=== PATIENT | male | born 1955 | race Caucasian/White ===

== ENCOUNTER 2016-05-30 14:17 | Inpatient (IN) | payer OTHER ==
[~2016-05-30] VITALS: Ht 172.7 cm; Wt 98.8 kg
[2016-05-30] MEDS ORDERED: AMIO200T2 PO (15:19)
[2016-05-30] MEDS ORDERED: ATOR20TA38 PO (15:20)
[2016-05-30] MEDS ORDERED: ALBUTEROL 0.5% (NEB) 2.5 MG/0.5 ML AMP INH STA ×2 (15:20→19:29)
[2016-05-30] MEDS ORDERED: FURO40TA4 PO (15:20)
[2016-05-30] MEDS ORDERED: CLOP75TA27 PO (15:20)
[2016-05-30] MEDS ORDERED: IPRATROPIUM (NEB) 0.5 MG/2.5 ML AMP INH STA ×2 (15:20→19:29)
[2016-05-30] MEDS ORDERED: CARV12.579 PO (15:22)
[2016-05-30] MEDS ORDERED: LOSA25TA5 PO (15:22)
[2016-05-30] MEDS ORDERED: POTA10TA15 PO (15:25)
[2016-05-30] MEDS ORDERED: NIT4 SL (15:26)
[2016-05-30] MEDS ORDERED: LORA-441 PO (15:26)
[2016-05-30 15:38] LABS: AADO2 Arterial 64.2 mmHg (7.0-24.0); Allen Test ACCEPTAB; Arterial COHb 2.6 % (0.0-3.0); Arterial Fraction of Oxyhgb 90.6 % (93.0-99.0); Arterial HCO3 25.7 mmol/L (22.0-26.0); Arterial MetHb 0.3 % (0.0-1.5); Arterial Total Hemglobin 15.7 g/dl (12.0-18.0); MODE NASAL CANNULA
--- NOTE | 2016-05-30 15:53 | ERA ---
ER Documentation Chief Complaint Date/Time DATE: 05/30/16 TIME: 15:48 Chief Complaint SOB SINCE LAST NIGHT, 88% RA, HAD 1 STENT PLACED LAST WEEK HPI This is a 61-year-old male presents to the emergency department complaining of a sudden onset of shortness of breath that began roughly 24 hours prior to arrival. The patient indicates 7 days prior to arrival he had a cardiac stent placed at [facility] with 90% occlusion however the patient is unaware of which artery the stent was placed. He indicates that his shortness of breath is exacerbated with movement. He also indicates that just prior to arrival he felt as though an elephant was sitting on his chest. He is unable to quantify the chest pain as he states it is not necessarily a pain but rather severe discomfort with chest pressure. The patient states that the chest pressure does not radiate to the neck arm back or jaw . He is on Plavix and indicates he was placed on another medication but cannot remember the name but was unable to have this filled. He has had no fevers no shaking or chills. He denies any swelling of his lower extremities. He did not take any analgesic medication prior to arrival and he is taking aspirin on a daily basis. The patient indicates he quit tobacco several months ago but does state that over the past few days he has smoked a few cigarettes. ROS All systems reviewed and are negative except as per history of present illness. Medications Home Meds Reported Medications Nitroglycerin* (Nitrostat*) 0.4 Mg Tab.subl, 0.4 MG SL Q5MIN Y for CHEST PAIN, BOTTLE 05/30/16 Lorazepam* (Ativan*) 0.5 Mg Tablet, 0.5 MG PO HS, #30 TAB 05/30/16 Potassium Chloride (Klor-Con M10) 10 Meq Tab.prt.sr, 10 MEQ PO 05/30/16 Carvedilol* (Carvedilol*) 12.5 Mg Tablet, 12.5 MG PO BID, #60 TAB 05/30/16 Losartan Potassium* (Losartan Potassium*) 25 Mg Tablet, 25 MG PO DAILY, TAB HOLD IF BPS<105 05/30/16 Furosemide* (Furosemide*) 40 Mg Tablet, 40 MG PO DAILY, TAB 05/30/16 Atorvastatin Calcium* (Atorvastatin Calcium*) 20 Mg Tablet, 20 MG PO QHS, #30 TAB 05/30/16 Clopidogrel Bisulfate (Clopidogrel) 75 Mg Tablet, 75 MG PO DAILY, #30 TAB 05/30/16 Amiodarone Hcl* (Amiodarone Hcl*) 200 Mg Tablet, 200 MG PO BID, #60 TAB 05/30/16 Allergies Allergies: Coded Allergies: No Known Allergy (Unverified , 05/30/16) PMhx/Soc History of Surgery: Yes (stent) Anesthesia Reaction: No Hx Neurological Disorder: No Hx Respiratory Disorders: No Hx Cardiac Disorders: Yes Hx Psychiatric Problems: No Hx Miscellaneous Medical Probl: Yes (hernia) Hx Alcohol Use: Yes Hx Substance Use: No Hx Tobacco Use: Yes Smoking Status: Current some day smoker Physical Exam Vitals Vital Signs Date Time Temp Pulse Resp B/P Pulse Ox O2 Delivery O2 Flow Rate FiO2 05/30/16 17:49 Non Rebreather 7 05/30/16 17:47 98.3 102 20 132/79 98 Room Air 2.0 05/30/16 15:42 110 22 96 Nasal Cannula 2.0 05/30/16 15:42 2.0 05/30/16 15:35 Nasal Cannula 2.0 05/30/16 14:23 97.7 98 20 156/87 95 Physical Exam Constitutional:Well-developed. Well-nourished. Patient in severe respiratory distress HEENT:Normocephalic. Atraumatic.Pupils were equal round reactive to light. Moist mucous membranes.No tonsillar exudates. Neck: No nuchal rigidity. No lymphadenopathy. No posterior cervical spine tenderness or step-offs. Respiratory: Patient using accessory muscles of respiration. Rhonchi heard bilaterally. No wheezing on end auscultation. Patient unable to speak more than 2 words at a time before becoming short of breath Cardiovascular: Tachycardic with irregular regular rhythm.No murmurs. No rubs were appreciated.S1, S2 normal. Distal pulses are palpable 2+ bilaterally. GI: Abdomen was soft. Nontender. Non Distended. No pulsatile abdominal masses or bruits. No rebound. No guarding. Bowel sounds were present and normal. Muscle skeletal: Full range of motion of both the upper and lower extremities bilaterally.Normal muscle tone.No assymetrical calf tenderness or swelling. Homans sign negative bilaterally Skin: No petechia, no purpura. No lesions on the palms or the soles of the feet. No maculopapular rash. NEURO: Patient was alert, awake, orientated x3.No facial droop. Gait observed and normal with no ataxia.Speech had regular rate and rhythm. No focal neurological deficits. Result Diagram: 05/30/16 1617 05/30/16 1617 Results 24 hrs Laboratory Tests Test 05/30/16 15:20 05/30/16 16:17 Blood Gas Specimen Source Blood arterial Arterial Blood Date Drawn 05/30/2016 3:30:34 PM Arterial Blood pH (Temp corrected) 7.328 Arterial Blood pCO2 (Temp correct) 50.0mmhg Arterial Blood pO2 (Temp corrected) 69.2mmHG Arterial Blood HCO3 25.7mmol/L Arterial Blood Base Excess -1.0mmol/L Arterial Blood Oxygen Saturation 93.3mmHG Jayro Test ACCEPTAB Arterial Blood Gas Puncture Site Right Radial Arterial Blood Carboxyhemoglobin 2.6% Arterial Blood Methemoglobin 0.3% Blood Gas A-a O2 Differential 64.2mmHg Oxyhemoglobin Percent 90.6% Total Hemoglobin 15.7g/dl Blood Gas Temperature 37.0C Blood Gas Modality NASAL CANNULA FiO2 27.0% Blood Gas Notified Whom JLD Blood Gas Notified Time 05/30/2016 3:38:09 PM White Blood Count 8.110^3/ul Red Blood Count 4.6110^6/ul Hemoglobin 14.8g/dl Hematocrit 45.8% Mean Corpuscular Volume 99.3fl Mean Corpuscular Hemoglobin 32.1pg Mean Corpuscular Hemoglobin Concent 32.3g/dl Red Cell Distribution Width 15.7% Platelet Count 22704^3/UL Mean Platelet Volume 11.6fl Neutrophils % 73.8% Lymphocytes % 13.6% Monocytes % 9.9% Eosinophils % 1.7% Basophils % 0.5% Nucleated Red Blood Cells % 0.0/100WBC Neutrophils # 6.010^3/ul Lymphocytes # 1.110^3/ul Monocytes # 0.810^3/ul Eosinophils # 0.110^3/ul Basophils # 0.010^3/ul Nucleated Red Blood Cells # 0.010^3/ul Prothrombin Time 13.7Sec Prothrombin Time Ratio 1.1 INR International Normalized Ratio 1.05 Activated Partial Thromboplast Time 57.5Sec Sodium Level 138mmol/L Potassium Level 4.5mmol/L Chloride Level 95mmol/L Carbon Dioxide Level 32mmol/L Anion Gap 16 Blood Urea Nitrogen 14mg/dl Creatinine 0.77mg/dl Glucose Level 98mg/dl Calcium Level 8.9mg/dl Total Bilirubin 0.5mg/dl Direct Bilirubin 0.00mg/dl Indirect Bilirubin 0.5mg/dl Aspartate Amino Transf (AST/SGOT) 28IU/L Alanine Aminotransferase (ALT/SGPT) 31IU/L Alkaline Phosphatase 154IU/L Creatine Kinase 40IU/L Creatine Kinase Index 4.7 Creatinine Kinase MB (Mass) 1.87ng/ml Troponin I < 0.012ng/ml B-Type Natriuretic Peptide 879PG/ML Total Protein 7.9g/dl Albumin 4.2g/dl Globulin 3.70g/dl Albumin/Globulin Ratio 1.13 Current Medications Medications (Trade) Dose Ordered Sig/Silvia Route PRN Reason Start Time Stop Time Status Last Admin Dose Admin Albuterol (Proventil 0.5% (Neb)) 10 mg ONCE STAT INH 05/30/16 15:20 05/30/16 15:22 DC 05/30/16 15:41 Ipratropium [place] (Atrovent 0.02% (Neb)) 1 mg ONCE STAT INH 05/30/16 15:20 05/30/16 15:22 DC 05/30/16 15:41 Aspirin (Aspirin) 325 mg ONCE STAT PO 05/30/16 15:59 05/30/16 16:01 DC 05/30/16 16:24 Morphine Sulfate (morphine) 4 mg ONCE STAT IV 05/30/16 15:59 05/30/16 16:01 DC 05/30/16 16:24 Ondansetron HCl 4 mg 4 mg ONCE STAT IV 05/30/16 15:59 05/30/16 16:01 DC 05/30/16 16:24 Vancomycin HCl 250 ml @ 125 mls/hr ONCE STAT IVPB 05/30/16 17:36 05/30/16 19:35 DC 05/30/16 19:28 Piperacillin Sod/ Tazobactam Sod (Zosyn 3.375gm/ 100 ml (Pmx)) 100 ml @ 200 mls/hr ONCE STAT IVPB 05/30/16 17:36 05/30/16 18:05 DC 05/30/16 18:54 IV Flush 10 ml 10 ml STK-MED ONCE .ROUTE 05/30/16 17:39 05/30/16 17:40 DC 05/30/16 18:22 Sodium Chloride (NS) 100 ml @ ud STK-MED ONCE .ROUTE 05/30/16 17:39 05/30/16 17:40 DC 05/30/16 18:23 Iohexol 150 ml 150 ml STK-MED ONCE .ROUTE 05/30/16 17:39 05/30/16 17:40 DC Iohexol (Omnipaque) 100 ml @ ud STK-MED ONCE .ROUTE 05/30/16 18:08 05/30/16 18:09 DC 05/30/16 18:23 Iohexol (Omnipaque 350mg/ ml) 50 ml STK-MED ONCE .ROUTE 05/30/16 18:08 05/30/16 18:09 DC 05/30/16 18:24 Albuterol (Proventil 0.5% (Neb)) 5 mg ONCE STAT INH 05/30/16 19:29 05/30/16 19:44 DC Ipratropium [place] (Atrovent 0.02% (Neb)) 1 mg ONCE STAT INH 05/30/16 19:29 05/30/16 19:44 DC Methylprednisolone Sodium Succinate (Solu-Medrol) 125 mg ONCE STAT IV 05/30/16 19:29 05/30/16 19:44 DC Procedures/MDM The patient presented to the emergency department with shortness of breath. My differential diagnosis included but was not limited to upper airway obstruction , CHF, pulmonary embolism, cardiac ischemia, pneumonia, pneumothorax, anemia, drug overdose, pulmonary edema, COPD or asthma. The patient was immediately placed in a environmental monitoring technician continuous pulse oximetry and IV access was established by nursing staff. The patient was given 325 mg of aspirin p.o. To treat the patient's severe respiratory distress he was placed on continuous nebulizer treatment of albuterol Atrovent. 12 Lead EKG tracing ordered and reviewed by myself showed: Tachycardic with irregular regular rhythm of 106 bpm and no arrhythmia. SC interval not present as P waves were not appreciated due to the atrial fibrillation QRS duration normal. No ST segment elevation No ST segment depression. No changes consistent with acute ischemia. I obtained a chest radiograph reviewed by myself the radiologist which appeared to be a right lower lobe pneumonia that could be contributing to the patient's shortness of breath and difficulty breathing. 1. No pulmonary embolism. 2. Mild to moderate bronchial wall thickening may be sequela of bronchitis, asthma, or other nonspecific airway inflammation. Right middle lobe centrilobular micronodules as well as peribronchiolar ground-glass seen in the right lower lobe is suggestive of bronchiolitis/bronchopneumonia, either from aspiration or atypical infections such as mycobacterium avium intracellulare ( STEFANO). 3. Cardiomegaly with enlargement of the pulmonary artery suggestive of pulmonary arterial hypertension. 4. Evidence of prior granulomatous disease. 5. Nonspecific bilateral adrenal gland thickening could represent adrenal hyperplasia. The patient initially was tachycardic in atrial fibrillation with RVR. However this had resolved after the patient was given supplemental oxygen therefore did not require an IV Cardizem drip The patient was given nebulizer treatments of albuterol Atrovent was also given 125 mg of Solu-Medrol as I could not rule out bronchiolitis after reviewing the CT scan. He had significant improvement of his symptoms. His cardiac troponin was negative. However given that the patient had a recent cardiac stent he will undergo serial 12-lead EKG tracings and cardiac set of enzymes and will be admitted in serious condition with an anticipated stay of greater than 2 minutes to the hospitalist Dr. Ervin. Critical Care: Time: 50 minutes Treatments/Evaluations: Close monitoring and treatment of unstable vital signs, cardiorespiratory, and neurologic status, while maintaining tight balance of fluid, respiratory, and cardiac interventions. Time does not include performing any of the above billable procedures. Departure Diagnosis: Primary Impression: Shortness of breath Additional Impressions: Chest pain Qualified Code: R07.9 - Chest pain, unspecified type Pneumonia Qualified Code: J18.1 - Pneumonia of right lower lobe due to infectious organism Atrial fibrillation with RVR Condition: Serious SEVEN DOBBS May 30, 2016 15:53
[2016-05-30] MEDS ORDERED: ASPIRIN 325 MG TAB PO STA (15:59)
[2016-05-30] MEDS ORDERED: ONDANSETRON 4 MG INJ IV STA (15:59)
[2016-05-30] MEDS ORDERED: morphine 4 MG/ML VIAL IV STA (15:59)
[2016-05-30 16:26] LABS: ADD SCAN DIFF NO
[2016-05-30 16:28] LABS: BASOPHILS % 0.5 % (0.0-2.0); EOSINOPHILS # 0.1 10^3/ul (0.0-0.5); EOSINOPHILS % 1.7 % (0.0-7.0); HEMATOCRIT 45.8 % (42.0-52.0); HEMOGLOBIN 14.8 g/dl (14.0-18.0); LYMPHOCYTES # 1.1 10^3/ul (0.8-2.9); LYMPHOCYTES % 13.6 % (15.0-51.0); MEAN CORPUSCULAR HEMOGLOBIN 32.1 pg (29.0-33.0); MEAN CORPUSCULAR HGB CONC 32.3 g/dl (32.0-37.0); MEAN CORPUSCULAR VOLUME 99.3 fl (82.0-101.0); MEAN PLATELET VOLUME 11.6 fl (7.4-10.4); MONOCYTE # 0.8 10^3/ul (0.3-0.9); MONOCYTES % 9.9 % (0.0-11.0); NEUTROPHILS % 73.8 % (39.0-77.0); PLATELET COUNT 160 10^3/UL (140-415); RED BLOOD COUNT 4.61 10^6/ul (4.70-6.10); RED CELL DISTRIBUTION WIDTH 15.7 % (11.5-14.5); WHITE BLOOD COUNT 8.1 10^3/ul (4.8-10.8)
[2016-05-30 16:40] LABS: INR 1.05; PROTIME 13.7 Sec (12.2-14.2); PT RATIO 1.1
[2016-05-30 16:41] LABS: PARTIAL THROMBOPLASTIN TIME 57.5 Sec (25.0-35.0)
[2016-05-30 16:43] LABS: ALBUMIN 4.2 g/dl (3.3-4.9); CHLORIDE 95 mmol/L (97-110)
[2016-05-30 16:44] LABS: POTASSIUM 4.5 mmol/L (3.5-5.1); SODIUM 138 mmol/L (135-144)
[2016-05-30 16:46] LABS: ALANINE AMINOTRANSFERASE 31 IU/L (13-69); ALBUMIN/GLOBULIN RATIO 1.13; ALKALINE PHOSPHATASE 154 IU/L (42-121); ANION GAP 16 (8-16); ASPARTATE AMINO TRANSFERASE 28 IU/L (15-46); BILIRUBIN,INDIRECT 0.5 mg/dl (0-1.1); BILIRUBIN,TOTAL 0.5 mg/dl (0.2-1.3); BLOOD UREA NITROGEN 14 mg/dl (7-20); CARBON DIOXIDE 32 mmol/L (21-31); CREATININE 0.77 mg/dl (0.61-1.24); GLUCOSE 98 mg/dl (70-220); TOTAL PROTEIN 7.9 g/dl (6.1-8.1)
[2016-05-30 16:47] LABS: CALCIUM 8.9 mg/dl (8.4-10.2); CREATINE KINASE 40 IU/L (23-200)
[2016-05-30 16:55] LABS: B-TYPE NATRIURETIC PEPTIDE 879 PG/ML (0-125)
--- NOTE | 2016-05-30 17:02 | RADRPT ---
PROCEDURE: XR Chest. CLINICAL INDICATION: Chest pain TECHNIQUE: Single portable view of the chest was obtained COMPARISON: None FINDINGS: The heart is enlarged. There is a right lower lobe infiltrate. There is no pleural effusion or pneumothorax. RPTAT: AA IMPRESSION: Mild Cardiomegaly. Right lower lobe infiltrate. .Coleman Siddiqi MD, MD Date Time Electronically viewed and signed by .Coleman Siddiqi MD, on 05/30/2016 17:02 .S/
[2016-05-30 17:10] LABS: CK-MB 1.87 ng/ml (0.0-2.4); TROPONIN-I < 0.012 ng/ml (0.00-0.12)
[2016-05-30] MEDS ORDERED: VANCOMYCIN 1 GM (PMX) 250 ML IVPB STA (17:36)
[2016-05-30] MEDS ORDERED: PIPER-TAZO 3.375 GM IV (PMX) 100 ML IVPB STA (17:36)
[2016-05-30] MEDS ORDERED: SOD CHLORIDE 0.9% 100 ML ONE (17:39)
[2016-05-30] MEDS ORDERED: IOHEXOL 300MG/ML 150 ML BTL ONE (17:39)
[2016-05-30 17:47] VITALS: TEMP 98.3
[2016-05-30] MEDS ORDERED: IOHEXOL 100 ML ONE (18:08)
[2016-05-30] MEDS ORDERED: IOHEXOL 350MG/ML 50 ML BTL ONE (18:08)
--- NOTE | 2016-05-30 18:37 | RADRPT ---
PROCEDURE: CT ANGIOGRAPHY CHEST CLINICAL INDICATION: Shortness of breath TECHNIQUE: Volumetrically acquired images of the thorax obtained with intravenous contrast were re formatted in the axial, coronal, and sagittal planes. CTDI = 19.3 mGy; DLP = 770 mGy-cm. 125 cc of Omnipaque 350 was administered. 3D MIP multiplanar reconstructions were performed and evaluated on the workstation. One or more of the following dose reduction technique were used: Automatic exposure control, adjustment of the mA and/or kV according to patient size, and use of iterative reconstruct ion technique. COMPARISON: 05/30/2016. FINDINGS: LOWER NECK AND CHEST WALL: Normal. AIRWAYS: The trachea and large airways are normal. Mild to moderate bronchial wall thickening i s seen. LUNGS: There is peribronchiolar ground-glass seen in the right lower lobe and micronodules seen in t he right middle lobe. PLEURA: Unremarkable. No pleural thickening or effusions. LYMPH NODES: No significant axillary, hilar, or mediastinal lymphadenopathy by CT size criteria. Sc attered calcified mediastinal lymph nodes are seen suggestive of prior granulomatous disease. CARDIAC: Mild cardiomegaly. No pericardial effusion. VASCULAR: Technically adequate opacification of the pulmonary arteries; no fill defects are seen. T he main pulmonary measures up to 39 mm. Aortic and coronary atherosclerotic calcifications are pres ent. OSSEOUS: No suspicious osseous lesions. Scattered degenerative changes of the thoracic spine is vis ualized. Limited evaluation of the upper abdomen demonstrates bilateral nodular adrenal gland thickening. Sp lenic granulomas are seen. IMPRESSION: 1. No pulmonary embolism. 2. Mild to moderate bronchial wall thickening may be sequela of bronchitis, asthma, or other nonspe cific airway inflammation. Right middle lobe centrilobular micronodules as well as peribronchiolar ground-glass seen in the right lower lobe is suggestive of bronchiolitis/bronchopneumonia, either fr om aspiration or atypical infections such as mycobacterium avium intracellulare (STEFANO). 3. Cardiomegaly with enlargement of the pulmonary artery suggestive of pulmonary arterial hypertens ion. 4. Evidence of prior granulomatous disease. 5. Nonspecific bilateral adrenal gland thickening could represent adrenal hyperplasia. RPTAT:PP .Keanu Silverman MD, MD Date Time Electronically viewed and signed by .Keanu Silverman MD, MD on 05/30/2016 18:36 .V/
[2016-05-30] MEDS ORDERED: METHYLPREDNISOLONE 125 MG INJ IV STA (19:29)
[2016-05-30] MEDS ORDERED: DILTIAZEM 25 MG INJ IV ONE (20:30)
[2016-05-30] MEDS ORDERED: ACETAMINOPHEN 325 MG TAB PO PRN (20:30)
[2016-05-30] MEDS ORDERED: ONDANSETRON 4 MG INJ IV PRN ×2 (20:30→22:30)
[2016-05-30 20:36] LABS: ADD UMIC NO; URINE BILIRUBIN (Dip) NEGATIVE (NEGATIVE); URINE BLOOD (Dip) NEGATIVE (NEGATIVE); URINE COLOR LT. YELLOW (YELLOW); URINE GLUCOSE (Dip) NEGATIVE (NEGATIVE); URINE KETONES (Dip) NEGATIVE (NEGATIVE); URINE LEUKOCYTE ESTERASE (Dip) NEGATIVE (NEGATIVE); URINE NITRITE (Dip) NEGATIVE (NEGATIVE); URINE TOTAL PROTEIN (Dip) NEGATIVE (NEGATIVE); URINE UROBILINOGEN (Dip) 0.2 E.U./dL (0.1-1.0)
[2016-05-30 21:10] VITALS: PULSE 117
[2016-05-30 21:30] VITALS: BP 165/66; RESP 21
[2016-05-30 21:46] VITALS: Ht 172.7 cm; Wt 98.8 kg
[2016-05-30] MEDS ORDERED: NITROGLYCERIN (SL) 0.4 MG TAB SL PRN (22:30)
[2016-05-30] MEDS: HEPARIN 5,000 UNIT/0.5 ML VIAL SC SCH (22:38)
[2016-05-30] MEDS: AMIODARONE 200 MG TAB PO SCH (22:44)
[2016-05-30 23:00] VITALS: BP 148/68; PULSE 96
[2016-05-30] MEDS ORDERED: LORAZEPAM 0.5 MG TAB PO SCH (23:00)
[2016-05-30 23:07] LABS: CREATINE KINASE 32 IU/L (23-200)
[2016-05-30 23:40] LABS: CK-MB 1.27 ng/ml (0.0-2.4); TROPONIN-I < 0.012 ng/ml (0.00-0.12)
[2016-05-31] VITALS (38 sets, daily range): BP systolic 67–125; BP diastolic 52–80; PULSE 84–125; RESP 19–36
[2016-05-31] MEDS: FUROSEMIDE 40 MG TAB PO SCH (05:39)
[2016-05-31] MEDS: LEVOFLOXACIN 500MG/D5W (PMX) 100 ML IVPB SCH (06:42)
[2016-05-31] MEDS ORDERED: MAGNESIUM HYDROXIDE 30ML CUP PO ONE (06:47)
[2016-05-31] MEDS ORDERED: MAGNESIUM HYDROXIDE 30ML CUP PO PRN (07:00)
[2016-05-31 07:47] LABS: ADD SCAN DIFF NO
[2016-05-31 07:54] LABS: BASOPHILS % 0.1 % (0.0-2.0); HEMATOCRIT 45.9 % (42.0-52.0); HEMOGLOBIN 14.1 g/dl (14.0-18.0); LYMPHOCYTES # 0.6 10^3/ul (0.8-2.9); LYMPHOCYTES % 8.5 % (15.0-51.0); MEAN CORPUSCULAR HGB CONC 30.7 g/dl (32.0-37.0); MEAN CORPUSCULAR VOLUME 100.9 fl (82.0-101.0); MEAN PLATELET VOLUME 12.1 fl (7.4-10.4); MONOCYTE # 0.1 10^3/ul (0.3-0.9); MONOCYTES % 1.4 % (0.0-11.0); NEUTROPHIL # 6.6 10^3/ul (1.6-7.5); NEUTROPHILS % 89.6 % (39.0-77.0); PLATELET COUNT 128 10^3/UL (140-415); RED BLOOD COUNT 4.55 10^6/ul (4.70-6.10); RED CELL DISTRIBUTION WIDTH 15.6 % (11.5-14.5); WHITE BLOOD COUNT 7.4 10^3/ul (4.8-10.8)
[2016-05-31] MEDS ORDERED: METHYLPREDNISOLONE 125 MG INJ IV ONE (08:00)
--- NOTE | 2016-05-31 08:06 | HP ---
DATE OF ADMISSION: 05/30/2016 TIME SEEN: 2330 CHIEF COMPLAINT: Chest pain and shortness of breath. HISTORY OF PRESENT ILLNESS: The patient is a 61-year-old male with a history of hypertension and co ronary artery disease status post stent a week ago at [facility] who presented to the em ergency department with chest pain and shortness of breath. He stated his chest pain is pressure-li ke, located in the mid chest and it is nonradiating. His symptoms have been going on for 1 to 2 day s. He stated he has become short of breath with minimal exertion. He stated he initially went to [facility] for hernia repair. He said while he was to be operated on, "my heart started beating irregularly." The workup after that revealed a blocked artery and he had placement of 1 hilaria nt. He stated he has been compliant with his medication including his Plavix; however, he stated he that has not been able to get his nitroglycerin refilled. He denied any fever, chills, nausea, vom iting, diaphoresis. He does, however, complain of constipation. REVIEW OF SYSTEMS: When he presented to the ER, his blood pressure was 156/87, heart rate 98, respi ratory rate 20, temperature 97.7, oxygen saturation 95% on room air. He was in atrial fibrillation with RVR with a heart rate as high as 117 and as low as in the 50s. CBC and CMP are for the most pa rt within acceptable range except a bicarbonate of 32, chloride 95, and an alkaline phosphatase 154. First 2 troponins are negative and BNP is 879. A chest x-ray shows a right lower lung infiltrate. CT pulmonary angiogram was negative for PE, but did show right lobe centrilobular micronodule and some mild ground glass abnormality, likely bronchiolitis/bronchopneumonia. REVIEW OF SYSTEMS: A 12-point review was performed, and is negative except as mentioned in HPI. PAST MEDICAL HISTORY: As per HPI. PAST SURGICAL HISTORY: Cardiac stent placement a week ago. SOCIAL HISTORY: He is an ex-smoker. He used to drink alcohol frequently, but he quit a while ago. He also used to smoke marijuana and used cocaine, but he said he stopped a long time ago. ALLERGIES: NO KNOWN DRUG ALLERGIES. HOME MEDICATIONS: 1. Plavix. 2. Amiodarone. 3. Lipitor. 4. Coreg. 5. Losartan. 6. Nitroglycerin. 7. Ativan. 8. Lasix. 9. Potassium. PHYSICAL EXAMINATION: VITAL SIGNS: Blood pressure 148/68, heart rate 96, respiratory rate 19, temperature 98.2, oxygen sa turation 96% on 6 L. GENERAL: The patient was in very deep sleep, but was arousable and was answering questions appropri ately, even though in between he was going back to sleep. No acute distress. HEENT: No obvious head deformity. Pupils are reactive to light. CARDIOVASCULAR: Irregularly irregular. LUNGS: He has decreased breath sounds at the bases anteriorly. ABDOMEN: Obese. There is a small umbilical hernia which is easily reducible and is nontender. The re are positive bowel sounds. No rigidity, no rebound tenderness EXTREMITIES: No edema. LABORATORY: Pertinent results as mentioned in the HPI. IMAGING: Chest x-ray and CT pulmonary angiogram with results as mentioned in the HPI. IMPRESSION: 1. Chest pain, need to rule out acute coronary syndrome. 2. History of coronary artery disease status post stent placement a week ago. 3. Shortness of breath, likely secondary to congestive heart failure exacerbation. 4. Atrial fibrillation 5. Hypertension. 6. Obesity with a BMI of 33. 7. Bronchopneumonia. PLAN: Continue telemetry monitoring. Will trend his troponin. Obtain a 2-D echo and cardiology co nsult. He will be continued with his home medications which include beta ayesha, Plavix, statin. Will check A1c, fasting lipid, and TSH. We will monitor his rate closely and adjust medication for better rate control. He will receive breathing treatments as needed. He will also be placed on ant ibiotics for pneumonia and will not attempt to send a respiratory culture. Further workup and management per clinical course. Dictated By: JEMIMA BAILEY/BELL Conf#: [id number] DID#: [id number]
[2016-05-31 08:14] LABS: CREATINE KINASE 31 IU/L (23-200)
[2016-05-31 08:26] LABS: CK-MB 1.36 ng/ml (0.0-2.4); TROPONIN-I < 0.012 ng/ml (0.00-0.12)
[2016-05-31 08:31] LABS: ALBUMIN 4.1 g/dl (3.3-4.9); ALBUMIN/GLOBULIN RATIO 1.32; BILIRUBIN,INDIRECT 0.2 mg/dl (0-1.1); BILIRUBIN,TOTAL 0.2 mg/dl (0.2-1.3); CALCIUM 8.8 mg/dl (8.4-10.2); CHOL/HDL RATIO 3.2 RATIO; CREATININE 0.62 mg/dl (0.61-1.24); PHOSPHORUS 5.6 mg/dl (2.5-4.9); POTASSIUM 5.1 mmol/L (3.5-5.1); TOTAL PROTEIN 7.2 g/dl (6.1-8.1)
[2016-05-31] MEDS: ASPIRIN (EC) 81 MG TAB PO SCH (08:48)
[2016-05-31] MEDS: AMIODARONE 200 MG TAB PO SCH ×2 (08:48→20:40)
[2016-05-31] MEDS: CLOPIDOGREL 75 MG TAB PO SCH (08:48)
[2016-05-31] MEDS: POTASSIUM CHLORIDE (SR) 10 MEQ TAB PO SCH (08:49)
[2016-05-31] MEDS: ALBUTEROL/IPRATROPIUM (NEB) 3 ML AMP HHN SCH ×3 (09:00→14:00)
[2016-05-31] MEDS ORDERED: LOSARTAN 25 MG TAB PO SCH (09:00)
[2016-05-31] MEDS: HEPARIN 5,000 UNIT/0.5 ML VIAL SC SCH ×2 (09:05→20:41)
[2016-05-31] MEDS ORDERED: FUROSEMIDE 40 MG INJ ONE (12:13)
[2016-05-31] MEDS ORDERED: FUROSEMIDE 40 MG INJ IV ONE (12:30)
[2016-05-31 13:05] LABS: AADO2 Arterial 317.8 mmHg (7.0-24.0); Allen Test ACCEPTAB; Arterial Fraction of Oxyhgb 98.2 % (93.0-99.0); Arterial HCO3 36.3 mmol/L (22.0-26.0); Arterial MetHb 0.4 % (0.0-1.5); Arterial Total Hemglobin 15.5 g/dl (12.0-18.0); MODE MASK - NRB
--- NOTE | 2016-05-31 13:37 | CONS ---
Date/Time of Note Date/Time of Note DATE: 05/31/16 TIME: 13:33 Assessment/Plan Assessment/Plan Additional Assessment/Plan Stat chest x-ray was reviewed from urgent a few minutes ago which is essentially clear. ABG also was reviewed which is showing hypercapnic respiratory failure. Assessment recommendations; 1. Patient admitted with severe COPD exacerbation with acute bronchitis. 2. Underlying coronary artery disease. 3. History of hypertension, cardiac arrhythmia and hyperlipidemia. Start the patient on BiPAP stat counseling to ICU. Patient also received Solu- Medrol 125 mg 1 now I would recommend starting him on 80 mg every 6 hours. Continue DuoNeb every 4 hours. Obtain a follow-up ABG in 2 hours after BiPAP initiation. My feeling is that patient likely would not require intubation. Consultation Date/Type/Reason Admit Date/Time May 30, 2016 at 20:05 Date of Consultation: May 31, 2016 Type of Consultation: Pulmonary/critical care Reason for Consultation Pulmonary consultation requested for evaluation of COPD exacerbation. Next History presenting any; patient is a 61-year-old male who came into the emergency room yesterday with a few days history of increasing shortness of breath, chest congestion coughing and wheezing. Upon evaluation here an ABG was done which showed mild hypercapnic respiratory failure however over the last couple of hours the patient condition has worsened and a stat ABG was done which is showing severe respiratory acidosis. Patient however still completely awake alert able to talk complains of shortness of breath as well as chest discomfort. Denies any high fever chills according to him he was doing fine until a few days ago the symptoms started. Denies any history of respiratory failure before. Past medical history; 1. History of COPD. 2. History of coronary artery disease, status post recent PTCA. 3. Hypertension. 4. Cardiac arrhythmia. 5. Hyperlipidemia. Medications; were reviewed. Allergies; none. Social history; patient has recently quit smoking. Has a history of heavy smoking. Family history; noncontributory. Occupational he; patient works in sales. Review systems; denies any headache, visual changes. Any high fever or chills. Any body aches or myalgias. Denies any angina. Complains of cough with sputum production. Denies any hemoptysis. Denies angina. Denies abdominal pain, nausea vomiting. Denies any edema. Complains of orthopnea. Denies any urinary symptoms. Denies any melena hematochezia. General exam; middle-aged male, awake and alert. Appearing anxious. Social History Smoking Status: Current every day smoker Exam/Review of Systems Vital Signs Vitals Vital Signs Date Time Temp Pulse Resp B/P Pulse Ox O2 Delivery O2 Flow Rate FiO2 05/31/16 12:26 109 05/31/16 11:56 98.2 19 107/72 95 05/31/16 11:30 Nasal Cannula 5.0 40 Exam HEENT exam; supple neck, no JVD. No lymphadenopathy. Midline trachea. No thyromegaly. No neck bruits. Patient is edentulous and wears dentures. Pupils are midsize reactive to light bilaterally. Chest exam; diminished breath sounds throughout. No added sounds. S1-S2 audible, no murmurs. Regular rhythm. Abdomen exam is; soft, protuberant. No organomegaly. Bowel started. Extremity exam; no peripheral edema. Pulses 1+ bilaterally. INVENTORY ACCOUNTANT exam; cranial nerves are grossly intact there is no motor deficit. Results Result Diagram: 05/31/16 0643 05/31/16 0643 Results 24 hrs Laboratory Tests Test 05/30/16 15:20 05/30/16 16:17 05/30/16 20:12 05/30/16 22:10 Blood Gas Specimen Source Blood arterial Arterial Blood Date Drawn 05/30/2016 3:30:34 PM Arterial Blood pH (Temp corrected) 7.328 L Arterial Blood pCO2 (Temp correct) 50.0 H Arterial Blood pO2 (Temp corrected) 69.2 L Arterial Blood HCO3 25.7 Arterial Blood Base Excess -1.0 Arterial Blood Oxygen Saturation 93.3 L Jayro Test ACCEPTAB Arterial Blood Gas Puncture Site Right Radial Arterial Blood Carboxyhemoglobin 2.6 Arterial Blood Methemoglobin 0.3 Blood Gas A-a O2 Differential 64.2 H Oxyhemoglobin Percent 90.6 L Total Hemoglobin 15.7 Blood Gas Temperature 37.0 Blood Gas Modality NASAL CANNULA FiO2 27.0 Blood Gas Notified Whom JLD Blood Gas Notified Time 05/30/2016 3:38:09 PM White Blood Count 8.1 Red Blood Count 4.61 L Hemoglobin 14.8 Hematocrit 45.8 Mean Corpuscular Volume 99.3 Mean Corpuscular Hemoglobin 32.1 Mean Corpuscular Hemoglobin Concent 32.3 Red Cell Distribution Width 15.7 H Platelet Count 160 Mean Platelet Volume 11.6 H Neutrophils % 73.8 Lymphocytes % 13.6 L Monocytes % 9.9 Eosinophils % 1.7 Basophils % 0.5 Nucleated Red Blood Cells % 0.0 Neutrophils # 6.0 Lymphocytes # 1.1 Monocytes # 0.8 Eosinophils # 0.1 Basophils # 0.0 Nucleated Red Blood Cells # 0.0 Prothrombin Time 13.7 Prothrombin Time Ratio 1.1 INR International Normalized Ratio 1.05 Activated Partial Thromboplast Time 57.5 H Sodium Level 138 Potassium Level 4.5 Chloride Level 95 L Carbon Dioxide Level 32 H Anion Gap 16 Blood Urea Nitrogen 14 Creatinine 0.77 Glucose Level 98 Calcium Level 8.9 Total Bilirubin 0.5 Direct Bilirubin 0.00 Indirect Bilirubin 0.5 Aspartate Amino Transf (AST/SGOT) 28 Alanine Aminotransferase (ALT/SGPT) 31 Alkaline Phosphatase 154 H Creatine Kinase 40 32 Creatine Kinase Index 4.7 4.0 Creatinine Kinase MB (Mass) 1.87 1.27 Troponin I < 0.012 < 0.012 B-Type Natriuretic Peptide 879 H Total Protein 7.9 Albumin 4.2 Globulin 3.70 H Albumin/Globulin Ratio 1.13 Urine Color LT. YELLOW Urine Clarity CLEAR Urine pH 5.0 Urine Specific [place] 1.015 Urine Ketones NEGATIVE Urine Nitrite NEGATIVE Urine Bilirubin NEGATIVE Urine Urobilinogen 0.2 E.U./dL Urine Leukocyte Esterase NEGATIVE Urine Hemoglobin NEGATIVE Urine Glucose NEGATIVE Urine Total Protein NEGATIVE Test 05/31/16 06:43 05/31/16 12:30 White Blood Count 7.4 Red Blood Count 4.55 L Hemoglobin 14.1 Hematocrit 45.9 Mean Corpuscular Volume 100.9 Mean Corpuscular Hemoglobin 31.0 Mean Corpuscular Hemoglobin Concent 30.7 L Red Cell Distribution Width 15.6 H Platelet Count 128 L Mean Platelet Volume 12.1 H Neutrophils % 89.6 H Lymphocytes % 8.5 L Monocytes % 1.4 Eosinophils % 0.0 Basophils % 0.1 Nucleated Red Blood Cells % 0.0 Neutrophils # 6.6 Lymphocytes # 0.6 L Monocytes # 0.1 L Eosinophils # 0.0 Basophils # 0.0 Nucleated Red Blood Cells # 0.0 Sodium Level 133 L Potassium Level 5.1 Chloride Level 97 Carbon Dioxide Level 30 Anion Gap 11 Blood Urea Nitrogen 11 Creatinine 0.62 Glucose Level 149 # Hemoglobin A1c 6.0 H Calcium Level 8.8 Phosphorus Level 5.6 H Magnesium Level 2.0 Total Bilirubin 0.2 Direct Bilirubin 0.00 Indirect Bilirubin 0.2 Aspartate Amino Transf (AST/SGOT) 29 Alanine Aminotransferase (ALT/SGPT) 42 Alkaline Phosphatase 149 H Creatine Kinase 31 Creatine Kinase Index 4.4 Creatinine Kinase MB (Mass) 1.36 Troponin I < 0.012 Total Protein 7.2 Albumin 4.1 Globulin 3.10 Albumin/Globulin Ratio 1.32 Triglycerides Level 93 Cholesterol Level 146 LDL Cholesterol, Calculated 82 HDL Cholesterol 45 Cholesterol/HDL Ratio 3.2 Blood Gas Specimen Source Blood arterial Arterial Blood Date Drawn 05/31/2016 12:40:12 PM Arterial Blood pH (Temp corrected) 7.184 *L Arterial Blood pCO2 (Temp correct) 98.6 *H Arterial Blood pO2 (Temp corrected) 296.6 H Arterial Blood HCO3 36.3 H Arterial Blood Base Excess 4.0 H Arterial Blood Oxygen Saturation 99.6 H Jayro Test ACCEPTAB Arterial Blood Gas Puncture Site Right Radial Arterial Blood Carboxyhemoglobin 1.0 Arterial Blood Methemoglobin 0.4 Blood Gas A-a O2 Differential 317.8 H Oxyhemoglobin Percent 98.2 Total Hemoglobin 15.5 Blood Gas Temperature 37.0 Blood Gas Modality MASK - NRB FiO2 100.0 Blood Gas Critical Value Read Back Dashawn SOMMERS RN Blood Gas Notified Whom ELISSA Blood Gas Notified Time 05/31/2016 1:05:04 PM Medications Medications Current Medications Morphine Sulfate (morphine) 2 mg Q4H PRN IV PAIN LEVEL 7-10; Start 05/30/16 at 22:30 Ondansetron HCl (Zofran Inj) 4 mg Q6H PRN IV NAUSEA AND/OR VOMITING; Start at 22:30 Heparin Sodium (Porcine) (Heparin (5000 Units/0.5 ml)) 5,000 unit BID SC Last administered on 05/31/16 09:05; Admin Dose 5,000 UNIT; Start 05/30/16 at 22:30 Amiodarone HCl (Cordarone) 200 mg BID PO Last administered on 05/31/16 08:48; Admin Dose 200 MG; Start 05/30/16 at 22:30 Atorvastatin Calcium (Lipitor) 20 mg QHS PO ; Start 05/31/16 at 21:00 Carvedilol (Coreg) 12.5 mg BID PO Last administered on 05/31/16 08:50; Admin Dose 12.5 MG; Start 05/30/16 at 22:30 Clopidogrel Bisulfate (plaVIX) 75 mg DAILY PO Last administered on 05/31/16 08 :48; Admin Dose 75 MG; Start 05/31/16 at 09:00 Furosemide (Lasix) 40 mg DAILY@06 PO Last administered on 05/31/16 05:39; Admin Dose 40 MG; Start 05/31/16 at 06:00 Lorazepam (Ativan) 0.5 mg HS PO ; Start 05/31/16 at 21:00 Losartan Potassium (Cozaar) 25 mg DAILY PO Last administered on 05/31/16 08:51 ; Admin Dose 25 MG; Start 05/31/16 at 09:00 Nitroglycerin (Nitroglycerin (Sl Tab) 0.4 Mg) 1 tab PRN PRN SL CHEST PAIN; Start 05/30/16 at 22:30 Potassium Chloride (Klor-Con 10) 10 meq AM PO Last administered on 05/31/16 08 :49; Admin Dose 10 MEQ; Start 05/31/16 at 09:00 Lorazepam 0.5 mg 0.5 mg HS PO Last administered on 05/30/16 23:06; Admin Dose 0.5 MG; Start 05/30/16 at 23:00; Stop 05/31/16 at 20:59 Levofloxacin/ Dextrose (Levaquin 500mg/ D5W 100 ml (Pmx)) 100 ml @ 100 mls/hr Q24H IVPB Last administered on 05/31/16 06:42; Admin Dose 100 MLS/HR; Start at 06:00 Magnesium Hydroxide (Milk Of Mag) 30 ml DAILY PRN PO CONSTIPATION; Start at 07:00 Aspirin (Halfprin) 81 mg DAILY PO Last administered on 05/31/16 08:48; Admin Dose 81 MG; Start 05/31/16 at 09:00 JOSE GILLIS May 31, 2016 13:37
--- NOTE | 2016-05-31 13:59 | RADRPT ---
PROCEDURE: XR Chest 1 view. CLINICAL INDICATION: Shortness of breath TECHNIQUE: AP views of the chest was obtained. COMPARISON: May 30, [address] May 30, 2016 FINDINGS: The heart is large. Calcified atherosclerosis is noted in the aorta. The lungs are hypoinflated. P atchy right lower lobe infiltrates are stable. Atelectasis is noted at the left lung base. The oss eous structures are unchanged. IMPRESSION: Cardiomegaly with calcified atherosclerosis in the aorta. Stable patchy right lower lobe infiltrates. Atelectasis at the left lung base. Hypoinflated lungs. RPTAT: AA .Matteo Alexander MD, MD Date Time Electronically viewed and signed by .Matteo Alexander MD, MD on 05/31/2016 13:58 .P/
[2016-05-31 15:04] LABS: Allen Test ACCEPTAB; Arterial Base Excess 5.5 mmol/L (-3.0-3); Arterial COHb 0.9 % (0.0-3.0); Arterial HCO3 39.2 mmol/L (22.0-26.0); Arterial MetHb 0.3 % (0.0-1.5); Arterial Total Hemglobin 15.2 g/dl (12.0-18.0); Blood Gas IEPAP 15/5; MODE MASK - BIPAP
[2016-05-31] MEDS: MIDAZOLAM (DRIP) 50 mg/50 mL 50 ML IV SCH ×2 (15:57→20:55)
--- NOTE | 2016-05-31 16:27 | PN ---
Date/Time of Note Date/Time of Note DATE: 05/31/16 TIME: 16:12 Assessment/Plan VTE Prophylaxis VTE Prophylaxis Intervention: heparin Lines/Catheters IV [facility]from [facility] Saline Lock Urinary Cath still in place: Yes Reason Cath still needed: other (indicate) (monitor I&O) Assessment/Plan Chief Complaint/Hosp Course Assessment and plan 1. Acute respiratory failure. Multifactorial: CHF/COPD exacerbation/possible pneumonia. Linen Room Worker and roll edge machine operator following. No intubated and going to ICU. Continue diuretic therapy. On bronchodilators. Recent chest x-ray did show stable patchy right lower lobe infiltrates. Continue pulmonary hygiene. Continue with roll edge machine operator recommendations. 2. History of CAD status post stent placement a week ago. Linen Room Worker following. Monitor troponin. Continue statin and aspirin 3. Reported arrhythmia with atrial fibrillation. Resume amiodarone. Monitor on telemetry 4. History of CHF. Continue diuretic therapy. Continue on ARB and beta ayesha. We'll hold should patient become hypotensive 5. Suspect pneumonia. On Levaquin for now. Follow up on lactic acid Disposition and plan: RT was done at 1517. Patient was already on BiPAP shortness of breath and although he did have stable vital signs it was reported that he did start to have decrease in LOC. Patient presented with hypercarbia per ABG 2 on 05/31/2016. Patient was thereafter intubated per roll edge machine operator. Patient was transferred to ICU. We'll continue ICU monitoring. Discussed plan of care with Dr. Reyes Problems: Subjective 24 Hr Interval Summary Free Text/Dictation Patient was seen with respiratory distress. Being intubated per roll edge machine operator Exam/Review of Systems Vital Signs Vitals Vital Signs Date Time Temp Pulse Resp B/P Pulse Ox O2 Delivery O2 Flow Rate FiO2 05/31/16 16:00 100 05/31/16 15:52 98.2 113 20 79/54 99 Mechanical Ventilator 05/31/16 11:30 5.0 Exam Constitutional: distress Respiratory: crackles/rales, diminished breath sounds Cardiovascular: other (tachycardic) Gastrointestinal: non-tender, soft Extremities: edema (bilateral lower extremities) Neurological: other (distress. To be intubated) Skin: nl turgor Results Result Diagram: 05/31/16 0643 05/31/16 0643 Results 24 hrs Laboratory Tests Test 05/30/16 16:17 4/25/17 20:12 05/30/16 22:10 05/31/16 06:43 White Blood Count 8.1 7.4 Red Blood Count 4.61 L 4.55 L Hemoglobin 14.8 14.1 Hematocrit 45.8 45.9 Mean Corpuscular Volume 99.3 100.9 Mean Corpuscular Hemoglobin 32.1 31.0 Mean Corpuscular Hemoglobin Concent 32.3 30.7 L Red Cell Distribution Width 15.7 H 15.6 H Platelet Count 160 128 L Mean Platelet Volume 11.6 H 12.1 H Neutrophils % 73.8 89.6 H Lymphocytes % 13.6 L 8.5 L Monocytes % 9.9 1.4 Eosinophils % 1.7 0.0 Basophils % 0.5 0.1 Nucleated Red Blood Cells % 0.0 0.0 Neutrophils # 6.0 6.6 Lymphocytes # 1.1 0.6 L Monocytes # 0.8 0.1 L Eosinophils # 0.1 0.0 Basophils # 0.0 0.0 Nucleated Red Blood Cells # 0.0 0.0 Prothrombin Time 13.7 Prothrombin Time Ratio 1.1 INR International Normalized Ratio 1.05 Activated Partial Thromboplast Time 57.5 H Sodium Level 138 133 L Potassium Level 4.5 5.1 Chloride Level 95 L 97 Carbon Dioxide Level 32 H 30 Anion Gap 16 11 Blood Urea Nitrogen 14 11 Creatinine 0.77 0.62 Glucose Level 98 149 # Calcium Level 8.9 8.8 Total Bilirubin 0.5 0.2 Direct Bilirubin 0.00 0.00 Indirect Bilirubin 0.5 0.2 Aspartate Amino Transf (AST/SGOT) 28 29 Alanine Aminotransferase (ALT/SGPT) 31 42 Alkaline Phosphatase 154 H 149 H Creatine Kinase 40 32 31 Creatine Kinase Index 4.7 4.0 4.4 Creatinine Kinase MB (Mass) 1.87 1.27 1.36 Troponin I < 0.012 < 0.012 < 0.012 B-Type Natriuretic Peptide 879 H Total Protein 7.9 7.2 Albumin 4.2 4.1 Globulin 3.70 H 3.10 Albumin/Globulin Ratio 1.13 1.32 Urine Color LT. YELLOW Urine Clarity CLEAR Urine pH 5.0 Urine Specific [place] 1.015 Urine Ketones NEGATIVE Urine Nitrite NEGATIVE Urine Bilirubin NEGATIVE Urine Urobilinogen 0.2 E.U./dL Urine Leukocyte Esterase NEGATIVE Urine Hemoglobin NEGATIVE Urine Glucose NEGATIVE Urine Total Protein NEGATIVE Hemoglobin A1c 6.0 H Phosphorus Level 5.6 H Magnesium Level 2.0 Triglycerides Level 93 Cholesterol Level 146 LDL Cholesterol, Calculated 82 HDL Cholesterol 45 Cholesterol/HDL Ratio 3.2 Test 05/31/16 12:30 05/31/16 14:44 Blood Gas Specimen Source Blood arterial Blood arterial Arterial Blood Date Drawn 05/31/2016 12:40:12 PM 05/31/2016 2:50:04 PM Arterial Blood pH (Temp corrected) 7.184 *L 7.149 *L Arterial Blood pCO2 (Temp correct) 98.6 *H 115.4 *H Arterial Blood pO2 (Temp corrected) 296.6 H 82.7 Arterial Blood HCO3 36.3 H 39.2 H Arterial Blood Base Excess 4.0 H 5.5 H Arterial Blood Oxygen Saturation 99.6 H 94.1 L Jayro Test ACCEPTAB ACCEPTAB Arterial Blood Gas Puncture Site Right Radial Right Radial Arterial Blood Carboxyhemoglobin 1.0 0.9 Arterial Blood Methemoglobin 0.4 0.3 Blood Gas A-a O2 Differential 317.8 H 144.0 H Oxyhemoglobin Percent 98.2 93.0 Total Hemoglobin 15.5 15.2 Blood Gas Temperature 37.0 37.0 Blood Gas Modality MASK - NRB MASK - BIPAP FiO2 100.0 50.0 Blood Gas Critical Value Read Back Dashawn SOMMERS RN Blood Gas Notified Whom ELISSA BOWERS Blood Gas Notified Time 05/31/2016 1:05:04 PM 05/31/2016 3:04:44 PM Blood Gas Respiration Rate 20.0 Blood Gas Actual Respiration Rate 22 Blood Gas IPAP/EPAP Ratio 15/5 Medications Medications Current Medications Morphine Sulfate (morphine) 2 mg Q4H PRN IV PAIN LEVEL 7-10; Start 05/30/16 at 22:30 Ondansetron HCl (Zofran Inj) 4 mg Q6H PRN IV NAUSEA AND/OR VOMITING; Start at 22:30 Heparin Sodium (Porcine) (Heparin (5000 Units/0.5 ml)) 5,000 unit BID SC Last administered on 05/31/16 09:05; Admin Dose 5,000 UNIT; Start 05/30/16 at 22:30 Amiodarone HCl (Cordarone) 200 mg BID PO Last administered on 05/31/16 08:48; Admin Dose 200 MG; Start 05/30/16 at 22:30 Atorvastatin Calcium (Lipitor) 20 mg QHS PO ; Start 05/31/16 at 21:00 Carvedilol (Coreg) 12.5 mg BID PO Last administered on 05/31/16 08:50; Admin Dose 12.5 MG; Start 05/30/16 at 22:30 Clopidogrel Bisulfate (plaVIX) 75 mg DAILY PO Last administered on 05/31/16 08 :48; Admin Dose 75 MG; Start 05/31/16 at 09:00 Furosemide (Lasix) 40 mg DAILY@06 PO Last administered on 05/31/16 05:39; Admin Dose 40 MG; Start 05/31/16 at 06:00 Lorazepam (Ativan) 0.5 mg HS PO ; Start 05/31/16 at 21:00 Losartan Potassium (Cozaar) 25 mg DAILY PO Last administered on 05/31/16 08:51 ; Admin Dose 25 MG; Start 05/31/16 at 09:00 Nitroglycerin (Nitroglycerin (Sl Tab) 0.4 Mg) 1 tab PRN PRN SL CHEST PAIN; Start 05/30/16 at 22:30 Potassium Chloride (Klor-Con 10) 10 meq AM PO Last administered on 05/31/16 08 :49; Admin Dose 10 MEQ; Start 05/31/16 at 09:00 Lorazepam 0.5 mg 0.5 mg HS PO Last administered on 05/30/16 23:06; Admin Dose 0.5 MG; Start 05/30/16 at 23:00; Stop 05/31/16 at 20:59 Levofloxacin/ Dextrose (Levaquin 500mg/ D5W 100 ml (Pmx)) 100 ml @ 100 mls/hr Q24H IVPB Last administered on 05/31/16 06:42; Admin Dose 100 MLS/HR; Start at 06:00 Magnesium Hydroxide (Milk Of Mag) 30 ml DAILY PRN PO CONSTIPATION; Start at 07:00 Aspirin (Halfprin) 81 mg DAILY PO Last administered on 05/31/16 08:48; Admin Dose 81 MG; Start 05/31/16 at 09:00 Methylprednisolone Sodium Succinate 80 mg 80 mg Q6 IV ; Start 05/31/16 at 18:00 Midazolam HCl (Versed) 50 ml @ 1 mls/hr TITRATE IV Last administered on t 15:57; Admin Dose 10 MLS/HR; Start 05/31/16 at 16:00 MICHAEL BURCIAGA May 31, 2016 16:27
[2016-05-31] MEDS ORDERED: ALBUTEROL/IPRATROPIUM (NEB) 3 ML AMP HHN SCH (17:00)
[2016-05-31] MEDS ORDERED: ALBUMIN HUMAN 5% 250 ML IV ONE (17:00)
[2016-05-31] MEDS: METHYLPREDNISOLONE 125 MG INJ IV SCH ×2 (17:07→23:13)
[2016-05-31] MEDS: IPRATROPIUM (HFA) 12.9 GM INHALER INH SCH ×2 (17:10→20:06)
[2016-05-31] MEDS: ALBUTEROL 18 GM INHALER INH SCH ×2 (17:10→20:06)
[2016-05-31 18:19] LABS: Allen Test ACCEPTAB; Arterial Base Excess 5.2 mmol/L (-3.0-3); Arterial COHb 0.4 % (0.0-3.0); Arterial Fraction of Oxyhgb 98.9 % (93.0-99.0); Arterial HCO3 34.3 mmol/L (22.0-26.0); Arterial MetHb 0.4 % (0.0-1.5); Arterial Total Hemglobin 14.1 g/dl (12.0-18.0); MODE VENT - AC
[2016-05-31] MEDS ORDERED: SOD CHLORIDE 0.9% 500 ML IV ONE (19:00)
--- NOTE | 2016-05-31 19:00 | RADRPT ---
PROCEDURE: XR Chest. CLINICAL INDICATION: The ET tube placement. TECHNIQUE: PA and Lateral views of the chest were obtained. COMPARISON: Chest x-ray 05/31/2016. FINDINGS: The soft tissues are normal. An endotracheal tube is well-positioned at T3. An NG tube is noted di stal to the GE junction. The bony elements are normal. The heart is enlarged. The cardiomediastin al silhouette and hilar structures are normal. The pulmonary vasculature is normal. There is a left- sided aorta.>. There is a resolving right lower lobe infiltrate and a suboptimal inspiration. The costophrenic angles are normal. IMPRESSION: 1. Satisfactory position of the NG tube distal to the GE junction. 2. The indicative is well positioned near T3. 3. Cardiomegaly. 4. Resolving right lower lobe infiltrate. RPTAT:AAJJ Physician Pastora Date Time Electronically viewed and signed by Ty Jernigan Physician on 05/31/2016 18:59 JEFFERY/
--- NOTE | 2016-05-31 19:15 | CONS ---
DATE OF ADMISSION: 05/30/2016 DATE OF CONSULTATION: 05/31/2016 REASON FOR CONSULTATION: Atrial fibrillation as well as hypotension. REQUESTING PHYSICIAN: Dr. Sanders from the hospitalist service. HISTORY OF PRESENT ILLNESS: Mr. Ole Dia is a 61-year-old male with history of hypertension , coronary artery disease, status post prior stent 1 week prior at [facility] who initiall y presented with complaints of chest pain and shortness of breath. Upon arrival, temperature 98, bl ood pressure 156/87, pulse 98, respiratory rate 20, saturating 95% on room air. The patient's labs were notable for a sodium 138, potassium 4.5, creatinine 0.7, BUN 14, AST 28, ALT 31. Troponin nega tive. BNP of 879. INR of 1.0. ABG revealing a pH of 7.328, a PaO2 of 92, pCO2 of 50. After that, the patient did become respiratory acidosis with a pCO2 increased 98.6 and the pH decreased to 7.18 4. UA negative. White blood cell count 8.1, hemoglobin 14.8, platelet count of 160. The patient u nderwent a CT/CTA revealing no pulmonary embolus, mild to moderate bronchial wall thickening, maybe sequelae of bronchitis, cardiomegaly with enlargement of the pulmonary arteries suggestive of pulmon elsa arterial hypertension, evidence of prior granulomatous disease, nonspecific bilateral adrenal gl and thickening could represent adrenal hyperplasia. He had a chest x-ray showing mild cardiomegaly and right lower lobe infiltrate. The patient's electrocardiogram revealed atrial fibrillation with rapid ventricular response, rate of 106, left axis deviation, anteroseptal Qs, nonspecific ST and T- wave abnormalities. The patient was subsequently admitted to the ICU after requiring emergent intub ation. The patient was initially admitted to the floor and placed on steroids, bronchodilators, Las ix diuresis. The patient had an [employer] today with worsening respiratory distress requiring intubation and transfer to the ICU where he remains at this time. Additionally, the patient since admission gomez s had labile blood pressures as low as 79. PAST MEDICAL HISTORY: As above in HPI. MEDICATIONS CURRENTLY IN HOSPITAL: 1. Lipitor 20 mg at bedtime. 2. Solu-Medrol 80 mg IV q.6h. 3. Albuterol. 4. Atrovent. 5. Versed IV. 6. Plavix 75 mg daily. 7. Cozaar 20 mg daily. 8. Potassium chloride 10 mEq daily. 9. Aspirin 81 mg daily. 10. Lasix 40 mg daily. 11. Levofloxacin. 12. Ativan. 13. Morphine. 14. Heparin 5000 subq b.i.d. 15. Amiodarone 200 mg b.i.d. 16. Coreg 12.5 mg p.o. b.i.d. SOCIAL HISTORY: Prior tobacco, prior ETOH intake, prior marijuana and cocaine. Stopped all now. ALLERGIES: NO KNOWN DRUG ALLERGIES. FAMILY HISTORY: No history of sudden cardiac or early CAD. REVIEW OF SYSTEMS: As above in HPI. CONSTITUTIONAL: No fevers, chills. PULMONARY: Respiratory failure, status post intubation. GASTROINTESTINAL: No vomiting. GENITOURINARY: No hematuria. MUSCULOSKELETAL: Degenerative joint disease. PSYCHIATRIC: No documented psych history. NEUROLOGIC: No documented history of CVA. ENDOCRINE: No documented history of thyroid disease, diabetes mellitus. PHYSICAL EXAMINATION: VITAL SIGNS: Temperature 98.2, blood pressure most recently 79/65, pulse 93, respiratory rate 20, s aturating 98%. GENERAL: The patient is intubated and sedated. NECK: JVP approximately 8 to 9 cm water. CHEST: Upper airway transmitted rhonchorous sounds. HEART: Regular rate and rhythm. Normal S1, S2. I/ systolic murmur, nondisplaced PMI. ABDOMEN: Positive bowel sounds, soft. EXTREMITIES: No pitting edema, 1+ pulses bilaterally, posterior tibial. LABORATORIES: As above in HPI with most recently from today, white count of 7.4, hemoglobin 14.1, p latelet count 128. IMAGING STUDIES: As above in HPI with chest x-ray from today revealing cardiomegaly, calcified athe rosclerosis in the aorta, stable patchy right lower lobe infiltrate, atelectasis left lung base, hyp oinflated lungs. ELECTROCARDIOGRAM: As above in HPI. No further electrocardiograms for my review at this time. IMPRESSION: 1. Atrial fibrillation with some mild rapid ventricular response. 2. Abnormal electrocardiogram, assess for acute coronary syndrome. 3. Respiratory failure, assess for congestive heart failure. 4. History of percutaneous transluminal coronary angioplasty and stent placement 1 week prior at [facility] on aspirin and Plavix. 5. Hypotension. 6. Probable chronic obstructive pulmonary disease by history and chest x-ray findings. 7. Hyponatremia. 8. Respiratory acidosis. RECOMMENDATIONS: 1. At this time, would maintain the patient on telemetry monitoring, follow rhythm and rate closely . 2. Would give patient IV fluid bolus and, if patient pressure continues to remain low, will initiat e patient on pressor support with Levophed. 3. Would continue the patient's dual antiplatelet therapy with aspirin and Plavix and will continue the patient's low dose subcutaneous heparin for prevention of thromboembolic events in the setting of atrial fibrillation. Given the patient's low platelet count, will not initiate on systemic antic oagulation at this time. 4. Would likely hold the patient's Lasix at this time and follow blood pressure closely. 5. We will hold the patient's Losartan at this time and decrease dose of carvedilol. 6. Will likely also discontinue the patient's amiodarone at this time, as the patient is not on sys temic anticoagulation, but we will continue the patient's dual antiplatelet therapy as above. 7. Check a fasting lipid panel for general risk stratification and adjust lipid lowering medication as necessary. 8. Additionally, continue the patient's steroids, bronchodilators, and antibiotics. Thank you for allowing me to take part in the care of this patient. I will continue to follow along very closely with you with further recommendations to be made as the patient progresses through his inpatient hospital clinical course. Dictated By: MIGUEL ANGEL GONSALEZ/BELL Conf#: [id number] DID#: [id number] CC: JEMIMA SANDERS MD;*End*
[2016-05-31] MEDS: DIGOXIN 500 MCG INJ IV SCH (20:02)
[2016-05-31] MEDS: ATORVASTATIN 20 MG TAB PO SCH (20:41)
[2016-05-31] MEDS ORDERED: LORAZEPAM 0.5 MG TAB PO SCH (21:00)
[2016-05-31 21:03] LABS: AADO2 Arterial 221.4 mmHg (7.0-24.0); Allen Test ACCEPTAB; Arterial COHb 0.9 % (0.0-3.0); Arterial Fraction of Oxyhgb 89.5 % (93.0-99.0); Arterial HCO3 33.3 mmol/L (22.0-26.0); Arterial MetHb 0.3 % (0.0-1.5); MODE VENT - AC
[2016-05-31] MEDS: LORAZEPAM 2 MG INJ IV PRN (23:35)
[2016-06-01] VITALS (69 sets, daily range): BP systolic 87–126; BP diastolic 56–88; PULSE 77–118; RESP 20–23
[2016-06-01] MEDS: IPRATROPIUM (HFA) 12.9 GM INHALER INH SCH ×6 (01:00→20:20)
[2016-06-01] MEDS: ALBUTEROL 18 GM INHALER INH SCH ×6 (01:00→20:20)
[2016-06-01] MEDS: MIDAZOLAM (DRIP) 50 mg/50 mL 50 ML IV SCH ×4 (01:42→19:02)
--- NOTE | 2016-06-01 03:06 | RADRPT ---
PROCEDURE: XR Chest. CLINICAL INDICATION: Endotracheal tube reevaluation TECHNIQUE: Portable single view of the chest COMPARISON: 05/31 FINDINGS: Endotracheal tube remains in good position. Nasogastric tube courses towards the stomach and off th e radiographic field. Minimal residual right base opacity. Cardiomegaly. IMPRESSION: No significant interval change. Endotracheal tube remains in good position. RPTAT: HLBE Jaclyn Snowden Physician Date Time Electronically viewed and signed by Jaclyn Snowden, Physician on 06/01/2016 03:06 LE/
[2016-06-01] MEDS: DIGOXIN 500 MCG INJ IV SCH (03:08)
[2016-06-01] MEDS: FUROSEMIDE 40 MG TAB PO SCH (05:24)
[2016-06-01] MEDS: LEVOFLOXACIN 500MG/D5W (PMX) 100 ML IVPB SCH (05:24)
[2016-06-01] MEDS: METHYLPREDNISOLONE 125 MG INJ IV SCH ×4 (05:25→23:51)
[2016-06-01 06:06] LABS: ADD SCAN DIFF NO
[2016-06-01 06:18] LABS: ABNORMAL IP MESSAGE 1; BASOPHILS % 0.1 % (0.0-2.0); HEMATOCRIT 43.7 % (42.0-52.0); HEMOGLOBIN 13.4 g/dl (14.0-18.0); LYMPHOCYTES # 0.5 10^3/ul (0.8-2.9); LYMPHOCYTES % 3.9 % (15.0-51.0); MEAN CORPUSCULAR HEMOGLOBIN 30.7 pg (29.0-33.0); MEAN CORPUSCULAR HGB CONC 30.7 g/dl (32.0-37.0); MEAN PLATELET VOLUME 11.9 fl (7.4-10.4); MONOCYTE # 0.5 10^3/ul (0.3-0.9); MONOCYTES % 4.2 % (0.0-11.0); NEUTROPHIL # 11.2 10^3/ul (1.6-7.5); NEUTROPHILS % 91.1 % (39.0-77.0); PLATELET COUNT 136 10^3/UL (140-415); RED BLOOD COUNT 4.37 10^6/ul (4.70-6.10); RED CELL DISTRIBUTION WIDTH 15.3 % (11.5-14.5); WHITE BLOOD COUNT 12.3 10^3/ul (4.8-10.8)
[2016-06-01 06:19] LABS: AADO2 Arterial 275.1 mmHg (7.0-24.0); Allen Test ACCEPTAB; Arterial Base Excess 6.8 mmol/L (-3.0-3); Arterial COHb 0.7 % (0.0-3.0); Arterial HCO3 35.5 mmol/L (22.0-26.0); Arterial MetHb 0.3 % (0.0-1.5); MODE VENT - AC
[2016-06-01 06:42] LABS: POTASSIUM 4.6 mmol/L (3.5-5.1)
[2016-06-01 06:44] LABS: CREATININE 0.59 mg/dl (0.61-1.24)
[2016-06-01 06:45] LABS: CALCIUM 8.5 mg/dl (8.4-10.2)
[2016-06-01] MEDS: LORAZEPAM 2 MG INJ IV PRN (07:55)
--- NOTE | 2016-06-01 08:58 | RADRPT ---
PROCEDURE: XR Chest. CLINICAL INDICATION: Pneumonia TECHNIQUE: An AP view of the chest was obtained. COMPARISON: Chest x-ray dated 05/31/2016 FINDINGS: The endotracheal tube tip is approximately 6.4 cm above the lacey. The tip of the enteric tube ex tends below the left diaphragm. There is prominence of the interstitial markings. No pleural effusion or pneumothorax is seen. Th e cardiomediastinal silhouette is mildly enlarged . Calcifications are seen within the aortic arch. The osseous structures demonstrate senescent changes. IMPRESSION: 1. Mild prominence of the interstitial markings, may reflect mild underlying interstitial edema or chronic lung changes. No significant interval change. 2. Mild cardiomegaly and aortic atherosclerosis. 3. Tubes and lines, as described above. RPTAT: HH .Kasey Euceda MD, Date Time Electronically viewed and signed by .Kasey Euceda MD, on 06/01/2016 08:58 .G/
[2016-06-01] MEDS ORDERED: LIDOCAINE 1% (MPF) 5 ML VIAL SC ONE (09:30)
[2016-06-01] MEDS: POTASSIUM CHLORIDE (SR) 10 MEQ TAB PO SCH (09:31)
[2016-06-01] MEDS: ASPIRIN (EC) 81 MG TAB PO SCH (09:31)
[2016-06-01] MEDS: CLOPIDOGREL 75 MG TAB PO SCH (09:31)
[2016-06-01] MEDS: AMIODARONE 200 MG TAB PO SCH ×2 (09:32→20:46)
[2016-06-01] MEDS: HEPARIN 5,000 UNIT/0.5 ML VIAL SC SCH ×2 (09:33→20:52)
[2016-06-01] MEDS: PROPOFOL 100 ML IV SCH ×2 (10:16→22:34)
--- NOTE | 2016-06-01 10:56 | PN ---
DATE: 05/31/2016 SUBJECTIVE: Patient Chimera is intubated on mechanical ventilation, appears relatively comfortable at rest, no acute distress, currently afebrile. PHYSICAL EXAMINATION: VITAL SIGNS: Temperature 98, pulse is 110, blood pressure 107/60, O2 saturation 95% on 60% FIO2, or ally intubated. NECK: Supple, no JVD or lymphadenopathy. CARDIAC: S1, S2, no added sounds or murmurs. CHEST: Diminished air entry bilaterally. ABDOMEN: Soft, nontender. No guarding or rebound. EXTREMITIES: No cyanosis, clubbing, edema. NEUROLOGIC: Generalized weakness. LABORATORY DATA: White count 12.3, hemoglobin 13.4, platelets of 136. BUN 19, creatinine 0.59. IN R 1.05. IMAGING: Chest x-ray was reviewed, shows mild interstitial edema. CT angiogram was negative for pu lmonary embolus. IMPRESSION AND PLAN: 1. Pulmonary edema. 2. History of polysubstance abuse. 3. History of coronary artery disease. 4. Hypoxemic respiratory failure. The patient will require 1. Continued antibiotics. 2. Continue bronchodilators. 3. Continue supplemental O2. 4. Continue steroids. 5. DVT and GI prophylaxis. Dictated By: LAST MOORE/BELL Conf#: [id number] DID#: [id number]
--- NOTE | 2016-06-01 11:59 | EN ---
Date/Time of Note Date/Time of Note DATE: 06/01/16 TIME: 11:56 Event Note Medicine Medicine Event Note This is an oral intubation note. Date of procedure is 05/31/2016, time is 4:20 PM. Patient admitted for COPD exacerbation. Developed respiratory failure with severe hypercapnia. Will start on BiPAP and repeat ABG showed worsening hypercapnia. Patient was given etomidate 20 mg IV push that by itself resulted in significant muscle relaxation to the point where the patient was not agitated anymore and oral intubation was readily achieved by 7.5 endotracheal tube, vocal cords were directly visualized. Placement was confirmed by end-tidal CO2 indicator. Patient did not require administration of a paralytic agent. JOSE GILLIS Jun 01, 2016 11:58
--- NOTE | 2016-06-01 13:12 | CONS ---
Date/Time of Note Date/Time of Note DATE: 06/01/16 TIME: 13:05 Assessment/Plan Assessment/Plan Chief Complaint/Hosp Course IMPRESSION: 1. Atrial fibrillation-rate controlled 2. Abnormal electrocardiogram, assess for acute coronary syndrome.-negative troponin x 3 3. Respiratory failure, assess for congestive heart failure. 4. History of percutaneous transluminal coronary angioplasty and stent placement 1 week prior at [facility] on aspirin and Plavix. 5. Hypotension. 6. Probable chronic obstructive pulmonary disease by history and chest x-ray findings. 7. Hyponatremia-improved 8. Respiratory acidosis. Recc: -Tele -serial ecg -Continue coreg as tolerated now that off levo -Contineu amio -Continue asa/plavix -Contineu abx's -F/U cx data Problems: Consultation Date/Type/Reason Admit Date/Time May 30, 2016 at 20:05 Initial Consult Date 05/31/16 Type of Consultation: Cardiology Reason for Consultation AF Referring Provider: BERNARDO PULIDO MD Exam/Review of Systems Vital Signs Vitals Vital Signs Date Time Temp Pulse Resp B/P Pulse Ox O2 Delivery O2 Flow Rate FiO2 06/01/16 12:00 85 06/01/16 11:10 20 97 60 06/01/16 11:00 116/76 Mechanical Ventilator 06/01/16 07:30 97.7 05/31/16 11:30 5.0 Intake and Output 05/31/16 05/31/16 06/01/16 15:00 23:00 07:00 Intake Total 500 ml 1106 ml 263 ml Output Total 1200 ml 750 ml 425 ml Balance -700 ml 356 ml -162 ml Exam Review of Systems: CONSTITUTIONAL: No fevers, chills. PULMONARY: intubated CARDIOVASCULAR: No obviosu chest pain/palpitations GASTROINTESTINAL: No nausea/vomiting. GENITOURINARY: No hematuria/dysuria. MUSCULOSKELETAL: No obvious myagias/arthalgias. PSYCHIATRIC: The patient denies depression. NEUROLOGIC: No weakness Constitutional: alert Psych: no complaints ENMT: mucosa pink and moist Neck: jvd (9 cm water), supple Respiratory: diminished breath sounds (at bases/B) Cardiovascular: regular rate and rhythm Gastrointestinal: non-tender, soft Musculoskeletal: muscle tone (normal) Extremities: edema (none) Neurological: other (No focal deficits) Results Result Diagram: 06/01/16 0889 06/01/16 0530 Results 24 hrs Laboratory Tests Test 05/31/16 14:44 05/31/16 16:45 05/31/16 17:40 05/31/16 20:46 Blood Gas Specimen Source Blood arterial Blood arterial Blood arterial Arterial Blood Date Drawn 05/31/2016 2:50:04 PM 05/31/2016 6:10:50 PM 05/31/2016 8:50:12 PM Arterial Blood pH (Temp corrected) 7.149 *L 7.291 *L 7.317 L Arterial Blood pCO2 (Temp correct) 115.4 *H 72.9 H 66.5 H Arterial Blood pO2 (Temp corrected) 82.7 522.1 H 60.3 L Arterial Blood HCO3 39.2 H 34.3 H 33.3 H Arterial Blood Base Excess 5.5 H 5.2 H 5.0 H Arterial Blood Oxygen Saturation 94.1 L 99.7 H 90.6 L Jayro Test ACCEPTAB ACCEPTAB ACCEPTAB Arterial Blood Gas Puncture Site Right Radial Right Radial Right Radial Arterial Blood Carboxyhemoglobin 0.9 0.4 0.9 Arterial Blood Methemoglobin 0.3 0.4 0.3 Blood Gas A-a O2 Differential 144.0 H 118.0 H 221.4 H Oxyhemoglobin Percent 93.0 98.9 89.5 L Total Hemoglobin 15.2 14.1 14.0 Blood Gas Temperature 37.0 37.0 37.0 Blood Gas Respiration Rate 20.0 20.0 20.0 Blood Gas Actual Respiration Rate 22 20 20 Blood Gas Modality MASK - BIPAP VENT - AC VENT - AC FiO2 50.0 100.0 50.0 Blood Gas IPAP/EPAP Ratio 15/5 Blood Gas Critical Value Read Back O MATTHIEU Diallo,[place] Blood Gas Notified Whom ELISSA VERGARA RCP MA Blood Gas Notified Time 05/31/2016 3:04:44 PM 05/31/2016 6:19:29 PM 05/31/2016 9:03:04 PM Lactic Acid Level 1.5 Blood Gas Tidal Volume 550.0 550.0 Blood Gas Low PEEP Setting 5.0 5.0 Test 06/01/16 05:30 06/01/16 06:00 White Blood Count 12.3 #H Red Blood Count 4.37 L Hemoglobin 13.4 L Hematocrit 43.7 Mean Corpuscular Volume 100.0 Mean Corpuscular Hemoglobin 30.7 Mean Corpuscular Hemoglobin Concent 30.7 L Red Cell Distribution Width 15.3 H Platelet Count 136 L Mean Platelet Volume 11.9 H Neutrophils % 91.1 H Lymphocytes % 3.9 L Monocytes % 4.2 Eosinophils % 0.0 Basophils % 0.1 Nucleated Red Blood Cells % 0.0 Neutrophils # 11.2 H Lymphocytes # 0.5 L Monocytes # 0.5 Eosinophils # 0.0 Basophils # 0.0 Nucleated Red Blood Cells # 0.0 Sodium Level 138 Potassium Level 4.6 Chloride Level 95 L Carbon Dioxide Level 33 H Anion Gap 15 Blood Urea Nitrogen 19 Creatinine 0.59 L Glucose Level 161 Calcium Level 8.5 Blood Gas Specimen Source Blood arterial Arterial Blood Date Drawn 06/01/2016 5:55:32 AM Arterial Blood pH (Temp corrected) 7.327 L Arterial Blood pCO2 (Temp correct) 69.4 H Arterial Blood pO2 (Temp corrected) 76.4 L Arterial Blood HCO3 35.5 H Arterial Blood Base Excess 6.8 H Arterial Blood Oxygen Saturation 94.9 L Jayro Test ACCEPTAB Arterial Blood Gas Puncture Site Right Radial Arterial Blood Carboxyhemoglobin 0.7 Arterial Blood Methemoglobin 0.3 Blood Gas A-a O2 Differential 275.1 H Oxyhemoglobin Percent 94.0 Total Hemoglobin 15.0 Blood Gas Temperature 37.0 Blood Gas Respiration Rate 20.0 Blood Gas Actual Respiration Rate 20 Blood Gas Modality VENT - AC FiO2 60.0 Blood Gas Tidal Volume 550.0 Blood Gas Low PEEP Setting 5.0 Blood Gas Inspiratory Pressure 38.0 Blood Gas Notified Whom MG Blood Gas Notified Time 06/01/2016 6:19:14 AM Medications Medications Current Medications Morphine Sulfate (morphine) 2 mg Q4H PRN IV PAIN LEVEL 7-10; Start 05/30/16 at 22:30 Ondansetron HCl (Zofran Inj) 4 mg Q6H PRN IV NAUSEA AND/OR VOMITING; Start at 22:30 Heparin Sodium (Porcine) (Heparin (5000 Units/0.5 ml)) 5,000 unit BID SC Last administered on 06/01/16 09:33; Admin Dose 5,000 UNIT; Start 05/30/16 at 22:30 Amiodarone HCl (Cordarone) 200 mg BID PO Last administered on 06/01/16 09:32; Admin Dose 200 MG; Start 05/30/16 at 22:30 Atorvastatin Calcium (Lipitor) 20 mg QHS PO Last administered on 05/31/16 20: 41; Admin Dose 20 MG; Start 05/31/16 at 21:00 Clopidogrel Bisulfate (plaVIX) 75 mg DAILY PO Last administered on 06/01/16 09 :31; Admin Dose 75 MG; Start 05/31/16 at 09:00 Furosemide (Lasix) 40 mg DAILY@06 PO Last administered on 06/01/16 05:24; Admin Dose 40 MG; Start 05/31/16 at 06:00 Losartan Potassium (Cozaar) 25 mg DAILY PO Last administered on 05/31/16 08:51 ; Admin Dose 25 MG; Start 05/31/16 at 09:00; Status Future Hold Nitroglycerin (Nitroglycerin (Sl Tab) 0.4 Mg) 1 tab PRN PRN SL CHEST PAIN; Start 05/30/16 at 22:30 Potassium Chloride 10 meq 10 meq AM PO Last administered on 06/01/16 09:31; Admin Dose 10 MEQ; Start 05/31/16 at 09:00 Levofloxacin/ Dextrose (Levaquin 500mg/ D5W 100 ml (Pmx)) 100 ml @ 100 mls/hr Q24H IVPB Last administered on 06/01/16 05:24; Admin Dose 100 MLS/HR; Start at 06:00 Magnesium Hydroxide (Milk Of Mag) 30 ml DAILY PRN PO CONSTIPATION; Start at 07:00 Aspirin (Halfprin) 81 mg DAILY PO Last administered on 06/01/16 09:31; Admin Dose 81 MG; Start 05/31/16 at 09:00 Methylprednisolone Sodium Succinate 80 mg 80 mg Q6 IV Last administered on 06/01 05:25; Admin Dose 80 MG; Start 05/31/16 at 18:00 Midazolam HCl (Versed) 50 ml @ 1 mls/hr TITRATE IV Last administered on 06:47; Admin Dose 10 MLS/HR; Start 05/31/16 at 16:00 Carvedilol 6.25 mg 6.25 mg BID PO ; Start 05/31/16 at 21:00 Norepinephrine/ Dextrose (Levophed/D5W) 500 ml @ 1.87 mls/hr TITRATE IV Last administered on 05/31/16 19:57; Admin Dose 5.62 MLS/HR; Start 05/31/16 at 19:00 Lorazepam 2 mg 2 mg Q6H PRN IV ANXIETY Last administered on 06/01/16 07:55; Admin Dose 2 MG; Start 05/31/16 at 23:30 Propofol (Diprivan) 100 ml @ 2.964 mls/ hr Q12H IV Last administered on 10:16; Admin Dose 2.964 MLS/HR; Start 06/01/16 at 09:30 MIGUEL ANGEL GAONA Jun 01, 2016 13:12
--- NOTE | 2016-06-01 13:59 | RADRPT ---
PROCEDURE: Chest x-ray CLINICAL INDICATION: Check Line Placement TECHNIQUE: Single frontal view COMPARISON: 06/01/2016 FINDINGS: The cardiomediastinal silhouette is mildly enlarged. There is an endotracheal tube by 0.8 cm from t he lacey. There is a left PICC line extending to the superior vena cava. Pulmonary vasculature is mildly prominent. There is left base atelectasis. There is no evidence of pleural effusion. There is no pneumothorax. Osseous structures appear unremarkable. IMPRESSION: 1. Left PICC line in place. Endotracheal tube in place. 2. Mild cardiomegaly and pulmonary vascular congestion. 3. Left base atelectasis.. RPTAT: DD .Charli Flores MD, MD Date Time Electronically viewed and signed by .Charli Flores MD, on 06/01/2016 13:58 .T/
[2016-06-01] MEDS ORDERED: SOD CHLORIDE 0.9% 100 ML ONE (14:00)
--- NOTE | 2016-06-01 14:49 | RADRPT ---
PROCEDURE: Ultrasound guidance for placement of needle in left upper extremity vein. CLINICAL INDICATION: Venous access. TECHNIQUE: Limited sonography of the left upper extremity was performed. Ultrasound images were recorded and s tored in the patient's medical record. COMPARISON: None. FINDINGS: The ultrasound images demonstrate a patent left upper extremity vein. The PICC line was inserted by the PICC line nurse. IMPRESSION: 1. Ultrasound guidance for a needle placement in a left upper extremity vein. 2. The left upper extremity vein is patent. RPTAT: QQ .Phani De La Fuente MD, MD Date Time Electronically viewed and signed by .Phani De La Fuente MD, MD on 06/01/2016 14:49 .R/
--- NOTE | 2016-06-01 15:20 | PN ---
Date/Time of Note Date/Time of Note DATE: 06/01/16 TIME: 15:15 Assessment/Plan VTE Prophylaxis VTE Prophylaxis Intervention: heparin Lines/Catheters IV Catheter Type (from [facility]): PICC Line Central line still needed: Yes Urinary Cath still in place: Yes Reason Cath still needed: other (indicate) (monitor I&O) Assessment/Plan Chief Complaint/Hosp Course Assessment and plan 1. Acute respiratory failure. Multifactorial: CHF/COPD exacerbation/possible pneumonia. Deputy Bailiff and production operations manager following. Continue diuretic therapy. On bronchodilators. Recent chest x-ray did show stable patchy right lower lobe infiltrates. Continue pulmonary hygiene. Continue with production operations manager recommendations. vent liberation as tolerated 2. History of CAD status post stent placement a week ago. Deputy Bailiff following. Monitor troponin. Continue statin and aspirin. Follow up with pot annealer recs 3. Reported arrhythmia with atrial fibrillation. continue amiodarone and telemetry monitoring 4. History of CHF. Continue diuretic therapy. . Continue on ARB and beta ayesha. We'll hold should patient become hypotensive 5. Suspect pneumonia. cont on abx Disposition and plan: on mechanical ventilation now. off of vasopressor. vent liberation per pulm. cont icu monitoring Discussed plan of care with Dr. Reyes Critical Care time: 30 minutes Problems: Subjective 24 Hr Interval Summary Free Text/Dictation Intubated and sedated at this time. Off vasopressor. RN at bedside Exam/Review of Systems Vital Signs Vitals Vital Signs Date Time Temp Pulse Resp B/P Pulse Ox O2 Delivery O2 Flow Rate FiO2 06/01/16 14:00 83 20 122/77 Mechanical Ventilator 06/01/16 13:30 98 06/01/16 12:00 97.9 06/01/16 11:10 60 05/31/16 11:30 5.0 Intake and Output 05/31/16 05/31/16 06/01/16 15:00 23:00 07:00 Intake Total 500 ml 1106 ml 273 ml Output Total 1200 ml 750 ml 425 ml Balance -700 ml 356 ml -152 ml Exam Constitutional: other (intubated and sedated ) Head: normocephalic Respiratory: crackles/rales, diminished breath sounds Cardiovascular: other (regular rate ) Gastrointestinal: other (soft, minimally protuberant) Extremities: edema (BLE , BUE ) Neurological: other (intubated and sedated ) Results Result Diagram: 06/01/16 0530 06/01/16 0530 Results 24 hrs Laboratory Tests Test 05/31/16 16:45 05/31/16 17:40 05/31/16 20:46 06/01/16 05:30 Lactic Acid Level 1.5 Blood Gas Specimen Source Blood arterial Blood arterial Arterial Blood Date Drawn 05/31/2016 6:10:50 PM 05/31/2016 8:50:12 PM Arterial Blood pH (Temp corrected) 7.291 *L 7.317 L Arterial Blood pCO2 (Temp correct) 72.9 H 66.5 H Arterial Blood pO2 (Temp corrected) 522.1 H 60.3 L Arterial Blood HCO3 34.3 H 33.3 H Arterial Blood Base Excess 5.2 H 5.0 H Arterial Blood Oxygen Saturation 99.7 H 90.6 L Jayro Test ACCEPTAB ACCEPTAB Arterial Blood Gas Puncture Site Right Radial Right Radial Arterial Blood Carboxyhemoglobin 0.4 0.9 Arterial Blood Methemoglobin 0.4 0.3 Blood Gas A-a O2 Differential 118.0 H 221.4 H Oxyhemoglobin Percent 98.9 89.5 L Total Hemoglobin 14.1 14.0 Blood Gas Temperature 37.0 37.0 Blood Gas Respiration Rate 20.0 20.0 Blood Gas Actual Respiration Rate 20 20 Blood Gas Modality VENT - AC VENT - AC FiO2 100.0 50.0 Blood Gas Tidal Volume 550.0 550.0 Blood Gas Low PEEP Setting 5.0 5.0 Blood Gas Critical Value Read Back SHANIQUE Diallo RN Blood Gas Notified Whom LADONNA VERGARA MA Blood Gas Notified Time 05/31/2016 6:19:29 PM 05/31/2016 9:03:04 PM White Blood Count 12.3 #H Red Blood Count 4.37 L Hemoglobin 13.4 L Hematocrit 43.7 Mean Corpuscular Volume 100.0 Mean Corpuscular Hemoglobin 30.7 Mean Corpuscular Hemoglobin Concent 30.7 L Red Cell Distribution Width 15.3 H Platelet Count 136 L Mean Platelet Volume 11.9 H Neutrophils % 91.1 H Lymphocytes % 3.9 L Monocytes % 4.2 Eosinophils % 0.0 Basophils % 0.1 Nucleated Red Blood Cells % 0.0 Neutrophils # 11.2 H Lymphocytes # 0.5 L Monocytes # 0.5 Eosinophils # 0.0 Basophils # 0.0 Nucleated Red Blood Cells # 0.0 Sodium Level 138 Potassium Level 4.6 Chloride Level 95 L Carbon Dioxide Level 33 H Anion Gap 15 Blood Urea Nitrogen 19 Creatinine 0.59 L Glucose Level 161 Calcium Level 8.5 Test 06/01/16 06:00 Blood Gas Specimen Source Blood arterial Arterial Blood Date Drawn 06/01/2016 5:55:32 AM Arterial Blood pH (Temp corrected) 7.327 L Arterial Blood pCO2 (Temp correct) 69.4 H Arterial Blood pO2 (Temp corrected) 76.4 L Arterial Blood HCO3 35.5 H Arterial Blood Base Excess 6.8 H Arterial Blood Oxygen Saturation 94.9 L Jayro Test ACCEPTAB Arterial Blood Gas Puncture Site Right Radial Arterial Blood Carboxyhemoglobin 0.7 Arterial Blood Methemoglobin 0.3 Blood Gas A-a O2 Differential 275.1 H Oxyhemoglobin Percent 94.0 Total Hemoglobin 15.0 Blood Gas Temperature 37.0 Blood Gas Respiration Rate 20.0 Blood Gas Actual Respiration Rate 20 Blood Gas Modality VENT - AC FiO2 60.0 Blood Gas Tidal Volume 550.0 Blood Gas Low PEEP Setting 5.0 Blood Gas Inspiratory Pressure 38.0 Blood Gas Notified Whom MG Blood Gas Notified Time 06/01/2016 6:19:14 AM Medications Medications Current Medications Morphine Sulfate (morphine) 2 mg Q4H PRN IV PAIN LEVEL 7-10; Start 05/30/16 at 22:30 Ondansetron HCl (Zofran Inj) 4 mg Q6H PRN IV NAUSEA AND/OR VOMITING; Start at 22:30 Heparin Sodium (Porcine) (Heparin (5000 Units/0.5 ml)) 5,000 unit BID SC Last administered on 06/01/16 09:33; Admin Dose 5,000 UNIT; Start 05/30/16 at 22:30 Amiodarone HCl (Cordarone) 200 mg BID PO Last administered on 06/01/16 09:32; Admin Dose 200 MG; Start 05/30/16 at 22:30 Atorvastatin Calcium (Lipitor) 20 mg QHS PO Last administered on 05/31/16 20: 41; Admin Dose 20 MG; Start 05/31/16 at 21:00 Clopidogrel Bisulfate (plaVIX) 75 mg DAILY PO Last administered on 06/01/16 09 :31; Admin Dose 75 MG; Start 05/31/16 at 09:00 Furosemide (Lasix) 40 mg DAILY@06 PO Last administered on 06/01/16 05:24; Admin Dose 40 MG; Start 05/31/16 at 06:00 Losartan Potassium (Cozaar) 25 mg DAILY PO Last administered on 05/31/16 08:51 ; Admin Dose 25 MG; Start 05/31/16 at 09:00; Status Future Hold Nitroglycerin (Nitroglycerin (Sl Tab) 0.4 Mg) 1 tab PRN PRN SL CHEST PAIN; Start 05/30/16 at 22:30 Potassium Chloride 10 meq 10 meq AM PO Last administered on 06/01/16 09:31; Admin Dose 10 MEQ; Start 05/31/16 at 09:00 Levofloxacin/ Dextrose (Levaquin 500mg/ D5W 100 ml (Pmx)) 100 ml @ 100 mls/hr Q24H IVPB Last administered on 06/01/16 05:24; Admin Dose 100 MLS/HR; Start at 06:00 Magnesium Hydroxide (Milk Of Mag) 30 ml DAILY PRN PO CONSTIPATION; Start at 07:00 Aspirin (Halfprin) 81 mg DAILY PO Last administered on 06/01/16 09:31; Admin Dose 81 MG; Start 05/31/16 at 09:00 Methylprednisolone Sodium Succinate 80 mg 80 mg Q6 IV Last administered on 06/01 13:06; Admin Dose 80 MG; Start 05/31/16 at 18:00 Midazolam HCl (Versed) 50 ml @ 1 mls/hr TITRATE IV Last administered on 13:15; Admin Dose 10 MLS/HR; Start 05/31/16 at 16:00 Carvedilol 6.25 mg 6.25 mg BID PO ; Start 05/31/16 at 21:00 Norepinephrine/ Dextrose (Levophed/D5W) 500 ml @ 1.87 mls/hr TITRATE IV Last administered on 05/31/16 19:57; Admin Dose 5.62 MLS/HR; Start 05/31/16 at 19:00 Lorazepam 2 mg 2 mg Q6H PRN IV ANXIETY Last administered on 06/01/16 07:55; Admin Dose 2 MG; Start 05/31/16 at 23:30 Propofol (Diprivan) 100 ml @ 2.964 mls/ hr Q12H IV Last administered on t 10:16; Admin Dose 2.964 MLS/HR; Start 06/01/16 at 09:30 IV Flush (NS 10 ml) 10 ml PRN PRN IV IV PROTOCOL; Start 06/01/16 at 13:30 MICHAEL BURCIAGA Jun 01, 2016 15:20
[2016-06-01] MEDS: ATORVASTATIN 20 MG TAB PO SCH (20:45)
[2016-06-02] VITALS (58 sets, daily range): BP systolic 85–148; BP diastolic 51–92; PULSE 74–134; RESP 14–49
[2016-06-02] MEDS: IPRATROPIUM (HFA) 12.9 GM INHALER INH SCH ×6 (00:31→21:07)
[2016-06-02] MEDS: ALBUTEROL 18 GM INHALER INH SCH ×6 (00:31→21:08)
[2016-06-02] MEDS: MIDAZOLAM (DRIP) 50 mg/50 mL 50 ML IV SCH ×4 (00:53→18:23)
[2016-06-02 04:57] LABS: ADD SCAN DIFF NO
[2016-06-02 05:04] LABS: BASOPHILS % 0.1 % (0.0-2.0); HEMATOCRIT 41.8 % (42.0-52.0); HEMOGLOBIN 13.2 g/dl (14.0-18.0); LYMPHOCYTES # 0.7 10^3/ul (0.8-2.9); LYMPHOCYTES % 8.3 % (15.0-51.0); MEAN CORPUSCULAR HEMOGLOBIN 31.9 pg (29.0-33.0); MEAN CORPUSCULAR HGB CONC 31.6 g/dl (32.0-37.0); MONOCYTE # 0.4 10^3/ul (0.3-0.9); MONOCYTES % 4.4 % (0.0-11.0); NEUTROPHIL # 7.5 10^3/ul (1.6-7.5); NEUTROPHILS % 86.6 % (39.0-77.0); PLATELET COUNT 118 10^3/UL (140-415); RED BLOOD COUNT 4.14 10^6/ul (4.70-6.10); RED CELL DISTRIBUTION WIDTH 15.3 % (11.5-14.5); WHITE BLOOD COUNT 8.6 10^3/ul (4.8-10.8)
[2016-06-02 05:30] LABS: CALCIUM 8.7 mg/dl (8.4-10.2); CREATININE 0.59 mg/dl (0.61-1.24); MAGNESIUM 2.6 mg/dl (1.7-2.5); PHOSPHORUS 3.4 mg/dl (2.5-4.9); POTASSIUM 4.9 mmol/L (3.5-5.1)
[2016-06-02] MEDS: METHYLPREDNISOLONE 125 MG INJ IV SCH ×3 (05:51→17:59)
[2016-06-02] MEDS: LEVOFLOXACIN 500MG/D5W (PMX) 100 ML IVPB SCH (05:51)
[2016-06-02] MEDS: FUROSEMIDE 40 MG TAB PO SCH (05:52)
--- NOTE | 2016-06-02 08:21 | RADRPT ---
PROCEDURE: XR Chest. CLINICAL INDICATION: CHF TECHNIQUE: An AP view of the chest was obtained. COMPARISON: Chest x-ray dated 06/01/2016 FINDINGS: The endotracheal tube tip is approximately 5.4 cm above the lacey. The tip of the enteric tube ex tends below the left diaphragm. There is a left upper extremity PICC line with tip near the cavoatri al junction. There is prominence of the interstitial and central pulmonary vascular markings. No pleural effusi on or pneumothorax is seen. The cardiomediastinal silhouette is mildly enlarged . Calcifications a re seen within the aortic arch. The osseous structures demonstrate senescent changes. IMPRESSION: 1. Findings suggestive of pulmonary vascular congestion/interstitial edema. No significant interva l change. 2. Mild cardiomegaly and aortic atherosclerosis. 3. Tubes and lines, as described above. RPTAT: HH .Kasey Euceda MD, MD Date Time Electronically viewed and signed by .Kasey Euceda MD, on 06/02/2016 08:20 .G/
[2016-06-02 08:40] LABS: AADO2 Arterial 252.3 mmHg (7.0-24.0); Allen Test ACCEPTAB; Arterial Base Excess 4.2 mmol/L (-3.0-3); Arterial COHb 0.3 % (0.0-3.0); Arterial Fraction of Oxyhgb 96.9 % (93.0-99.0); Arterial HCO3 32.6 mmol/L (22.0-26.0); Arterial MetHb 0.4 % (0.0-1.5); Arterial Total Hemglobin 14.9 g/dl (12.0-18.0); MODE VENT - AC
[2016-06-02] MEDS: AMIODARONE 200 MG TAB PO SCH ×2 (09:00→20:45)
[2016-06-02] MEDS: ASPIRIN (EC) 81 MG TAB PO SCH (09:02)
[2016-06-02] MEDS: CLOPIDOGREL 75 MG TAB PO SCH (09:03)
[2016-06-02] MEDS: POTASSIUM CHLORIDE (SR) 10 MEQ TAB PO SCH (09:06)
[2016-06-02] MEDS: HEPARIN 5,000 UNIT/0.5 ML VIAL SC SCH (09:09)
--- NOTE | 2016-06-02 10:42 | CONS ---
Date/Time of Note Date/Time of Note DATE: 06/02/16 TIME: 10:41 Consult Date/Type/Reason Admit Date/Time May 30, 2016 at 20:05 Initial Consult Date 05/31/16 Type of Consultation: pulmonary ICU Ordering Provider: BERNARDO PULIDO MD Subjective Patient remains intubated sedated on mechanical ventilation comfortable with no events overnight. Objective Vital Signs Date Time Temp Pulse Resp B/P Pulse Ox O2 Delivery O2 Flow Rate FiO2 06/02/16 10:00 111 49 144/83 94 Mechanical Ventilator 06/02/16 07:30 98.0 06/02/16 04:59 60 05/31/16 11:30 5.0 Intake and Output 06/01/16 06/01/16 06/02/16 15:00 23:00 07:00 Intake Total 229.608 ml 467.400 ml 577.424 ml Output Total 310 ml 460 ml 770 ml Balance -80.392 ml 7.400 ml -192.576 ml Exam PHYSICAL EXAMINATION: Well-nourished well-developed gentleman intubated on mechanical ventilation VITAL SIGNS: As above NECK: Supple, no JVD or lymphadenopathy. CARDIAC: S1, S2, no added sounds or murmurs. CHEST: Diminished air entry bilaterally. ABDOMEN: Soft, nontender. No guarding or rebound. EXTREMITIES: No cyanosis, clubbing, edema. NEUROLOGIC: Generalized weakness. Results/Medications Result Diagram: 06/02/16 0453 06/02/16 0453 Results 24 hrs Laboratory Tests Test 06/02/16 04:53 06/02/16 07:00 White Blood Count 8.6 # Red Blood Count 4.14 L Hemoglobin 13.2 L Hematocrit 41.8 L Mean Corpuscular Volume 101.0 Mean Corpuscular Hemoglobin 31.9 Mean Corpuscular Hemoglobin Concent 31.6 L Red Cell Distribution Width 15.3 H Platelet Count 118 L Mean Platelet Volume 12.0 H Neutrophils % 86.6 H Lymphocytes % 8.3 L Monocytes % 4.4 Eosinophils % 0.0 Basophils % 0.1 Nucleated Red Blood Cells % 0.0 Neutrophils # 7.5 Lymphocytes # 0.7 L Monocytes # 0.4 Eosinophils # 0.0 Basophils # 0.0 Nucleated Red Blood Cells # 0.0 Sodium Level 136 Potassium Level 4.9 Chloride Level 98 Carbon Dioxide Level 35 H Anion Gap 8 Blood Urea Nitrogen 23 H Creatinine 0.59 L Glucose Level 141 Calcium Level 8.7 Phosphorus Level 3.4 # Magnesium Level 2.6 H Blood Gas Specimen Source Blood arterial Arterial Blood Date Drawn 06/02/2016 7:20:06 AM Arterial Blood pH (Temp corrected) 7.316 L Arterial Blood pCO2 (Temp correct) 65.3 H Arterial Blood pO2 (Temp corrected) 103.7 H Arterial Blood HCO3 32.6 H Arterial Blood Base Excess 4.2 H Arterial Blood Oxygen Saturation 97.6 Jayro Test ACCEPTAB Arterial Blood Gas Puncture Site Left Radial Arterial Blood Carboxyhemoglobin 0.3 Arterial Blood Methemoglobin 0.4 Blood Gas A-a O2 Differential 252.3 H Oxyhemoglobin Percent 96.9 Total Hemoglobin 14.9 Blood Gas Temperature 37.0 Blood Gas Respiration Rate 20.0 Blood Gas Actual Respiration Rate 21 Blood Gas Modality VENT - AC FiO2 60.0 Blood Gas Tidal Volume 550.0 Blood Gas Low PEEP Setting 5.0 Blood Gas Notified Whom K B Blood Gas Notified Time 06/02/2016 8:01:52 AM Medications Current Medications Morphine Sulfate (morphine) 2 mg Q4H PRN IV PAIN LEVEL 7-10; Start 05/30/16 at 22:30 Ondansetron HCl (Zofran Inj) 4 mg Q6H PRN IV NAUSEA AND/OR VOMITING; Start at 22:30 Heparin Sodium (Porcine) (Heparin (5000 Units/0.5 ml)) 5,000 unit BID SC Last administered on 06/02/16 09:09; Admin Dose 5,000 UNIT; Start 05/30/16 at 22:30 Amiodarone HCl (Cordarone) 200 mg BID PO Last administered on 06/01/16 20:46; Admin Dose 200 MG; Start 05/30/16 at 22:30 Atorvastatin Calcium (Lipitor) 20 mg QHS PO Last administered on 06/01/16 20: 45; Admin Dose 20 MG; Start 05/31/16 at 21:00 Clopidogrel Bisulfate (plaVIX) 75 mg DAILY PO Last administered on 06/02/16 09 :03; Admin Dose 75 MG; Start 05/31/16 at 09:00 Furosemide (Lasix) 40 mg DAILY@06 PO Last administered on 06/02/16 05:52; Admin Dose 40 MG; Start 05/31/16 at 06:00 Losartan Potassium (Cozaar) 25 mg DAILY PO Last administered on 05/31/16 08:51 ; Admin Dose 25 MG; Start 05/31/16 at 09:00; Status Future Hold Nitroglycerin (Nitroglycerin (Sl Tab) 0.4 Mg) 1 tab PRN PRN SL CHEST PAIN; Start 05/30/16 at 22:30 Potassium Chloride 10 meq 10 meq AM PO Last administered on 06/02/16 09:06; Admin Dose 10 MEQ; Start 05/31/16 at 09:00 Levofloxacin/ Dextrose (Levaquin 500mg/ D5W 100 ml (Pmx)) 100 ml @ 100 mls/hr Q24H IVPB Last administered on 06/02/16 05:51; Admin Dose 100 MLS/HR; Start at 06:00 Magnesium Hydroxide (Milk Of Mag) 30 ml DAILY PRN PO CONSTIPATION; Start at 07:00 Aspirin (Halfprin) 81 mg DAILY PO Last administered on 06/02/16 09:02; Admin Dose 81 MG; Start 05/31/16 at 09:00 Methylprednisolone Sodium Succinate 80 mg 80 mg Q6 IV Last administered on 06/02 05:51; Admin Dose 80 MG; Start 05/31/16 at 18:00 Midazolam HCl (Versed) 50 ml @ 1 mls/hr TITRATE IV Last administered on 07:06; Admin Dose 10 MLS/HR; Start 05/31/16 at 16:00 Carvedilol 6.25 mg 6.25 mg BID PO Last administered on 06/01/16 20:46; Admin Dose 6.25 MG; Start 05/31/16 at 21:00 Norepinephrine/ Dextrose (Levophed/D5W) 500 ml @ 1.87 mls/hr TITRATE IV Last administered on 05/31/16 19:57; Admin Dose 5.62 MLS/HR; Start 05/31/16 at 19:00 Lorazepam 2 mg 2 mg Q6H PRN IV ANXIETY Last administered on 06/01/16 07:55; Admin Dose 2 MG; Start 05/31/16 at 23:30 Propofol (Diprivan) 100 ml @ 2.964 mls/ hr Q12H IV Last administered on 4/27/ 17at 22:34; Admin Dose 5.928 MLS/HR; Start 06/01/16 at 09:30 IV Flush (NS 10 ml) 10 ml PRN PRN IV IV PROTOCOL; Start 06/01/16 at 13:30 Assessment/Plan Chief Complaint/Hosp Course IMPRESSION AND PLAN: 1. Pulmonary edema. 2. History of polysubstance abuse. 3. History of coronary artery disease. 4. Acute Hypoxemic respiratory failure with evidence of chronic hypercapnic respiratory failure The patient will require 1. Continued antibiotics. 2. Continue bronchodilators. 3. Continue supplemental O2. CPAP weaning trial this morning 4. Continue steroids. 5. DVT and GI prophylaxis. Critical care time 40 minutes. Problems: LAST DOE MD, [facility] Jun 02, 2016 10:42
[2016-06-02] MEDS: PROPOFOL 100 ML IV SCH ×2 (11:30→12:44)
--- NOTE | 2016-06-02 12:18 | CONS ---
Date/Time of Note Date/Time of Note DATE: 06/02/16 TIME: 12:15 Assessment/Plan Assessment/Plan Chief Complaint/Hosp Course IMPRESSION: 1. Atrial fibrillation-some mild RVR 2. Abnormal electrocardiogram, assess for acute coronary syndrome.-negative troponin x 3 3. Respiratory failure, assess for congestive heart failure. 4. History of percutaneous transluminal coronary angioplasty and stent placement 1 week prior at [facility] on aspirin and Plavix. 5. Hypotension. 6. Probable chronic obstructive pulmonary disease by history and chest x-ray findings. 7. Hyponatremia-improved 8. Respiratory acidosis. Recc: -Tele -serial ecg -Continue coreg as tolerated and will decrease dose to allow him to better tolerate -Continue amio -Continue asa/plavix/SQ heparin q8 -Continue abx's -F/U cx data Problems: Consultation Date/Type/Reason Admit Date/Time May 30, 2016 at 20:05 Initial Consult Date 05/31/16 Type of Consultation: Cardiology Reason for Consultation AF Referring Provider: BERNARDO PULIDO MD Exam/Review of Systems Vital Signs Vitals Vital Signs Date Time Temp Pulse Resp B/P Pulse Ox O2 Delivery O2 Flow Rate FiO2 06/02/16 10:00 111 49 144/83 94 Mechanical Ventilator 06/02/16 09:51 60 06/02/16 07:30 98.0 05/31/16 11:30 5.0 Intake and Output 06/01/16 06/01/16 06/02/16 15:00 23:00 07:00 Intake Total 229.608 ml 467.400 ml 577.424 ml Output Total 310 ml 460 ml 770 ml Balance -80.392 ml 7.400 ml -192.576 ml Exam Review of Systems: CONSTITUTIONAL: No fevers, chills. PULMONARY: No sob CARDIOVASCULAR: No chest pain/palpitations GASTROINTESTINAL: No nausea/vomiting. GENITOURINARY: No hematuria/dysuria. MUSCULOSKELETAL: No myagias/arthalgias. PSYCHIATRIC: The patient denies depression. NEUROLOGIC: No weakness Constitutional: other (sedated) Psych: no complaints ENMT: intubated Neck: jvd (9 cm water), supple Respiratory: other (upper airway rhoncherous sounds) Cardiovascular: regular rate and rhythm Gastrointestinal: non-tender, soft Musculoskeletal: muscle tone (normal) Extremities: edema (none) Neurological: other (No focal deficits) Results Result Diagram: 06/02/16 0453 06/02/16 0453 Results 24 hrs Laboratory Tests Test 06/02/16 04:53 06/02/16 07:00 White Blood Count 8.6 # Red Blood Count 4.14 L Hemoglobin 13.2 L Hematocrit 41.8 L Mean Corpuscular Volume 101.0 Mean Corpuscular Hemoglobin 31.9 Mean Corpuscular Hemoglobin Concent 31.6 L Red Cell Distribution Width 15.3 H Platelet Count 118 L Mean Platelet Volume 12.0 H Neutrophils % 86.6 H Lymphocytes % 8.3 L Monocytes % 4.4 Eosinophils % 0.0 Basophils % 0.1 Nucleated Red Blood Cells % 0.0 Neutrophils # 7.5 Lymphocytes # 0.7 L Monocytes # 0.4 Eosinophils # 0.0 Basophils # 0.0 Nucleated Red Blood Cells # 0.0 Sodium Level 136 Potassium Level 4.9 Chloride Level 98 Carbon Dioxide Level 35 H Anion Gap 8 Blood Urea Nitrogen 23 H Creatinine 0.59 L Glucose Level 141 Calcium Level 8.7 Phosphorus Level 3.4 # Magnesium Level 2.6 H Blood Gas Specimen Source Blood arterial Arterial Blood Date Drawn 06/02/2016 7:20:06 AM Arterial Blood pH (Temp corrected) 7.316 L Arterial Blood pCO2 (Temp correct) 65.3 H Arterial Blood pO2 (Temp corrected) 103.7 H Arterial Blood HCO3 32.6 H Arterial Blood Base Excess 4.2 H Arterial Blood Oxygen Saturation 97.6 Jayro Test ACCEPTAB Arterial Blood Gas Puncture Site Left Radial Arterial Blood Carboxyhemoglobin 0.3 Arterial Blood Methemoglobin 0.4 Blood Gas A-a O2 Differential 252.3 H Oxyhemoglobin Percent 96.9 Total Hemoglobin 14.9 Blood Gas Temperature 37.0 Blood Gas Respiration Rate 20.0 Blood Gas Actual Respiration Rate 21 Blood Gas Modality VENT - AC FiO2 60.0 Blood Gas Tidal Volume 550.0 Blood Gas Low PEEP Setting 5.0 Blood Gas Notified Whom K B Blood Gas Notified Time 06/02/2016 8:01:52 AM Medications Medications Current Medications Morphine Sulfate (morphine) 2 mg Q4H PRN IV PAIN LEVEL 7-10; Start 05/30/16 at 22:30 Ondansetron HCl (Zofran Inj) 4 mg Q6H PRN IV NAUSEA AND/OR VOMITING; Start at 22:30 Heparin Sodium (Porcine) (Heparin (5000 Units/0.5 ml)) 5,000 unit BID SC Last administered on 06/02/16 09:09; Admin Dose 5,000 UNIT; Start 05/30/16 at 22:30 Amiodarone HCl (Cordarone) 200 mg BID PO Last administered on 06/01/16 20:46; Admin Dose 200 MG; Start 05/30/16 at 22:30 Atorvastatin Calcium (Lipitor) 20 mg QHS PO Last administered on 06/01/16 20: 45; Admin Dose 20 MG; Start 05/31/16 at 21:00 Clopidogrel Bisulfate (plaVIX) 75 mg DAILY PO Last administered on 06/02/16 09 :03; Admin Dose 75 MG; Start 05/31/16 at 09:00 Furosemide (Lasix) 40 mg DAILY@06 PO Last administered on 06/02/16 05:52; Admin Dose 40 MG; Start 05/31/16 at 06:00 Losartan Potassium (Cozaar) 25 mg DAILY PO Last administered on 05/31/16 08:51 ; Admin Dose 25 MG; Start 05/31/16 at 09:00; Status Future Hold Nitroglycerin (Nitroglycerin (Sl Tab) 0.4 Mg) 1 tab PRN PRN SL CHEST PAIN; Start 05/30/16 at 22:30 Potassium Chloride 10 meq 10 meq AM PO Last administered on 06/02/16 09:06; Admin Dose 10 MEQ; Start 05/31/16 at 09:00 Levofloxacin/ Dextrose (Levaquin 500mg/ D5W 100 ml (Pmx)) 100 ml @ 100 mls/hr Q24H IVPB Last administered on 06/02/16 05:51; Admin Dose 100 MLS/HR; Start at 06:00 Magnesium Hydroxide (Milk Of Mag) 30 ml DAILY PRN PO CONSTIPATION; Start at 07:00 Aspirin (Halfprin) 81 mg DAILY PO Last administered on 06/02/16 09:02; Admin Dose 81 MG; Start 05/31/16 at 09:00 Methylprednisolone Sodium Succinate 80 mg 80 mg Q6 IV Last administered on 06/02 05:51; Admin Dose 80 MG; Start 05/31/16 at 18:00 Midazolam HCl (Versed) 50 ml @ 1 mls/hr TITRATE IV Last administered on 07:06; Admin Dose 10 MLS/HR; Start 05/31/16 at 16:00 Carvedilol 6.25 mg 6.25 mg BID PO Last administered on 06/01/16 20:46; Admin Dose 6.25 MG; Start 05/31/16 at 21:00 Norepinephrine/ Dextrose (Levophed/D5W) 500 ml @ 1.87 mls/hr TITRATE IV Last administered on 05/31/16 19:57; Admin Dose 5.62 MLS/HR; Start 05/31/16 at 19:00 Lorazepam 2 mg 2 mg Q6H PRN IV ANXIETY Last administered on 06/01/16 07:55; Admin Dose 2 MG; Start 05/31/16 at 23:30 Propofol (Diprivan) 100 ml @ 2.964 mls/ hr Q12H IV Last administered on 22:34; Admin Dose 5.928 MLS/HR; Start 06/01/16 at 09:30 IV Flush (NS 10 ml) 10 ml PRN PRN IV IV PROTOCOL; Start 06/01/16 at 13:30 MIGUEL ANGEL GAONA Jun 02, 2016 12:18
[2016-06-02] MEDS: DIGOXIN 500 MCG INJ IV SCH ×2 (12:44→18:41)
--- NOTE | 2016-06-02 14:23 | PN ---
Date/Time of Note Date/Time of Note DATE: 06/02/16 TIME: 14:18 Assessment/Plan VTE Prophylaxis VTE Prophylaxis Intervention: heparin Lines/Catheters IV Catheter Type (from [facility]): PICC Line Central line still needed: Yes Urinary Cath still in place: Yes Reason Cath still needed: other (indicate) (monitor I&O) Assessment/Plan Chief Complaint/Hosp Course Assessment and plan 1. Acute respiratory failure. Multifactorial: CHF/COPD exacerbation/possible pneumonia. Meat Washer and locomotive firer/fireman following.. Continue diuretic therapy. On bronchodilators. Recent chest x-ray did show stable patchy right lower lobe infiltrates. Continue pulmonary hygiene. Continue with locomotive firer/fireman recommendations.monitor for ability to wean off vent 2. History of CAD status post stent placement a week ago. Meat Washer following. Monitor troponin. Continue statin and aspirin. 3. Reported arrhythmia with atrial fibrillation. continue amiodarone and telemetry monitoring. stable at present 4. History of CHF. Continue diuretic therapy. 5. Suspect pneumonia. cont on abx Disposition and plan: cont vent weaning as tolerated per pulm. cont icu monitoring Discussed plan of care with Dr. Reyes Critical Care time: 30 minutes Problems: Subjective 24 Hr Interval Summary Free Text/Dictation still intubated and sedated. no s/s of distress Exam/Review of Systems Vital Signs Vitals Vital Signs Date Time Temp Pulse Resp B/P Pulse Ox O2 Delivery O2 Flow Rate FiO2 06/02/16 11:30 50 06/02/16 11:10 117 31 92 06/02/16 10:00 144/83 Mechanical Ventilator 06/02/16 07:30 98.0 05/31/16 11:30 5.0 Intake and Output 06/01/16 06/01/16 06/02/16 15:00 23:00 07:00 Intake Total 229.608 ml 467.400 ml 577.424 ml Output Total 310 ml 460 ml 770 ml Balance -80.392 ml 7.400 ml -192.576 ml Exam Constitutional: other (intubated and sedated ), no s/s of distress Head: normocephalic Respiratory: crackles/rales, diminished breath sounds Cardiovascular: other (regular rate ) Gastrointestinal: other (soft, minimally protuberant) Extremities: edema (BLE , BUE ) Neurological: other (intubated and sedated ) Results Result Diagram: 06/02/16 0453 06/02/16 0453 Results 24 hrs Laboratory Tests Test 06/02/16 04:53 06/02/16 07:00 White Blood Count 8.6 # Red Blood Count 4.14 L Hemoglobin 13.2 L Hematocrit 41.8 L Mean Corpuscular Volume 101.0 Mean Corpuscular Hemoglobin 31.9 Mean Corpuscular Hemoglobin Concent 31.6 L Red Cell Distribution Width 15.3 H Platelet Count 118 L Mean Platelet Volume 12.0 H Neutrophils % 86.6 H Lymphocytes % 8.3 L Monocytes % 4.4 Eosinophils % 0.0 Basophils % 0.1 Nucleated Red Blood Cells % 0.0 Neutrophils # 7.5 Lymphocytes # 0.7 L Monocytes # 0.4 Eosinophils # 0.0 Basophils # 0.0 Nucleated Red Blood Cells # 0.0 Sodium Level 136 Potassium Level 4.9 Chloride Level 98 Carbon Dioxide Level 35 H Anion Gap 8 Blood Urea Nitrogen 23 H Creatinine 0.59 L Glucose Level 141 Calcium Level 8.7 Phosphorus Level 3.4 # Magnesium Level 2.6 H Blood Gas Specimen Source Blood arterial Arterial Blood Date Drawn 06/02/2016 7:20:06 AM Arterial Blood pH (Temp corrected) 7.316 L Arterial Blood pCO2 (Temp correct) 65.3 H Arterial Blood pO2 (Temp corrected) 103.7 H Arterial Blood HCO3 32.6 H Arterial Blood Base Excess 4.2 H Arterial Blood Oxygen Saturation 97.6 Jayro Test ACCEPTAB Arterial Blood Gas Puncture Site Left Radial Arterial Blood Carboxyhemoglobin 0.3 Arterial Blood Methemoglobin 0.4 Blood Gas A-a O2 Differential 252.3 H Oxyhemoglobin Percent 96.9 Total Hemoglobin 14.9 Blood Gas Temperature 37.0 Blood Gas Respiration Rate 20.0 Blood Gas Actual Respiration Rate 21 Blood Gas Modality VENT - AC FiO2 60.0 Blood Gas Tidal Volume 550.0 Blood Gas Low PEEP Setting 5.0 Blood Gas Notified Whom K B Blood Gas Notified Time 06/02/2016 8:01:52 AM Medications Medications Current Medications Morphine Sulfate (morphine) 2 mg Q4H PRN IV PAIN LEVEL 7-10; Start 05/30/16 at 22:30 Ondansetron HCl (Zofran Inj) 4 mg Q6H PRN IV NAUSEA AND/OR VOMITING; Start at 22:30 Heparin Sodium (Porcine) (Heparin (5000 Units/0.5 ml)) 5,000 unit BID SC Last administered on 06/02/16 09:09; Admin Dose 5,000 UNIT; Start 05/30/16 at 22:30 Amiodarone HCl (Cordarone) 200 mg BID PO Last administered on 06/01/16 20:46; Admin Dose 200 MG; Start 05/30/16 at 22:30 Atorvastatin Calcium (Lipitor) 20 mg QHS PO Last administered on 06/01/16 20: 45; Admin Dose 20 MG; Start 05/31/16 at 21:00 Clopidogrel Bisulfate (plaVIX) 75 mg DAILY PO Last administered on 06/02/16 09 :03; Admin Dose 75 MG; Start 05/31/16 at 09:00 Furosemide (Lasix) 40 mg DAILY@06 PO Last administered on 06/02/16 05:52; Admin Dose 40 MG; Start 05/31/16 at 06:00 Losartan Potassium (Cozaar) 25 mg DAILY PO Last administered on 05/31/16 08:51 ; Admin Dose 25 MG; Start 05/31/16 at 09:00; Status Future Hold Nitroglycerin (Nitroglycerin (Sl Tab) 0.4 Mg) 1 tab PRN PRN SL CHEST PAIN; Start 05/30/16 at 22:30 Potassium Chloride 10 meq 10 meq AM PO Last administered on 06/02/16 09:06; Admin Dose 10 MEQ; Start 05/31/16 at 09:00 Levofloxacin/ Dextrose (Levaquin 500mg/ D5W 100 ml (Pmx)) 100 ml @ 100 mls/hr Q24H IVPB Last administered on 06/02/16 05:51; Admin Dose 100 MLS/HR; Start at 06:00 Magnesium Hydroxide (Milk Of Mag) 30 ml DAILY PRN PO CONSTIPATION; Start at 07:00 Aspirin (Halfprin) 81 mg DAILY PO Last administered on 06/02/16 09:02; Admin Dose 81 MG; Start 05/31/16 at 09:00 Methylprednisolone Sodium Succinate 80 mg 80 mg Q6 IV Last administered on 06/02 12:43; Admin Dose 80 MG; Start 05/31/16 at 18:00 Midazolam HCl 50 ml @ 1 mls/hr TITRATE IV Last administered on 06/02/16 11:30 ; Admin Dose 5 MLS/HR; Start 05/31/16 at 16:00 Norepinephrine/ Dextrose (Levophed/D5W) 500 ml @ 1.87 mls/hr TITRATE IV Last administered on 05/31/16 19:57; Admin Dose 5.62 MLS/HR; Start 05/31/16 at 19:00 Lorazepam 2 mg 2 mg Q6H PRN IV ANXIETY Last administered on 06/01/16 07:55; Admin Dose 2 MG; Start 05/31/16 at 23:30 Propofol (Diprivan) 100 ml @ 2.964 mls/ hr Q12H IV Last administered on 11:30; Admin Dose 5.928 MLS/HR; Start 06/01/16 at 09:30 IV Flush (NS 10 ml) 10 ml PRN PRN IV IV PROTOCOL; Start 06/01/16 at 13:30 Carvedilol (Coreg) 3.125 mg BID PO ; Start 06/02/16 at 21:00 Digoxin (Digoxin) 250 mcg Q6H IV Last administered on 06/02/16 12:44; Admin Dose 250 MCG; Start 06/02/16 at 12:30; Stop 06/02/16 at 18:31 MICHAEL BURCIAGA Jun 02, 2016 14:23
[2016-06-02 15:39] LABS: HEMATOCRIT 44.3 % (42.0-52.0); HEMOGLOBIN 13.8 g/dl (14.0-18.0)
[2016-06-02 15:42] LABS: INR 1.01; PROTIME 13.3 Sec (12.2-14.2)
[2016-06-02 15:43] LABS: PARTIAL THROMBOPLASTIN TIME 52.4 Sec (25.0-35.0)
[2016-06-02] MEDS: ATORVASTATIN 20 MG TAB PO SCH (20:45)
[2016-06-03] VITALS (51 sets, daily range): BP systolic 96–127; BP diastolic 60–97; PULSE 72–104; RESP 19–29
[2016-06-03] MEDS: METHYLPREDNISOLONE 125 MG INJ IV SCH ×4 (00:44→17:51)
[2016-06-03] MEDS: ALBUTEROL 18 GM INHALER INH SCH ×4 (01:10→13:07)
[2016-06-03] MEDS: IPRATROPIUM (HFA) 12.9 GM INHALER INH SCH ×4 (01:10→13:07)
[2016-06-03] MEDS: PROPOFOL 100 ML IV SCH ×3 (02:27→22:19)
[2016-06-03 05:04] LABS: ADD SCAN DIFF NO
[2016-06-03 05:16] LABS: HEMATOCRIT 43.7 % (42.0-52.0); HEMOGLOBIN 13.6 g/dl (14.0-18.0); MEAN CORPUSCULAR HEMOGLOBIN 31.1 pg (29.0-33.0); MEAN CORPUSCULAR HGB CONC 31.1 g/dl (32.0-37.0); MEAN PLATELET VOLUME 12.3 fl (7.4-10.4); PLATELET COUNT 129 10^3/UL (140-415); RED BLOOD COUNT 4.37 10^6/ul (4.70-6.10); RED CELL DISTRIBUTION WIDTH 15.8 % (11.5-14.5); WHITE BLOOD COUNT 11.2 10^3/ul (4.8-10.8)
[2016-06-03 05:18] LABS: POTASSIUM 4.3 mmol/L (3.5-5.1)
[2016-06-03 05:20] LABS: CREATININE 0.64 mg/dl (0.61-1.24)
[2016-06-03 05:21] LABS: CALCIUM 8.6 mg/dl (8.4-10.2); MAGNESIUM 2.3 mg/dl (1.7-2.5); PHOSPHORUS 3.3 mg/dl (2.5-4.9)
[2016-06-03] MEDS: LEVOFLOXACIN 500MG/D5W (PMX) 100 ML IVPB SCH (05:29)
[2016-06-03] MEDS: MIDAZOLAM (DRIP) 50 mg/50 mL 50 ML IV SCH ×3 (05:29→20:46)
[2016-06-03] MEDS: FUROSEMIDE 40 MG TAB PO SCH (05:34)
--- NOTE | 2016-06-03 09:23 | CONS ---
Date/Time of Note Date/Time of Note DATE: 06/03/16 TIME: 09:21 Assessment/Plan Assessment/Plan Additional Assessment/Plan Ventilator settings; AC of 20, tidal volume 550, PEEP of 5, 60% FiO2. Assessment recommendations; 1. Patient admitted for severe COPD exacerbation and acute bronchitis leading to respiratory failure. 2. History of hypertension, poorly artery disease. 3. Hypercapnic respiratory failure likely acute on chronic. 4. Likely underlying sleep apnea. Continue current supportive care. Continue current ventilator settings, antibiotics and other supportive measures. Continue Solu-Medrol at current dosing. Obtain ABG. Further recommendations will be made once ABGs done. Consultation Date/Type/Reason Admit Date/Time May 30, 2016 at 20:05 Initial Consult Date 05/31/16 Type of Consultation: Pulmonary/critical care Referring Provider: BERNARDO PULIDO MD 24 HR Interval Summary Free Text/Dictation Patient condition remains critical. Still requiring full ventilator support. Patient however has remained hemodynamically stable. General exam; elderly male, orally intubated, sedated, currently in no distress. Exam/Review of Systems Vital Signs Vitals Vital Signs Date Time Temp Pulse Resp B/P Pulse Ox O2 Delivery O2 Flow Rate FiO2 06/03/16 08:00 60 06/03/16 08:00 98.0 82 20 113/78 93 Mechanical Ventilator 05/31/16 11:30 5.0 Intake and Output 06/02/16 06/02/16 06/03/16 15:00 23:00 07:00 Intake Total 408.532 ml 481.136 ml 537.244 ml Output Total 940 ml 665 ml 550 ml Balance -531.468 ml -183.864 ml -12.756 ml Exam HEENT exam is; supple neck, no JVD. No lymphadenopathy. Midline trachea. Orally intubated. Patient has few remaining teeth. Pupils are midsize, reactive to light. No neck masses. No thyromegaly. Chest examination; diminished but clear breath sounds bilaterally. No added sound. S1-S2 audible, no murmurs. Regular rhythm. Abdomen examination; soft, nondistended. No organomegaly. Bowel sounds audible. Extremity examination; no peripheral edema. Pulses 1+ bilaterally. PRESSURE SEALER AND TESTER examination; patient is sedated. Results Result Diagram: 06/03/16 0500 06/03/16 0500 Results 24 hrs Laboratory Tests Test 06/02/16 14:50 06/03/16 05:00 Hemoglobin 13.8 L 13.6 L Hematocrit 44.3 43.7 Platelet Count 133 L 129 L Prothrombin Time 13.3 Prothrombin Time Ratio 1.0 INR International Normalized Ratio 1.01 Activated Partial Thromboplast Time 52.4 H Thrombin Time 19.0 White Blood Count 11.2 #H Red Blood Count 4.37 L Mean Corpuscular Volume 100.0 Mean Corpuscular Hemoglobin 31.1 Mean Corpuscular Hemoglobin Concent 31.1 L Red Cell Distribution Width 15.8 H Mean Platelet Volume 12.3 H Neutrophils % Lymphocytes % Monocytes % Neutrophils # Lymphocytes # Monocytes # Sodium Level 141 Potassium Level 4.3 Chloride Level 97 Carbon Dioxide Level 37 H Anion Gap 11 Blood Urea Nitrogen 26 H Creatinine 0.64 Glucose Level 149 Calcium Level 8.6 Phosphorus Level 3.3 Magnesium Level 2.3 Medications Medications Current Medications Morphine Sulfate (morphine) 2 mg Q4H PRN IV PAIN LEVEL 7-10; Start 05/30/16 at 22:30 Ondansetron HCl (Zofran Inj) 4 mg Q6H PRN IV NAUSEA AND/OR VOMITING; Start at 22:30 Amiodarone HCl (Cordarone) 200 mg BID PO Last administered on 06/02/16 20:45; Admin Dose 200 MG; Start 05/30/16 at 22:30 Atorvastatin Calcium (Lipitor) 20 mg QHS PO Last administered on 06/02/16 20: 45; Admin Dose 20 MG; Start 05/31/16 at 21:00 Clopidogrel Bisulfate (plaVIX) 75 mg DAILY PO Last administered on 06/02/16 09 :03; Admin Dose 75 MG; Start 05/31/16 at 09:00 Furosemide (Lasix) 40 mg DAILY@06 PO Last administered on 06/03/16 05:34; Admin Dose 40 MG; Start 05/31/16 at 06:00 Losartan Potassium (Cozaar) 25 mg DAILY PO Last administered on 05/31/16 08:51 ; Admin Dose 25 MG; Start 05/31/16 at 09:00; Status Future Hold Nitroglycerin (Nitroglycerin (Sl Tab) 0.4 Mg) 1 tab PRN PRN SL CHEST PAIN; Start 05/30/16 at 22:30 Potassium Chloride 10 meq 10 meq AM PO Last administered on 06/02/16 09:06; Admin Dose 10 MEQ; Start 05/31/16 at 09:00 Levofloxacin/ Dextrose (Levaquin 500mg/ D5W 100 ml (Pmx)) 100 ml @ 100 mls/hr Q24H IVPB Last administered on 06/03/16 05:29; Admin Dose 100 MLS/HR; Start at 06:00 Magnesium Hydroxide (Milk Of Mag) 30 ml DAILY PRN PO CONSTIPATION; Start at 07:00 Aspirin (Halfprin) 81 mg DAILY PO Last administered on 06/02/16 09:02; Admin Dose 81 MG; Start 05/31/16 at 09:00 Methylprednisolone Sodium Succinate 80 mg 80 mg Q6 IV Last administered on 06/03 05:29; Admin Dose 80 MG; Start 05/31/16 at 18:00 Midazolam HCl 50 ml @ 1 mls/hr TITRATE IV Last administered on 06/03/16 05:29 ; Admin Dose 5 MLS/HR; Start 05/31/16 at 16:00 Norepinephrine/ Dextrose (Levophed/D5W) 500 ml @ 1.87 mls/hr TITRATE IV Last administered on 05/31/16 19:57; Admin Dose 5.62 MLS/HR; Start 05/31/16 at 19:00 Lorazepam 2 mg 2 mg Q6H PRN IV ANXIETY Last administered on 06/01/16 07:55; Admin Dose 2 MG; Start 05/31/16 at 23:30 Propofol (Diprivan) 100 ml @ 2.964 mls/ hr Q12H IV Last administered on 02:27; Admin Dose 8.892 MLS/HR; Start 06/01/16 at 09:30 IV Flush (NS 10 ml) 10 ml PRN PRN IV IV PROTOCOL; Start 06/01/16 at 13:30 Carvedilol (Coreg) 3.125 mg BID PO ; Start 06/02/16 at 21:00 JOSE GILLIS Jun 03, 2016 09:23
[2016-06-03] MEDS: ASPIRIN (EC) 81 MG TAB PO SCH (09:34)
[2016-06-03] MEDS: POTASSIUM CHLORIDE (SR) 10 MEQ TAB PO SCH (09:35)
[2016-06-03] MEDS: CLOPIDOGREL 75 MG TAB PO SCH (09:35)
[2016-06-03] MEDS: AMIODARONE 200 MG TAB PO SCH ×2 (09:36→20:45)
[2016-06-03 09:49] LABS: LYMPHOCYTES # 0.6 10^3/ul (0.8-2.9); MONOCYTE # 0.2 10^3/ul (0.3-0.9); NEUTROPHIL # 10.2 10^3/ul (1.6-7.5)
[2016-06-03 09:50] LABS: PLATELET ESTIMATE PLT APPEAR DECREASED
--- NOTE | 2016-06-03 10:50 | CONS ---
Date/Time of Note Date/Time of Note DATE: 06/03/16 TIME: 10:41 Assessment/Plan Assessment/Plan Chief Complaint/Hosp Course IMPRESSION: 1. Atrial fibrillation-Rate controlled 2. Abnormal electrocardiogram, assess for acute coronary syndrome.-negative troponin x 3 3. Respiratory failure, assess for congestive heart failure. 4. History of percutaneous transluminal coronary angioplasty and stent placement 1 week prior at [facility] on aspirin and Plavix. 5. Hypotension. 6. Probable chronic obstructive pulmonary disease by history and chest x-ray findings. 7. Hyponatremia-improved 8. Respiratory acidosis. Recc: -Tele -serial ecg -Continue coreg as tolerated and will decrease dose to allow him to better tolerate -Continue amio -Continue asa/plavix/SQ heparin q8 -Continue abx's -F/U cx data Problems: Consultation Date/Type/Reason Admit Date/Time May 30, 2016 at 20:05 Initial Consult Date 05/31/16 Type of Consultation: Cardiology Reason for Consultation AF Referring Provider: BERNARDO PULIDO MD Exam/Review of Systems Vital Signs Vitals Vital Signs Date Time Temp Pulse Resp B/P Pulse Ox O2 Delivery O2 Flow Rate FiO2 06/03/16 10:00 72 20 102/71 93 Mechanical Ventilator 06/03/16 08:00 60 06/03/16 08:00 98.0 05/31/16 11:30 5.0 Intake and Output 06/02/16 06/02/16 06/03/16 15:00 23:00 07:00 Intake Total 408.532 ml 481.136 ml 537.244 ml Output Total 940 ml 665 ml 550 ml Balance -531.468 ml -183.864 ml -12.756 ml Exam Review of Systems: CONSTITUTIONAL: No fevers, chills. PULMONARY: No sob CARDIOVASCULAR: No chest pain/palpitations GASTROINTESTINAL: No nausea/vomiting. GENITOURINARY: No hematuria/dysuria. MUSCULOSKELETAL: No myagias/arthalgias. PSYCHIATRIC: The patient denies depression. NEUROLOGIC: No weakness Constitutional: alert, oriented Head: normocephalic ENMT: mucosa pink and moist Neck: jvd, supple Respiratory: diminished breath sounds (at bases/B) Cardiovascular: regular rate and rhythm Gastrointestinal: non-tender, soft Musculoskeletal: muscle tone (normal) Extremities: edema (none) Neurological: other (No focal deficits) Results Result Diagram: 06/03/16 0500 06/03/16 0500 Results 24 hrs Laboratory Tests Test 06/02/16 14:50 06/03/16 05:00 Hemoglobin 13.8 L 13.6 L Hematocrit 44.3 43.7 Platelet Count 133 L 129 L Prothrombin Time 13.3 Prothrombin Time Ratio 1.0 INR International Normalized Ratio 1.01 Activated Partial Thromboplast Time 52.4 H Thrombin Time 19.0 White Blood Count 11.2 #H Red Blood Count 4.37 L Mean Corpuscular Volume 100.0 Mean Corpuscular Hemoglobin 31.1 Mean Corpuscular Hemoglobin Concent 31.1 L Red Cell Distribution Width 15.8 H Mean Platelet Volume 12.3 H Neutrophils % 91.0 H Band Neutrophils % 2.0 Lymphocytes % 5.0 L Monocytes % 2.0 Neutrophils # 10.2 H Lymphocytes # 0.6 L Monocytes # 0.2 L Platelet Estimate PLT APPEAR DECREASED Large Platelets FEW Sodium Level 141 Potassium Level 4.3 Chloride Level 97 Carbon Dioxide Level 37 H Anion Gap 11 Blood Urea Nitrogen 26 H Creatinine 0.64 Glucose Level 149 Calcium Level 8.6 Phosphorus Level 3.3 Magnesium Level 2.3 Medications Medications Current Medications Morphine Sulfate (morphine) 2 mg Q4H PRN IV PAIN LEVEL 7-10; Start 05/30/16 at 22:30 Ondansetron HCl (Zofran Inj) 4 mg Q6H PRN IV NAUSEA AND/OR VOMITING; Start at 22:30 Amiodarone HCl (Cordarone) 200 mg BID PO Last administered on 06/03/16 09:36; Admin Dose 200 MG; Start 05/30/16 at 22:30 Atorvastatin Calcium (Lipitor) 20 mg QHS PO Last administered on 06/02/16 20: 45; Admin Dose 20 MG; Start 05/31/16 at 21:00 Clopidogrel Bisulfate (plaVIX) 75 mg DAILY PO Last administered on 06/03/16 09 :35; Admin Dose 75 MG; Start 05/31/16 at 09:00 Furosemide (Lasix) 40 mg DAILY@06 PO Last administered on 06/03/16 05:34; Admin Dose 40 MG; Start 05/31/16 at 06:00 Losartan Potassium (Cozaar) 25 mg DAILY PO Last administered on 05/31/16 08:51 ; Admin Dose 25 MG; Start 05/31/16 at 09:00; Status Future Hold Nitroglycerin (Nitroglycerin (Sl Tab) 0.4 Mg) 1 tab PRN PRN SL CHEST PAIN; Start 05/30/16 at 22:30 Potassium Chloride 10 meq 10 meq AM PO Last administered on 06/03/16 09:35; Admin Dose 10 MEQ; Start 05/31/16 at 09:00 Levofloxacin/ Dextrose (Levaquin 500mg/ D5W 100 ml (Pmx)) 100 ml @ 100 mls/hr Q24H IVPB Last administered on 06/03/16 05:29; Admin Dose 100 MLS/HR; Start at 06:00 Magnesium Hydroxide (Milk Of Mag) 30 ml DAILY PRN PO CONSTIPATION; Start at 07:00 Aspirin (Halfprin) 81 mg DAILY PO Last administered on 06/03/16 09:34; Admin Dose 81 MG; Start 05/31/16 at 09:00 Methylprednisolone Sodium Succinate 80 mg 80 mg Q6 IV Last administered on 06/03 05:29; Admin Dose 80 MG; Start 05/31/16 at 18:00 Midazolam HCl 50 ml @ 1 mls/hr TITRATE IV Last administered on 06/03/16 05:29 ; Admin Dose 5 MLS/HR; Start 05/31/16 at 16:00 Norepinephrine/ Dextrose (Levophed/D5W) 500 ml @ 1.87 mls/hr TITRATE IV Last administered on 05/31/16 19:57; Admin Dose 5.62 MLS/HR; Start 05/31/16 at 19:00 Lorazepam 2 mg 2 mg Q6H PRN IV ANXIETY Last administered on 06/01/16 07:55; Admin Dose 2 MG; Start 05/31/16 at 23:30 Propofol (Diprivan) 100 ml @ 2.964 mls/ hr Q12H IV Last administered on 02:27; Admin Dose 8.892 MLS/HR; Start 06/01/16 at 09:30 IV Flush (NS 10 ml) 10 ml PRN PRN IV IV PROTOCOL; Start 06/01/16 at 13:30 Carvedilol (Coreg) 3.125 mg BID PO Last administered on 06/03/16t 09:36; Admin Dose 3.125 MG; Start 06/02/16 at 21:00 MIGUEL ANGEL GAONA Jun 03, 2016 10:50
[2016-06-03 11:29] LABS: AADO2 Arterial 296.4 mmHg (7.0-24.0); Allen Test ACCEPTAB; Arterial Base Excess 9.7 mmol/L (-3.0-3); Arterial COHb 0.2 % (0.0-3.0); Arterial Fraction of Oxyhgb 92.7 % (93.0-99.0); Arterial HCO3 36.8 mmol/L (22.0-26.0); Arterial MetHb 0.2 % (0.0-1.5); Arterial Total Hemglobin 15.3 g/dl (12.0-18.0); MODE VENT - AC
--- NOTE | 2016-06-03 13:17 | PN ---
Date/Time of Note Date/Time of Note DATE: 06/03/16 TIME: 13:07 Assessment/Plan VTE Prophylaxis VTE Prophylaxis Intervention: heparin Lines/Catheters IV Catheter Type (from Nrsg): PICC Line Central line still needed: Yes Urinary Cath still in place: Yes Reason Cath still needed: other (indicate) (monitor I&O) Assessment/Plan Chief Complaint/Hosp Course Assessment and plan 1. Acute respiratory failure. Multifactorial: CHF/COPD exacerbation/possible pneumonia. News Technical Director and soft metals engraver hand following. . Continue diuretic therapy. On bronchodilators. 2. History of CAD status post stent placement. News Technical Director following. . Continue statin and aspirin. 3. Reported arrhythmia with atrial fibrillation. continue amiodarone and telemetry monitoring. stable at present 4. History of CHF. Continue diuretic therapy. 5. Suspect pneumonia. cont on abx Disposition and plan: Continue vent weaning as tolerated. Continue ICU monitoring for now. Follow up ABG Discussed plan of care with Dr. Reyes Critical Care time: 30 minutes Problems: Subjective 24 Hr Interval Summary Free Text/Dictation Intubated. No apparent distress Exam/Review of Systems Vital Signs Vitals Vital Signs Date Time Temp Pulse Resp B/P Pulse Ox O2 Delivery O2 Flow Rate FiO2 06/03/16 12:00 87 06/03/16 10:00 20 102/71 93 Mechanical Ventilator 06/03/16 08:00 60 06/03/16 08:00 98.0 05/31/16 11:30 5.0 Intake and Output 06/02/16 06/02/16 06/03/16 15:00 23:00 07:00 Intake Total 408.532 ml 481.136 ml 537.244 ml Output Total 940 ml 665 ml 550 ml Balance -531.468 ml -183.864 ml -12.756 ml Exam Constitutional: other (intubated and sedated ), no s/s of distress Head: normocephalic Respiratory: Diminished lung bases Cardiovascular: other (regular rate ) unchanged Gastrointestinal: other (soft, minimally protuberant) Extremities: edema (BLE , BUE ) Neurological: other (intubated and sedated ) Results Result Diagram: 06/03/16 0500 06/03/16 0500 Results 24 hrs Laboratory Tests Test 06/02/16 14:50 06/03/16 05:00 06/03/16 07:00 Hemoglobin 13.8 L 13.6 L Hematocrit 44.3 43.7 Platelet Count 133 L 129 L Prothrombin Time 13.3 Prothrombin Time Ratio 1.0 INR International Normalized Ratio 1.01 Activated Partial Thromboplast Time 52.4 H Thrombin Time 19.0 White Blood Count 11.2 #H Red Blood Count 4.37 L Mean Corpuscular Volume 100.0 Mean Corpuscular Hemoglobin 31.1 Mean Corpuscular Hemoglobin Concent 31.1 L Red Cell Distribution Width 15.8 H Mean Platelet Volume 12.3 H Neutrophils % 91.0 H Band Neutrophils % 2.0 Lymphocytes % 5.0 L Monocytes % 2.0 Neutrophils # 10.2 H Lymphocytes # 0.6 L Monocytes # 0.2 L Platelet Estimate PLT APPEAR DECREASED Large Platelets FEW Sodium Level 141 Potassium Level 4.3 Chloride Level 97 Carbon Dioxide Level 37 H Anion Gap 11 Blood Urea Nitrogen 26 H Creatinine 0.64 Glucose Level 149 Calcium Level 8.6 Phosphorus Level 3.3 Magnesium Level 2.3 Blood Gas Specimen Source Blood arterial Arterial Blood Date Drawn 06/03/2016 8:45:00 AM Arterial Blood pH (Temp corrected) 7.414 Arterial Blood pCO2 (Temp correct) 58.8 H Arterial Blood pO2 (Temp corrected) 66.7 L Arterial Blood HCO3 36.8 H Arterial Blood Base Excess 9.7 H Arterial Blood Oxygen Saturation 93.1 L Jayro Test ACCEPTAB Arterial Blood Gas Puncture Site Right Radial Arterial Blood Carboxyhemoglobin 0.2 Arterial Blood Methemoglobin 0.2 Blood Gas A-a O2 Differential 296.4 H Oxyhemoglobin Percent 92.7 L Total Hemoglobin 15.3 Blood Gas Temperature 37.0 Blood Gas Respiration Rate 20.0 Blood Gas Actual Respiration Rate 23 Blood Gas Modality VENT - AC FiO2 60.0 Blood Gas Tidal Volume 550.0 Blood Gas Low PEEP Setting 5.0 Blood Gas Notified Whom LADONNA VERGARA Blood Gas Notified Time 06/03/2016 9:04:00 AM Medications Medications Current Medications Morphine Sulfate (morphine) 2 mg Q4H PRN IV PAIN LEVEL 7-10; Start 05/30/16 at 22:30 Ondansetron HCl (Zofran Inj) 4 mg Q6H PRN IV NAUSEA AND/OR VOMITING; Start at 22:30 Amiodarone HCl (Cordarone) 200 mg BID PO Last administered on 06/03/16 09:36; Admin Dose 200 MG; Start 05/30/16 at 22:30 Atorvastatin Calcium (Lipitor) 20 mg QHS PO Last administered on 06/02/16 20: 45; Admin Dose 20 MG; Start 05/31/16 at 21:00 Clopidogrel Bisulfate (plaVIX) 75 mg DAILY PO Last administered on 06/03/16 09 :35; Admin Dose 75 MG; Start 05/31/16 at 09:00 Furosemide (Lasix) 40 mg DAILY@06 PO Last administered on 06/03/16 05:34; Admin Dose 40 MG; Start 05/31/16 at 06:00 Losartan Potassium (Cozaar) 25 mg DAILY PO Last administered on 05/31/16 08:51 ; Admin Dose 25 MG; Start 05/31/16 at 09:00; Status Future Hold Nitroglycerin (Nitroglycerin (Sl Tab) 0.4 Mg) 1 tab PRN PRN SL CHEST PAIN; Start 05/30/16 at 22:30 Potassium Chloride 10 meq 10 meq AM PO Last administered on 06/03/16 09:35; Admin Dose 10 MEQ; Start 05/31/16 at 09:00 Levofloxacin/ Dextrose (Levaquin 500mg/ D5W 100 ml (Pmx)) 100 ml @ 100 mls/hr Q24H IVPB Last administered on 06/03/16 05:29; Admin Dose 100 MLS/HR; Start at 06:00 Magnesium Hydroxide (Milk Of Mag) 30 ml DAILY PRN PO CONSTIPATION; Start at 07:00 Aspirin (Halfprin) 81 mg DAILY PO Last administered on 06/03/16 09:34; Admin Dose 81 MG; Start 05/31/16 at 09:00 Methylprednisolone Sodium Succinate 80 mg 80 mg Q6 IV Last administered on 06/03 12:39; Admin Dose 80 MG; Start 05/31/16 at 18:00 Midazolam HCl 50 ml @ 1 mls/hr TITRATE IV Last administered on 06/03/16 05:29 ; Admin Dose 5 MLS/HR; Start 05/31/16 at 16:00 Norepinephrine/ Dextrose (Levophed/D5W) 500 ml @ 1.87 mls/hr TITRATE IV Last administered on 05/31/16 19:57; Admin Dose 5.62 MLS/HR; Start 05/31/16 at 19:00 Lorazepam 2 mg 2 mg Q6H PRN IV ANXIETY Last administered on 06/01/16 07:55; Admin Dose 2 MG; Start 05/31/16 at 23:30 Propofol (Diprivan) 100 ml @ 2.964 mls/ hr Q12H IV Last administered on 11:31; Admin Dose 8.892 MLS/HR; Start 06/01/16 at 09:30 IV Flush (NS 10 ml) 10 ml PRN PRN IV IV PROTOCOL; Start 06/01/16 at 13:30 Carvedilol (Coreg) 3.125 mg BID PO Last administered on 06/03/16 09:36; Admin Dose 3.125 MG; Start 06/02/16 at 21:00 MICHAEL BURCIAGA Jun 03, 2016 13:16
[2016-06-03] MEDS ORDERED: IPRATROPIUM (HFA) 12.9 GM INHALER INH PRN (13:30)
[2016-06-03] MEDS ORDERED: ALBUTEROL 18 GM INHALER INH PRN (13:30)
--- NOTE | 2016-06-03 19:02 | RADRPT ---
PROCEDURE: XR Chest. CLINICAL INDICATION: Shortness of breath. TECHNIQUE: Single frontal view. COMPARISON: 06/02/2016. FINDINGS: The endotracheal tube, nasogastric tube, and left arm PICC line remain in satisfactory position. Mi ld pulmonary edema is unchanged. The heart is enlarged. There is no pleural effusion. There is no pneumothorax. IMPRESSION: 1. No change from 06/02/2016. RPTAT: QQ .Phani De La Fuente MD, MD Date Time Electronically viewed and signed by .Phani De La Fuente MD, MD on 06/03/2016 19:02 .R/
[2016-06-03] MEDS: ATORVASTATIN 20 MG TAB PO SCH (20:45)
[2016-06-04] VITALS (35 sets, daily range): BP systolic 95–126; BP diastolic 60–90; PULSE 68–107; RESP 20–26
[2016-06-04] MEDS: METHYLPREDNISOLONE 125 MG INJ IV SCH ×4 (00:12→17:26)
[2016-06-04 05:22] LABS: ADD SCAN DIFF NO
[2016-06-04 05:26] LABS: HEMATOCRIT 43.8 % (42.0-52.0); HEMOGLOBIN 14.2 g/dl (14.0-18.0); MEAN CORPUSCULAR HEMOGLOBIN 31.8 pg (29.0-33.0); MEAN CORPUSCULAR HGB CONC 32.4 g/dl (32.0-37.0); PLATELET COUNT 130 10^3/UL (140-415); RED BLOOD COUNT 4.47 10^6/ul (4.70-6.10); RED CELL DISTRIBUTION WIDTH 15.5 % (11.5-14.5); WHITE BLOOD COUNT 9.4 10^3/ul (4.8-10.8)
[2016-06-04] MEDS: MIDAZOLAM (DRIP) 50 mg/50 mL 50 ML IV SCH ×3 (05:47→22:32)
[2016-06-04] MEDS: FUROSEMIDE 40 MG TAB PO SCH (05:47)
[2016-06-04] MEDS: LEVOFLOXACIN 500MG/D5W (PMX) 100 ML IVPB SCH (05:47)
[2016-06-04 05:52] LABS: POTASSIUM 3.8 mmol/L (3.5-5.1)
[2016-06-04 05:54] LABS: CREATININE 0.65 mg/dl (0.61-1.24)
[2016-06-04 05:55] LABS: CALCIUM 8.5 mg/dl (8.4-10.2)
[2016-06-04] MEDS: PROPOFOL 100 ML IV SCH ×3 (07:23→22:34)
[2016-06-04] MEDS: ASPIRIN (EC) 81 MG TAB PO SCH (08:47)
[2016-06-04] MEDS: POTASSIUM CHLORIDE (SR) 10 MEQ TAB PO SCH (08:47)
[2016-06-04] MEDS: CLOPIDOGREL 75 MG TAB PO SCH (08:47)
[2016-06-04] MEDS: AMIODARONE 200 MG TAB PO SCH ×2 (08:48→21:07)
--- NOTE | 2016-06-04 10:30 | CONS ---
Date/Time of Note Date/Time of Note DATE: 06/04/16 TIME: 10:28 Assessment/Plan Assessment/Plan Additional Assessment/Plan Chest x-ray was reviewed from yesterday evening which is essentially cleared. Endotracheal tube is at an adequate level. Next Current ventilator settings; AC of 20, tidal volume 550, PEEP of 5, 50% FiO2. Assessment recommendations; 1. Patient admitted for COPD exacerbation leading to respiratory failure. 2. Severe hypercapnia. 3. Obesity. 4. Hypertension. 5. Likely underlying sleep apnea. Continue current treatment. Wean down FiO2 to keep O2 saturation around 90-94% . Patient likely may need to have a tracheostomy performed. Consultation Date/Type/Reason Admit Date/Time May 30, 2016 at 20:05 Initial Consult Date 05/31/16 Type of Consultation: Pulmonary/critical care Referring Provider: BERNARDO PULIDO MD 24 HR Interval Summary Free Text/Dictation Patient condition remains critical. Still requiring full ventilator support. Has remained hemodynamically stable. Exam; elderly male, orally intubated, currently in no distress. Exam/Review of Systems Vital Signs Vitals Vital Signs Date Time Temp Pulse Resp B/P Pulse Ox O2 Delivery O2 Flow Rate FiO2 06/04/16 10:00 91 20 95/65 94 Mechanical Ventilator 06/04/16 08:00 98.9 06/04/16 08:00 60 05/31/16 11:30 5.0 Intake and Output 06/03/16 06/03/16 06/04/16 15:00 23:00 07:00 Intake Total 633.136 ml 552.324 ml 591.244 ml Output Total 950 ml 745 ml 280 ml Balance -316.864 ml -192.676 ml 311.244 ml Exam HEENT exam is; supple neck, no JVD. No lymphadenopathy. Midline trachea. No thyromegaly. Orally intubated. Pupils are midsize and reactive to light. Patient has multiple missing teeth. Chest examined; diminished but clear vessel. No added sound. S1-S2 audible, no murmurs. Regular rhythm. Abdomen examination; soft, protuberant. No organomegaly. Bowel sounds audible. Extremity examination: Patient is sedated. Results Result Diagram: 06/04/16 0500 06/04/16 0500 Results 24 hrs Laboratory Tests Test 06/04/16 05:00 White Blood Count 9.4 Red Blood Count 4.47 L Hemoglobin 14.2 Hematocrit 43.8 Mean Corpuscular Volume 98.0 Mean Corpuscular Hemoglobin 31.8 Mean Corpuscular Hemoglobin Concent 32.4 Red Cell Distribution Width 15.5 H Platelet Count 130 L Mean Platelet Volume 12.0 H Neutrophils % Lymphocytes % Monocytes % Neutrophils # Lymphocytes # Monocytes # Sodium Level 142 Potassium Level 3.8 Chloride Level 96 L Carbon Dioxide Level 37 H Anion Gap 13 Blood Urea Nitrogen 29 H Creatinine 0.65 Glucose Level 155 Calcium Level 8.5 Medications Medications Current Medications Morphine Sulfate (morphine) 2 mg Q4H PRN IV PAIN LEVEL 7-10; Start 05/30/16 at 22:30 Ondansetron HCl (Zofran Inj) 4 mg Q6H PRN IV NAUSEA AND/OR VOMITING; Start at 22:30 Amiodarone HCl (Cordarone) 200 mg BID PO Last administered on 06/04/16 08:48; Admin Dose 200 MG; Start 05/30/16 at 22:30 Atorvastatin Calcium (Lipitor) 20 mg QHS PO Last administered on 06/03/16 20: 45; Admin Dose 20 MG; Start 05/31/16 at 21:00 Clopidogrel Bisulfate (plaVIX) 75 mg DAILY PO Last administered on 06/04/16 08 :47; Admin Dose 75 MG; Start 05/31/16 at 09:00 Furosemide (Lasix) 40 mg DAILY@06 PO Last administered on 06/04/16 05:47; Admin Dose 40 MG; Start 05/31/16 at 06:00 Losartan Potassium (Cozaar) 25 mg DAILY PO Last administered on 05/31/16 08:51 ; Admin Dose 25 MG; Start 05/31/16 at 09:00; Status Future Hold Nitroglycerin (Nitroglycerin (Sl Tab) 0.4 Mg) 1 tab PRN PRN SL CHEST PAIN; Start 05/30/16 at 22:30 Potassium Chloride 10 meq 10 meq AM PO Last administered on 06/04/16 08:47; Admin Dose 10 MEQ; Start 05/31/16 at 09:00 Levofloxacin/ Dextrose (Levaquin 500mg/ D5W 100 ml (Pmx)) 100 ml @ 100 mls/hr Q24H IVPB Last administered on 06/04/16 05:47; Admin Dose 100 MLS/HR; Start at 06:00 Magnesium Hydroxide (Milk Of Mag) 30 ml DAILY PRN PO CONSTIPATION; Start at 07:00 Aspirin (Halfprin) 81 mg DAILY PO Last administered on 06/04/16 08:47; Admin Dose 81 MG; Start 05/31/16 at 09:00 Methylprednisolone Sodium Succinate 80 mg 80 mg Q6 IV Last administered on 06/04 05:47; Admin Dose 80 MG; Start 05/31/16 at 18:00 Midazolam HCl 50 ml @ 1 mls/hr TITRATE IV Last administered on 06/04/16 05:47 ; Admin Dose 7 MLS/HR; Start 05/31/16 at 16:00 Norepinephrine/ Dextrose (Levophed/D5W) 500 ml @ 1.87 mls/hr TITRATE IV Last administered on 05/31/16 19:57; Admin Dose 5.62 MLS/HR; Start 05/31/16 at 19:00 Lorazepam 2 mg 2 mg Q6H PRN IV ANXIETY Last administered on 06/01/16 07:55; Admin Dose 2 MG; Start 05/31/16 at 23:30 Propofol (Diprivan) 100 ml @ 2.964 mls/ hr Q12H IV Last administered on 07:23; Admin Dose 8.892 MLS/HR; Start 06/01/16 at 09:30 IV Flush (NS 10 ml) 10 ml PRN PRN IV IV PROTOCOL; Start 06/01/16 at 13:30 Carvedilol (Coreg) 3.125 mg BID PO Last administered on 06/04/16 08:48; Admin Dose 3.125 MG; Start 06/02/16 at 21:00 JOSE GILLIS Jun 04, 2016 10:30
--- NOTE | 2016-06-04 10:32 | CONS ---
Date/Time of Note Date/Time of Note DATE: 06/04/16 TIME: 10:31 Assessment/Plan Assessment/Plan Chief Complaint/Hosp Course IMPRESSION: 1. Atrial fibrillation-Rate controlled 2. Abnormal electrocardiogram, assess for acute coronary syndrome.-negative troponin x 3 3. Respiratory failure, assess for congestive heart failure. 4. History of percutaneous transluminal coronary angioplasty and stent placement 1 week prior at [facility] on aspirin and Plavix. 5. Hypotension. 6. Probable chronic obstructive pulmonary disease by history and chest x-ray findings. 7. Hyponatremia-improved 8. Respiratory acidosis. Recc: -Tele -serial ecg -Continue coreg as tolerated -Continue amio -Continue asa/plavix/SQ heparin q8 -Continue abx's -F/U cx data Problems: Consultation Date/Type/Reason Admit Date/Time May 30, 2016 at 20:05 Initial Consult Date 05/31/16 Type of Consultation: Cardiology Reason for Consultation AF Referring Provider: BERNARDO PULIDO MD Exam/Review of Systems Vital Signs Vitals Vital Signs Date Time Temp Pulse Resp B/P Pulse Ox O2 Delivery O2 Flow Rate FiO2 06/04/16 10:00 91 20 95/65 94 Mechanical Ventilator 06/04/16 08:00 98.9 06/04/16 08:00 60 05/31/16 11:30 5.0 Intake and Output 06/03/16 06/03/16 06/04/16 15:00 23:00 07:00 Intake Total 633.136 ml 552.324 ml 591.244 ml Output Total 950 ml 745 ml 280 ml Balance -316.864 ml -192.676 ml 311.244 ml Exam Review of Systems: CONSTITUTIONAL: No fevers, chills. PULMONARY: intubated CARDIOVASCULAR: No chest pain/palpitations GASTROINTESTINAL: No nausea/vomiting. GENITOURINARY: No hematuria/dysuria. MUSCULOSKELETAL: No myagias/arthalgias. PSYCHIATRIC: NO documented depression. NEUROLOGIC:sedated Constitutional: alert, oriented Psych: no complaints Head: normocephalic ENMT: mucosa pink and moist Neck: jvd (9 cm water), supple Respiratory: diminished breath sounds (at bases/B) Cardiovascular: regular rate and rhythm Gastrointestinal: non-tender, soft Musculoskeletal: muscle tone (normal) Extremities: edema (None) Neurological: other (sedated) Results Result Diagram: 06/04/16 0500 06/04/16 0500 Results 24 hrs Laboratory Tests Test 06/04/16 05:00 White Blood Count 9.4 Red Blood Count 4.47 L Hemoglobin 14.2 Hematocrit 43.8 Mean Corpuscular Volume 98.0 Mean Corpuscular Hemoglobin 31.8 Mean Corpuscular Hemoglobin Concent 32.4 Red Cell Distribution Width 15.5 H Platelet Count 130 L Mean Platelet Volume 12.0 H Neutrophils % Lymphocytes % Monocytes % Neutrophils # Lymphocytes # Monocytes # Sodium Level 142 Potassium Level 3.8 Chloride Level 96 L Carbon Dioxide Level 37 H Anion Gap 13 Blood Urea Nitrogen 29 H Creatinine 0.65 Glucose Level 155 Calcium Level 8.5 Medications Medications Current Medications Morphine Sulfate (morphine) 2 mg Q4H PRN IV PAIN LEVEL 7-10; Start 05/30/16 at 22:30 Ondansetron HCl (Zofran Inj) 4 mg Q6H PRN IV NAUSEA AND/OR VOMITING; Start at 22:30 Amiodarone HCl (Cordarone) 200 mg BID PO Last administered on 06/04/16 08:48; Admin Dose 200 MG; Start 05/30/16 at 22:30 Atorvastatin Calcium (Lipitor) 20 mg QHS PO Last administered on 06/03/16 20: 45; Admin Dose 20 MG; Start 05/31/16 at 21:00 Clopidogrel Bisulfate (plaVIX) 75 mg DAILY PO Last administered on 06/04/16 08 :47; Admin Dose 75 MG; Start 05/31/16 at 09:00 Furosemide (Lasix) 40 mg DAILY@06 PO Last administered on 06/04/16 05:47; Admin Dose 40 MG; Start 05/31/16 at 06:00 Losartan Potassium (Cozaar) 25 mg DAILY PO Last administered on 05/31/16 08:51 ; Admin Dose 25 MG; Start 05/31/16 at 09:00; Status Future Hold Nitroglycerin (Nitroglycerin (Sl Tab) 0.4 Mg) 1 tab PRN PRN SL CHEST PAIN; Start 05/30/16 at 22:30 Potassium Chloride 10 meq 10 meq AM PO Last administered on 06/04/16 08:47; Admin Dose 10 MEQ; Start 05/31/16 at 09:00 Levofloxacin/ Dextrose (Levaquin 500mg/ D5W 100 ml (Pmx)) 100 ml @ 100 mls/hr Q24H IVPB Last administered on 06/04/16 05:47; Admin Dose 100 MLS/HR; Start at 06:00 Magnesium Hydroxide (Milk Of Mag) 30 ml DAILY PRN PO CONSTIPATION; Start at 07:00 Aspirin (Halfprin) 81 mg DAILY PO Last administered on 06/04/16 08:47; Admin Dose 81 MG; Start 05/31/16 at 09:00 Methylprednisolone Sodium Succinate 80 mg 80 mg Q6 IV Last administered on 06/04 05:47; Admin Dose 80 MG; Start 05/31/16 at 18:00 Midazolam HCl 50 ml @ 1 mls/hr TITRATE IV Last administered on 06/04/16 05:47 ; Admin Dose 7 MLS/HR; Start 05/31/16 at 16:00 Norepinephrine/ Dextrose (Levophed/D5W) 500 ml @ 1.87 mls/hr TITRATE IV Last administered on 05/31/16 19:57; Admin Dose 5.62 MLS/HR; Start 05/31/16 at 19:00 Lorazepam 2 mg 2 mg Q6H PRN IV ANXIETY Last administered on 06/01/16 07:55; Admin Dose 2 MG; Start 05/31/16 at 23:30 Propofol (Diprivan) 100 ml @ 2.964 mls/ hr Q12H IV Last administered on 07:23; Admin Dose 8.892 MLS/HR; Start 06/01/16 at 09:30 IV Flush (NS 10 ml) 10 ml PRN PRN IV IV PROTOCOL; Start 06/01/16 at 13:30 Carvedilol (Coreg) 3.125 mg BID PO Last administered on 06/04/16 08:48; Admin Dose 3.125 MG; Start 06/02/16 at 21:00 MIGUEL ANGEL GAONA Jun 04, 2016 10:32
[2016-06-04 10:59] LABS: EOSINOPHILS # 0.2 10^3/ul (0.0-0.5); MONOCYTE # 0.9 10^3/ul (0.3-0.9); NEUTROPHIL # 7.1 10^3/ul (1.6-7.5); PLATELET ESTIMATE PLT APPEAR DECREASED
--- NOTE | 2016-06-04 13:33 | PN ---
Date/Time of Note Date/Time of Note DATE: 06/04/16 TIME: 13:27 Assessment/Plan VTE Prophylaxis VTE Prophylaxis Intervention: SCD's Lines/Catheters IV [facility]from [facility] PICC Line Central line still needed: Yes Urinary Cath still in place: Yes Reason Cath still needed: other (indicate) (monitor I&O) Assessment/Plan Chief Complaint/Hosp Course Assessment and plan 1. Acute respiratory failure. Multifactorial: CHF/COPD exacerbation/possible pneumonia. Blockman and wide area network systems administrator following. Continue diuretic therapy. On bronchodilators. Continue pulmonary hygiene. Continue with wide area network systems administrator recommendations. vent liberation as tolerated. May need tracheostomy per wide area network systems administrator 2. History of CAD status post stent placement a week ago. Blockman following. Monitor troponin. Continue statin and aspirin. Follow up with rn maternity recs 3. Reported arrhythmia with atrial fibrillation. Stable on amiodarone 4. History of CHF. Continue diuretic therapy. . 5. Suspect pneumonia. cont on abx Disposition and plan: Continue vent liberation as tolerated. Continue ICU monitoring. Prognosis guarded Discussed plan of care with Dr. Reyes Critical Care time: 30 minutes Problems: Subjective 24 Hr Interval Summary Free Text/Dictation Remains intubated and sedated. No apparent distress seen Exam/Review of Systems Vital Signs Vitals Vital Signs Date Time Temp Pulse Resp B/P Pulse Ox O2 Delivery O2 Flow Rate FiO2 06/04/16 12:00 73 06/04/16 10:00 20 95/65 94 Mechanical Ventilator 06/04/16 08:00 98.9 06/04/16 08:00 60 05/31/16 11:30 5.0 Intake and Output 06/03/16 06/03/16 06/04/16 15:00 23:00 07:00 Intake Total 633.136 ml 552.324 ml 591.244 ml Output Total 950 ml 745 ml 280 ml Balance -316.864 ml -192.676 ml 311.244 ml Exam Constitutional: other (intubated and sedated ), appears comfortable at present Head: normocephalic Respiratory: Diminished lung bases, unchanged Cardiovascular: other (regular rate ) unchanged Gastrointestinal: other (soft, minimally protuberant) Extremities: edema (BLE , BUE ) little less today Neurological: other (intubated and sedated ) Results Result Diagram: 06/04/16 0500 06/04/16 0500 Results 24 hrs Laboratory Tests Test 06/04/16 05:00 White Blood Count 9.4 Red Blood Count 4.47 L Hemoglobin 14.2 Hematocrit 43.8 Mean Corpuscular Volume 98.0 Mean Corpuscular Hemoglobin 31.8 Mean Corpuscular Hemoglobin Concent 32.4 Red Cell Distribution Width 15.5 H Platelet Count 130 L Mean Platelet Volume 12.0 H Neutrophils % 76.0 Lymphocytes % 11.0 L Reactive Lymphocytes % 1.0 Monocytes % 10.0 Eosinophils % 2.0 Neutrophils # 7.1 Lymphocytes # 1.0 Monocytes # 0.9 Eosinophils # 0.2 Platelet Estimate PLT APPEAR DECREASED Sodium Level 142 Potassium Level 3.8 Chloride Level 96 L Carbon Dioxide Level 37 H Anion Gap 13 Blood Urea Nitrogen 29 H Creatinine 0.65 Glucose Level 155 Calcium Level 8.5 Medications Medications Current Medications Morphine Sulfate (morphine) 2 mg Q4H PRN IV PAIN LEVEL 7-10; Start 05/30/16 at 22:30 Ondansetron HCl (Zofran Inj) 4 mg Q6H PRN IV NAUSEA AND/OR VOMITING; Start at 22:30 Amiodarone HCl (Cordarone) 200 mg BID PO Last administered on 06/04/16 08:48; Admin Dose 200 MG; Start 05/30/16 at 22:30 Atorvastatin Calcium (Lipitor) 20 mg QHS PO Last administered on 06/03/16 20: 45; Admin Dose 20 MG; Start 05/31/16 at 21:00 Clopidogrel Bisulfate (plaVIX) 75 mg DAILY PO Last administered on 06/04/16 08 :47; Admin Dose 75 MG; Start 05/31/16 at 09:00 Furosemide (Lasix) 40 mg DAILY@06 PO Last administered on 06/04/16 05:47; Admin Dose 40 MG; Start 05/31/16 at 06:00 Losartan Potassium (Cozaar) 25 mg DAILY PO Last administered on 05/31/16 08:51 ; Admin Dose 25 MG; Start 05/31/16 at 09:00; Status Future Hold Nitroglycerin (Nitroglycerin (Sl Tab) 0.4 Mg) 1 tab PRN PRN SL CHEST PAIN; Start 05/30/16 at 22:30 Potassium Chloride 10 meq 10 meq AM PO Last administered on 06/04/16 08:47; Admin Dose 10 MEQ; Start 05/31/16 at 09:00 Levofloxacin/ Dextrose (Levaquin 500mg/ D5W 100 ml (Pmx)) 100 ml @ 100 mls/hr Q24H IVPB Last administered on 06/04/16 05:47; Admin Dose 100 MLS/HR; Start at 06:00 Magnesium Hydroxide (Milk Of Mag) 30 ml DAILY PRN PO CONSTIPATION; Start at 07:00 Aspirin (Halfprin) 81 mg DAILY PO Last administered on 06/04/16 08:47; Admin Dose 81 MG; Start 05/31/16 at 09:00 Methylprednisolone Sodium Succinate 80 mg 80 mg Q6 IV Last administered on 06/04 11:24; Admin Dose 80 MG; Start 05/31/16 at 18:00 Midazolam HCl 50 ml @ 1 mls/hr TITRATE IV Last administered on 06/04/16 13:13 ; Admin Dose 7 MLS/HR; Start 05/31/16 at 16:00 Norepinephrine/ Dextrose (Levophed/D5W) 500 ml @ 1.87 mls/hr TITRATE IV Last administered on 05/31/16 19:57; Admin Dose 5.62 MLS/HR; Start 05/31/16 at 19:00 Lorazepam 2 mg 2 mg Q6H PRN IV ANXIETY Last administered on 06/01/16 07:55; Admin Dose 2 MG; Start 05/31/16 at 23:30 Propofol (Diprivan) 100 ml @ 2.964 mls/ hr Q12H IV Last administered on 07:23; Admin Dose 8.892 MLS/HR; Start 06/01/16 at 09:30 IV Flush (NS 10 ml) 10 ml PRN PRN IV IV PROTOCOL; Start 06/01/16 at 13:30 Carvedilol (Coreg) 3.125 mg BID PO Last administered on 06/04/16 08:48; Admin Dose 3.125 MG; Start 06/02/16 at 21:00 MICHAEL BURCIAGA Jun 04, 2016 13:32
[2016-06-04] MEDS: ATORVASTATIN 20 MG TAB PO SCH (21:07)
[2016-06-05] VITALS (34 sets, daily range): BP systolic 101–129; BP diastolic 66–98; PULSE 76–101; RESP 20–24
[2016-06-05] MEDS: METHYLPREDNISOLONE 125 MG INJ IV SCH ×4 (00:09→17:13)
[2016-06-05] MEDS: LEVOFLOXACIN 500MG/D5W (PMX) 100 ML IVPB SCH (05:36)
[2016-06-05] MEDS: FUROSEMIDE 40 MG TAB PO SCH (05:36)
[2016-06-05 05:54] LABS: ADD SCAN DIFF NO
[2016-06-05 06:03] LABS: BASOPHILS % 0.1 % (0.0-2.0); HEMATOCRIT 44.7 % (42.0-52.0); HEMOGLOBIN 14.4 g/dl (14.0-18.0); LYMPHOCYTES # 0.7 10^3/ul (0.8-2.9); MEAN CORPUSCULAR HEMOGLOBIN 31.3 pg (29.0-33.0); MEAN CORPUSCULAR HGB CONC 32.2 g/dl (32.0-37.0); MEAN CORPUSCULAR VOLUME 97.2 fl (82.0-101.0); MEAN PLATELET VOLUME 11.9 fl (7.4-10.4); MONOCYTE # 0.4 10^3/ul (0.3-0.9); MONOCYTES % 5.2 % (0.0-11.0); NEUTROPHIL # 6.8 10^3/ul (1.6-7.5); NEUTROPHILS % 85.1 % (39.0-77.0); PLATELET COUNT 129 10^3/UL (140-415); RED CELL DISTRIBUTION WIDTH 15.1 % (11.5-14.5)
[2016-06-05 06:36] LABS: POTASSIUM 3.6 mmol/L (3.5-5.1)
[2016-06-05 06:39] LABS: CREATININE 0.67 mg/dl (0.61-1.24)
[2016-06-05 06:40] LABS: CALCIUM 8.1 mg/dl (8.4-10.2)
[2016-06-05] MEDS: MIDAZOLAM (DRIP) 50 mg/50 mL 50 ML IV SCH ×3 (06:45→22:41)
[2016-06-05] MEDS: PROPOFOL 100 ML IV SCH ×2 (08:02→17:31)
[2016-06-05] MEDS: CLOPIDOGREL 75 MG TAB PO SCH (08:29)
[2016-06-05] MEDS: AMIODARONE 200 MG TAB PO SCH ×2 (08:29→20:56)
[2016-06-05] MEDS: POTASSIUM CHLORIDE (SR) 10 MEQ TAB PO SCH (08:29)
[2016-06-05] MEDS: ASPIRIN (EC) 81 MG TAB PO SCH (08:29)
--- NOTE | 2016-06-05 09:50 | CONS ---
Date/Time of Note Date/Time of Note DATE: 06/05/16 TIME: 09:46 Consult Date/Type/Reason Admit Date/Time May 30, 2016 at 20:05 Initial Consult Date 05/31/16 Type of Consultation: Pulmonary ICU Ordering Provider: BERNARDO PULIDO MD Subjective Patient remains intubated sedated on mechanical ventilation Significant agitation despite this maximal sedation Currently remains hemodynamically stable Objective Vital Signs Date Time Temp Pulse Resp B/P Pulse Ox O2 Delivery O2 Flow Rate FiO2 06/05/16 09:00 90 23 117/88 96 Mechanical Ventilator 06/05/16 07:00 98.6 06/05/16 05:22 50 Intake and Output 06/04/16 06/04/16 06/05/16 14:59 22:59 06:59 Intake Total 568.99 ml 564.89 ml 750.460 ml Output Total 1010 ml 365 ml 500 ml Balance -441.01 ml 199.89 ml 250.460 ml Exam PHYSICAL EXAMINATION: Well-nourished well-developed gentleman intubated on mechanical ventilation VITAL SIGNS: As above NECK: Supple, no JVD or lymphadenopathy. CARDIAC: S1, S2, no added sounds or murmurs. CHEST: Diminished air entry bilaterally. ABDOMEN: Soft, nontender. No guarding or rebound. EXTREMITIES: No cyanosis, clubbing, edema. NEUROLOGIC: Generalized weakness. Results/Medications Result Diagram: 06/05/16 0500 06/05/16 0500 Results 24 hrs Laboratory Tests Test 06/05/16 05:00 White Blood Count 8.0 Red Blood Count 4.60 L Hemoglobin 14.4 Hematocrit 44.7 Mean Corpuscular Volume 97.2 Mean Corpuscular Hemoglobin 31.3 Mean Corpuscular Hemoglobin Concent 32.2 Red Cell Distribution Width 15.1 H Platelet Count 129 L Mean Platelet Volume 11.9 H Neutrophils % 85.1 H Lymphocytes % 9.0 L Monocytes % 5.2 Eosinophils % 0.0 Basophils % 0.1 Nucleated Red Blood Cells % 0.0 Neutrophils # 6.8 Lymphocytes # 0.7 L Monocytes # 0.4 Eosinophils # 0.0 Basophils # 0.0 Nucleated Red Blood Cells # 0.0 Sodium Level 140 Potassium Level 3.6 Chloride Level 95 L Carbon Dioxide Level 34 H Anion Gap 15 Blood Urea Nitrogen 33 H Creatinine 0.67 Glucose Level 157 Calcium Level 8.1 L Medications Current Medications Morphine Sulfate (morphine) 2 mg Q4H PRN IV PAIN LEVEL 7-10; Start 05/30/16 at 22:30 Ondansetron HCl (Zofran Inj) 4 mg Q6H PRN IV NAUSEA AND/OR VOMITING; Start at 22:30 Amiodarone HCl (Cordarone) 200 mg BID PO Last administered on 06/05/16 08:29; Admin Dose 200 MG; Start 05/30/16 at 22:30 Atorvastatin Calcium (Lipitor) 20 mg QHS PO Last administered on 06/04/16 21: 07; Admin Dose 20 MG; Start 05/31/16 at 21:00 Clopidogrel Bisulfate (plaVIX) 75 mg DAILY PO Last administered on 06/05/16 08: 29; Admin Dose 75 MG; Start 05/31/16 at 09:00 Furosemide (Lasix) 40 mg DAILY@06 PO Last administered on 06/05/16 05:36; Admin Dose 40 MG; Start 05/31/16 at 06:00 Losartan Potassium (Cozaar) 25 mg DAILY PO Last administered on 05/31/16 08:51 ; Admin Dose 25 MG; Start 05/31/16 at 09:00; Status Future Hold Nitroglycerin (Nitroglycerin (Sl Tab) 0.4 Mg) 1 tab PRN PRN SL CHEST PAIN; Start 05/30/16 at 22:30 Potassium Chloride 10 meq 10 meq AM PO Last administered on 06/05/16 08:29; Admin Dose 10 MEQ; Start 05/31/16 at 09:00 Levofloxacin/ Dextrose (Levaquin 500mg/ D5W 100 ml (Pmx)) 100 ml @ 100 mls/hr Q24H IVPB Last administered on 06/05/16 05:36; Admin Dose 100 MLS/HR; Start at 06:00 Magnesium Hydroxide (Milk Of Mag) 30 ml DAILY PRN PO CONSTIPATION; Start at 07:00 Aspirin (Halfprin) 81 mg DAILY PO Last administered on 06/05/16 08:29; Admin Dose 81 MG; Start 05/31/16 at 09:00 Methylprednisolone Sodium Succinate 80 mg 80 mg Q6 IV Last administered on 05:35; Admin Dose 80 MG; Start 05/31/16 at 18:00 Midazolam HCl 50 ml @ 1 mls/hr TITRATE IV Last administered on 06/05/16 06:45; Admin Dose 7 MLS/HR; Start 05/31/16 at 16:00 Norepinephrine/ Dextrose (Levophed/D5W) 500 ml @ 1.87 mls/hr TITRATE IV Last administered on 05/31/16 19:57; Admin Dose 5.62 MLS/HR; Start 05/31/16 at 19:00 Lorazepam 2 mg 2 mg Q6H PRN IV ANXIETY Last administered on 06/01/16 07:55; Admin Dose 2 MG; Start 05/31/16 at 23:30 Propofol (Diprivan) 100 ml @ 2.964 mls/ hr Q12H IV Last administered on 08:02; Admin Dose 10.078 MLS/HR; Start 06/01/16 at 09:30 IV Flush (NS 10 ml) 10 ml PRN PRN IV IV PROTOCOL; Start 06/01/16 at 13:30 Carvedilol 3.125 mg 3.125 mg BID PO Last administered on 06/05/16 08:29; Admin Dose 3.125 MG; Start 06/02/16 at 21:00 Dexmedetomidine HCl/Sodium Chloride (Precedex/NS) 50 ml @ 0 mls/hr TITRATE IV ; Start 06/05/16 at 09:30; Status UNV Pantoprazole (Protonix Iv) 40 mg DAILY@06 IV ; Start 06/06/16 at 06:00 Assessment/Plan Chief Complaint/Hosp Course IMPRESSION AND PLAN: 1. Pulmonary edema. 2. History of polysubstance abuse. 3. History of coronary artery disease. 4. Acute Hypoxemic respiratory failure with evidence of chronic hypercapnic respiratory failure The patient will require 1. Continued antibiotics. Trial of Precedex for agitation 2. Continue bronchodilators. 3. Continue supplemental O2. We will attempt CPAP weaning trial once her neurological status stabilizes 4. Continue steroids. 5. DVT and GI prophylaxis. Critical care time 40 minutes. Problems: [facility] June 05, 2016 09:50
--- NOTE | 2016-06-05 10:29 | PN ---
DATE: 06/05/2016 TIME OF EVALUATION: 9:15 a.m. SUBJECTIVE DATA: The patient remains intubated. The patient on sedation. Not on any pressors. OBJECTIVE DATA: VITAL SIGNS: Temperature 98.6, pulse rate 90, respiratory rate 20, blood pressure 117/80, oxygen saturation 96% on supplemental oxygen via mechanical ventilator. GENERAL: This is an obese male patient lying in bed, orally intubated. HEENT: Head normocephalic and atraumatic. Eyes: Anicteric sclerae. Conjunctivae clear. ENT: Nasal septum is midline. Oral mucosa is dry. Orally intubated. NG tube in the right naris. RESPIRATORY: Bilateral diminished breath sounds. On AC mode ventilation. CARDIAC: Irregularly irregular rhythm. S1 and S2 heard. ABDOMEN: Soft, nontender and nondistended. Bowel sounds positive in all 4 quadrants. GENITOURINARY: The patient has a Tellez catheter in place. EXTREMITIES: No cyanosis. Bilateral lower extremity trace pedal edema. Peripheral pulses are palpable. NEUROLOGIC: The patient is sedated. LABORATORY AND DIAGNOSTIC DATA: WBC 8.0, hemoglobin 14.4, hematocrit 44.7, platelet count 129. Sodium 140, potassium 3.6, chloride 95, carbon dioxide 34, anion gap 15, BUN 30, creatinine 0.60, glucose 157, calcium 8.1. ASSESSMENT AND PLAN: 1. Acute respiratory failure, hypoxic and hypercapnic. Currently intubated. Continue mechanical ventilation. Continue inhaled bronchodilators. The etiology of the patient's acute respiratory failure could be multifactorial including COPD and underlying heart disease. 2. Chronic obstructive pulmonary disease exacerbation. Continue inhaled bronchodilators and tapering dose of steroids. Pulmonary following the patient. 3. Atrial fibrillation with rapid ventricular response. Currently, the rate is controlled. Cardiology following. Continue amiodarone. 4. Recent CAD status post stent placement. Continue antiplatelet therapy. 5. Thrombocytopenia. Monitor for any bleeding. Continue antiplatelet therapy because of recent stent placement to the right coronary artery. 6. Prediabetes. Continue to monitor random blood glucose. If the patient's random blood glucose levels are running high, we will start the patient on insulin sliding scale. 7. Dyslipidemia. Continue statins. 8. Fluid, electrolytes and nutrition. Continue NG tube feedings. 9. Deep venous thrombosis prophylaxis with subQ heparin. 10. Gastrointestinal prophylaxis. Proton pump inhibitors. PLAN: Plan is to continue current management. Weaning off ventilator as per pulmonary. The case was discussed with Dr. Tellez. Critical care time: 35 minutes. NELSON TELLEZ MD, AM/BELL Conf#: [id number] DID#: [id number]
[2016-06-05] MEDS ORDERED: DEXMEDETOMIDINE HCL 200 MCG in SOD CHLORIDE 0.9% 48 ML IV SCH (10:30)
--- NOTE | 2016-06-05 12:11 | CONS ---
Date/Time of Note Date/Time of Note DATE: 06/05/16 TIME: 12:09 Assessment/Plan Assessment/Plan Chief Complaint/Hosp Course IMPRESSION: 1. Atrial fibrillation-Rate controlled 2. Abnormal electrocardiogram, assess for acute coronary syndrome.-negative troponin x 3 3. Respiratory failure, assess for congestive heart failure. 4. History of percutaneous transluminal coronary angioplasty and stent placement 1 week prior at [facility] on aspirin and Plavix. 5. Hypotension. 6. Probable chronic obstructive pulmonary disease by history and chest x-ray findings. 7. Hyponatremia-improved 8. Respiratory acidosis. Recc: -Tele -serial ecg -Continue coreg as tolerated -Continue amio -Continue asa/plavix/SQ heparin q8 -Continue abx's -F/U cx data -vent weaning as tolerated -Family meeting tomorrow Problems: Consultation Date/Type/Reason Admit Date/Time May 30, 2016 at 20:05 Initial Consult Date 05/31/16 Type of Consultation: Cardiology Reason for Consultation AF Referring Provider: BERNARDO PULIDO MD Exam/Review of Systems Vital Signs Vitals Vital Signs Date Time Temp Pulse Resp B/P Pulse Ox O2 Delivery O2 Flow Rate FiO2 06/05/16 11:00 82 20 107/78 94 Mechanical Ventilator 06/05/16 08:00 50 06/05/16 07:00 98.6 Intake and Output 06/04/16 06/04/16 06/05/16 15:00 23:00 07:00 Intake Total 627.84 ml 561.932 ml 734.568 ml Output Total 1070 ml 355 ml 500 ml Balance -442.16 ml 206.932 ml 234.568 ml Exam Review of Systems: CONSTITUTIONAL: No fevers, chills. PULMONARY: intubated CARDIOVASCULAR: No obvious chest pain/palpitations GASTROINTESTINAL: No nausea/vomiting. GENITOURINARY: No hematuria/dysuria. MUSCULOSKELETAL: No obvious myagias/arthalgias. PSYCHIATRIC: The patient denies depression. NEUROLOGIC: No weakness Constitutional: other (sedated) Psych: no complaints Head: normocephalic ENMT: mucosa pink and moist Neck: jvd (9 cm water), supple Respiratory: diminished breath sounds (at bases/B) Cardiovascular: irregular rhythm Gastrointestinal: non-tender, soft Musculoskeletal: muscle tone (normal) Extremities: edema (none) Neurological: other (No focal deficits) Results Result Diagram: 06/05/16 0500 06/05/16 0500 Results 24 hrs Laboratory Tests Test 06/05/16 05:00 White Blood Count 8.0 Red Blood Count 4.60 L Hemoglobin 14.4 Hematocrit 44.7 Mean Corpuscular Volume 97.2 Mean Corpuscular Hemoglobin 31.3 Mean Corpuscular Hemoglobin Concent 32.2 Red Cell Distribution Width 15.1 H Platelet Count 129 L Mean Platelet Volume 11.9 H Neutrophils % 85.1 H Lymphocytes % 9.0 L Monocytes % 5.2 Eosinophils % 0.0 Basophils % 0.1 Nucleated Red Blood Cells % 0.0 Neutrophils # 6.8 Lymphocytes # 0.7 L Monocytes # 0.4 Eosinophils # 0.0 Basophils # 0.0 Nucleated Red Blood Cells # 0.0 Sodium Level 140 Potassium Level 3.6 Chloride Level 95 L Carbon Dioxide Level 34 H Anion Gap 15 Blood Urea Nitrogen 33 H Creatinine 0.67 Glucose Level 157 Calcium Level 8.1 L Medications Medications Current Medications Morphine Sulfate (morphine) 2 mg Q4H PRN IV PAIN LEVEL 7-10; Start 05/30/16 at 22:30 Ondansetron HCl (Zofran Inj) 4 mg Q6H PRN IV NAUSEA AND/OR VOMITING; Start at 22:30 Amiodarone HCl (Cordarone) 200 mg BID PO Last administered on 06/05/16 08:29; Admin Dose 200 MG; Start 05/30/16 at 22:30 Atorvastatin Calcium (Lipitor) 20 mg QHS PO Last administered on 06/04/16 21: 07; Admin Dose 20 MG; Start 05/31/16 at 21:00 Clopidogrel Bisulfate (plaVIX) 75 mg DAILY PO Last administered on 06/05/16 08: 29; Admin Dose 75 MG; Start 05/31/16 at 09:00 Furosemide (Lasix) 40 mg DAILY@06 PO Last administered on 06/05/16 05:36; Admin Dose 40 MG; Start 05/31/16 at 06:00 Losartan Potassium (Cozaar) 25 mg DAILY PO Last administered on 05/31/16 08:51 ; Admin Dose 25 MG; Start 05/31/16 at 09:00; Status Future Hold Nitroglycerin (Nitroglycerin (Sl Tab) 0.4 Mg) 1 tab PRN PRN SL CHEST PAIN; Start 05/30/16 at 22:30 Potassium Chloride 10 meq 10 meq AM PO Last administered on 06/05/16 08:29; Admin Dose 10 MEQ; Start 05/31/16 at 09:00 Levofloxacin/ Dextrose (Levaquin 500mg/ D5W 100 ml (Pmx)) 100 ml @ 100 mls/hr Q24H IVPB Last administered on 06/05/16 05:36; Admin Dose 100 MLS/HR; Start at 06:00 Magnesium Hydroxide (Milk Of Mag) 30 ml DAILY PRN PO CONSTIPATION; Start at 07:00 Aspirin (Halfprin) 81 mg DAILY PO Last administered on 06/05/16 08:29; Admin Dose 81 MG; Start 05/31/16 at 09:00 Methylprednisolone Sodium Succinate 80 mg 80 mg Q6 IV Last administered on 12:00; Admin Dose 80 MG; Start 05/31/16 at 18:00 Midazolam HCl 50 ml @ 1 mls/hr TITRATE IV Last administered on 06/05/16 06:45; Admin Dose 7 MLS/HR; Start 05/31/16 at 16:00 Norepinephrine/ Dextrose (Levophed/D5W) 500 ml @ 1.87 mls/hr TITRATE IV Last administered on 05/31/16 19:57; Admin Dose 5.62 MLS/HR; Start 05/31/16 at 19:00 Lorazepam 2 mg 2 mg Q6H PRN IV ANXIETY Last administered on 06/01/16 07:55; Admin Dose 2 MG; Start 05/31/16 at 23:30 Propofol (Diprivan) 100 ml @ 2.964 mls/ hr Q12H IV Last administered on 08:02; Admin Dose 10.078 MLS/HR; Start 06/01/16 at 09:30 IV Flush (NS 10 ml) 10 ml PRN PRN IV IV PROTOCOL; Start 06/01/16 at 13:30 Carvedilol 3.125 mg 3.125 mg BID PO Last administered on 06/05/16 08:29; Admin Dose 3.125 MG; Start 06/02/16 at 21:00 Dexmedetomidine HCl/Sodium Chloride (Precedex/NS) 50 ml @ 0 mls/hr TITRATE IV ; Start 06/05/16 at 10:30 Pantoprazole (Protonix Iv) 40 mg DAILY@06 IV ; Start 06/06/16 at 06:00 MIGUEL ANGEL GAONA June 05, 2016 12:11
[2016-06-05] MEDS: ATORVASTATIN 20 MG TAB PO SCH (20:56)
[2016-06-06] VITALS (36 sets, daily range): BP systolic 96–144; BP diastolic 65–110; PULSE 75–124; RESP 13–29
[2016-06-06] MEDS: METHYLPREDNISOLONE 125 MG INJ IV SCH ×4 (00:15→17:44)
[2016-06-06] MEDS: PROPOFOL 100 ML IV SCH ×2 (02:24→09:22)
[2016-06-06 04:50] LABS: ADD SCAN DIFF NO
[2016-06-06 04:53] LABS: BASOPHILS % 0.1 % (0.0-2.0); HEMATOCRIT 45.8 % (42.0-52.0); HEMOGLOBIN 14.9 g/dl (14.0-18.0); LYMPHOCYTES # 0.7 10^3/ul (0.8-2.9); LYMPHOCYTES % 7.7 % (15.0-51.0); MEAN CORPUSCULAR HEMOGLOBIN 31.5 pg (29.0-33.0); MEAN CORPUSCULAR HGB CONC 32.5 g/dl (32.0-37.0); MEAN CORPUSCULAR VOLUME 96.8 fl (82.0-101.0); MEAN PLATELET VOLUME 11.5 fl (7.4-10.4); MONOCYTE # 0.5 10^3/ul (0.3-0.9); MONOCYTES % 5.8 % (0.0-11.0); NEUTROPHIL # 7.4 10^3/ul (1.6-7.5); NEUTROPHILS % 85.5 % (39.0-77.0); PLATELET COUNT 139 10^3/UL (140-415); RED BLOOD COUNT 4.73 10^6/ul (4.70-6.10); RED CELL DISTRIBUTION WIDTH 14.9 % (11.5-14.5); WHITE BLOOD COUNT 8.6 10^3/ul (4.8-10.8)
[2016-06-06 05:18] LABS: POTASSIUM 3.5 mmol/L (3.5-5.1)
[2016-06-06 05:21] LABS: CALCIUM 8.1 mg/dl (8.4-10.2); CREATININE 0.73 mg/dl (0.61-1.24)
[2016-06-06 05:22] LABS: MAGNESIUM 2.6 mg/dl (1.7-2.5); PHOSPHORUS 4.5 mg/dl (2.5-4.9)
[2016-06-06] MEDS: LEVOFLOXACIN 500MG/D5W (PMX) 100 ML IVPB SCH (05:34)
[2016-06-06] MEDS: PANTOPRAZOLE 40 MG INJ IV SCH (05:34)
[2016-06-06] MEDS: FUROSEMIDE 40 MG TAB PO SCH (05:35)
[2016-06-06] MEDS: MIDAZOLAM (DRIP) 50 mg/50 mL 50 ML IV SCH (06:16)
--- NOTE | 2016-06-06 07:18 | PN ---
Date/Time of Note Date/Time of Note DATE: 06/06/16 TIME: :17 Assessment/Plan VTE Prophylaxis VTE Prophylaxis Intervention: heparin Lines/Catheters IV [facility] PICC Line Central line still needed: Yes Urinary Cath still in place: Yes Reason Cath still needed: other (indicate) Assessment/Plan Chief Complaint/Hosp Course 1. Acute respiratory failure, hypoxic and hypercapnic. Currently intubated. Continue mechanical ventilation. Continue inhaled bronchodilators. The etiology of the patient's acute respiratory failure could be multifactorial including COPD and underlying heart disease. 2. Chronic obstructive pulmonary disease exacerbation. Continue inhaled bronchodilators and tapering dose of steroids. Pulmonary following the patient. 3. Atrial fibrillation with rapid ventricular response. Currently, the rate is controlled. Cardiology following. Continue amiodarone. 4. Recent CAD status post stent placement. Continue antiplatelet therapy. 5. Thrombocytopenia. Monitor for any bleeding. Continue antiplatelet therapy because of recent stent placement to the right coronary artery. 6. Prediabetes. Continue to monitor random blood glucose. If the patient's random blood glucose levels are running high, we will start the patient on insulin sliding scale. 7. Dyslipidemia. Continue statins. 8. Fluid, electrolytes and nutrition. Continue NG tube feedings. 9. Deep venous thrombosis prophylaxis with subQ heparin. 10. Gastrointestinal prophylaxis. Proton pump inhibitors. PLAN: Plan is to continue current management. Weaning off ventilator as per pulmonary. The case was discussed with Dr. Tellez. Critical care time: 45 minutes. Addendum: Had a family meeting with the patient's sister and the patient's nephew. Explained the plan of care to the patient's family. Problems: Subjective 24 Hr Interval Summary Free Text/Dictation No changes in status. Undergoing weaning trails. Exam/Review of Systems Vital Signs Vitals Vital Signs Date Time Temp Pulse Resp B/P Pulse Ox O2 Delivery O2 Flow Rate FiO2 06/06/16 07:00 83 20 106/74 95 Mechanical Ventilator 06/06/16 05:15 55 06/06/16 04:00 99.1 Intake and Output 06/05/16 06/05/16 06/06/16 15:00 23:00 07:00 Intake Total 617.772 ml 570.848 ml 619.860 ml Output Total 750 ml 345 ml 385 ml Balance -132.228 ml 225.848 ml 234.860 ml Exam GENERAL: This is an obese male patient lying in bed, orally intubated. HEENT: Head normocephalic and atraumatic. Eyes: Anicteric sclerae. Conjunctivae clear. ENT: Nasal septum is midline. Oral mucosa is dry. Orally intubated. NG tube in the right naris. RESPIRATORY: Bilateral diminished breath sounds. On AC mode ventilation. CARDIAC: Irregularly irregular rhythm. S1 and S2 heard. ABDOMEN: Soft, nontender and nondistended. Bowel sounds positive in all 4 quadrants. GENITOURINARY: The patient has a Tellez catheter in place. EXTREMITIES: No cyanosis. Bilateral lower extremity trace pedal edema. Peripheral pulses are palpable. NEUROLOGIC: The patient is sedated. Results Result Diagram: 06/06/16 0420 06/06/16 0420 Results 24 hrs Laboratory Tests Test 06/06/16 04:20 White Blood Count 8.6 Red Blood Count 4.73 Hemoglobin 14.9 Hematocrit 45.8 Mean Corpuscular Volume 96.8 Mean Corpuscular Hemoglobin 31.5 Mean Corpuscular Hemoglobin Concent 32.5 Red Cell Distribution Width 14.9 H Platelet Count 139 L Mean Platelet Volume 11.5 H Neutrophils % 85.5 H Lymphocytes % 7.7 L Monocytes % 5.8 Eosinophils % 0.0 Basophils % 0.1 Nucleated Red Blood Cells % 0.0 Neutrophils # 7.4 Lymphocytes # 0.7 L Monocytes # 0.5 Eosinophils # 0.0 Basophils # 0.0 Nucleated Red Blood Cells # 0.0 Sodium Level 143 Potassium Level 3.5 Chloride Level 97 Carbon Dioxide Level 36 H Anion Gap 14 Blood Urea Nitrogen 37 H Creatinine 0.73 Glucose Level 160 Calcium Level 8.1 L Phosphorus Level 4.5 Magnesium Level 2.6 H Medications Medications Current Medications Morphine Sulfate (morphine) 2 mg Q4H PRN IV PAIN LEVEL 7-10; Start 05/30/16 at 22:30 Ondansetron HCl (Zofran Inj) 4 mg Q6H PRN IV NAUSEA AND/OR VOMITING; Start at 22:30 Amiodarone HCl (Cordarone) 200 mg BID PO Last administered on 06/05/16 20:56; Admin Dose 200 MG; Start 05/30/16 at 22:30 Atorvastatin Calcium (Lipitor) 20 mg QHS PO Last administered on 06/05/16 20:56 ; Admin Dose 20 MG; Start 05/31/16 at 21:00 Clopidogrel Bisulfate (plaVIX) 75 mg DAILY PO Last administered on 06/05/16 08: 29; Admin Dose 75 MG; Start 05/31/16 at 09:00 Furosemide (Lasix) 40 mg DAILY@06 PO Last administered on 06/06/16 05:35; Admin Dose 40 MG; Start 05/31/16 at 06:00 Losartan Potassium (Cozaar) 25 mg DAILY PO Last administered on 05/31/16 08:51 ; Admin Dose 25 MG; Start 05/31/16 at 09:00; Status Future Hold Nitroglycerin (Nitroglycerin (Sl Tab) 0.4 Mg) 1 tab PRN PRN SL CHEST PAIN; Start 05/30/16 at 22:30 Potassium Chloride 10 meq 10 meq AM PO Last administered on 06/05/16 08:29; Admin Dose 10 MEQ; Start 05/31/16 at 09:00 Levofloxacin/ Dextrose (Levaquin 500mg/ D5W 100 ml (Pmx)) 100 ml @ 100 mls/hr Q24H IVPB Last administered on 06/06/16 05:34; Admin Dose 100 MLS/HR; Start at 06:00 Magnesium Hydroxide (Milk Of Mag) 30 ml DAILY PRN PO CONSTIPATION; Start at 07:00 Aspirin (Halfprin) 81 mg DAILY PO Last administered on 06/05/16 08:29; Admin Dose 81 MG; Start 05/31/16 at 09:00 Methylprednisolone Sodium Succinate 80 mg 80 mg Q6 IV Last administered on 05:34; Admin Dose 80 MG; Start 05/31/16 at 18:00 Midazolam HCl 50 ml @ 1 mls/hr TITRATE IV Last administered on 06/06/16 06:16; Admin Dose 5 MLS/HR; Start 05/31/16 at 16:00 Norepinephrine/ Dextrose (Levophed/D5W) 500 ml @ 1.87 mls/hr TITRATE IV Last administered on 05/31/16 19:57; Admin Dose 5.62 MLS/HR; Start 05/31/16 at 19:00 Lorazepam 2 mg 2 mg Q6H PRN IV ANXIETY Last administered on 06/01/16 07:55; Admin Dose 2 MG; Start 05/31/16 at 23:30 Propofol (Diprivan) 100 ml @ 2.964 mls/ hr Q12H IV Last administered on 02:24; Admin Dose 11.856 MLS/HR; Start 06/01/16 at 09:30 IV Flush (NS 10 ml) 10 ml PRN PRN IV IV PROTOCOL; Start 06/01/16 at 13:30 Carvedilol 3.125 mg 3.125 mg BID PO Last administered on 06/05/16 20:56; Admin Dose 3.125 MG; Start 06/02/16 at 21:00 Dexmedetomidine HCl/Sodium Chloride (Precedex/NS) 50 ml @ 0 mls/hr TITRATE IV Last administered on 06/06/16 06:48; Admin Dose 4.94 MLS/HR; Start 06/05/16 at 10 :30 Pantoprazole (Protonix Iv) 40 mg DAILY@06 IV Last administered on 06/06/16 05: 34; Admin Dose 40 MG; Start 06/06/16 at 06:00 NELSON BARLOW NP June 06, 2016 07:18
[2016-06-06] MEDS: ASPIRIN (EC) 81 MG TAB PO SCH (08:34)
[2016-06-06] MEDS: CLOPIDOGREL 75 MG TAB PO SCH (08:35)
[2016-06-06] MEDS: AMIODARONE 200 MG TAB PO SCH (08:35)
[2016-06-06] MEDS: POTASSIUM CHLORIDE (SR) 10 MEQ TAB PO SCH (08:35)
[2016-06-06] MEDS: LORAZEPAM 2 MG INJ IV PRN ×2 (08:54→22:43)
--- NOTE | 2016-06-06 09:25 | CONS ---
Date/Time of Note Date/Time of Note DATE: 06/06/16 TIME: 09:23 Consult Date/Type/Reason Admit Date/Time May 30, 2016 at 20:05 Initial Consult Date 05/31/16 Type of Consultation: pulmonary ICU Ordering Provider: BERNARDO PULIDO MD Subjective Patient placed on Precedex, less agitated and more alert and follows simple commands Objective Vital Signs Date Time Temp Pulse Resp B/P Pulse Ox O2 Delivery O2 Flow Rate FiO2 06/06/16 09:00 97 29 130/82 96 Mechanical Ventilator 06/06/16 08:48 40 06/06/16 08:00 98.8 Intake and Output 06/05/16 06/05/16 06/06/16 15:00 23:00 07:00 Intake Total 617.772 ml 570.848 ml 659.860 ml Output Total 750 ml 345 ml 585 ml Balance -132.228 ml 225.848 ml 74.860 ml Exam PHYSICAL EXAMINATION: Well-nourished well-developed gentleman intubated on mechanical ventilation VITAL SIGNS: As above NECK: Supple, no JVD or lymphadenopathy. CARDIAC: S1, S2, no added sounds or murmurs. CHEST: Diminished air entry bilaterally. ABDOMEN: Soft, nontender. No guarding or rebound. EXTREMITIES: No cyanosis, clubbing, edema. NEUROLOGIC: Generalized weakness. Results/Medications Result Diagram: 06/06/16 0420 06/06/16 0420 Results 24 hrs Chest x-ray Clear lung velazco no infiltrates or effusions Laboratory Tests Test 06/06/16 04:20 White Blood Count 8.6 Red Blood Count 4.73 Hemoglobin 14.9 Hematocrit 45.8 Mean Corpuscular Volume 96.8 Mean Corpuscular Hemoglobin 31.5 Mean Corpuscular Hemoglobin Concent 32.5 Red Cell Distribution Width 14.9 H Platelet Count 139 L Mean Platelet Volume 11.5 H Neutrophils % 85.5 H Lymphocytes % 7.7 L Monocytes % 5.8 Eosinophils % 0.0 Basophils % 0.1 Nucleated Red Blood Cells % 0.0 Neutrophils # 7.4 Lymphocytes # 0.7 L Monocytes # 0.5 Eosinophils # 0.0 Basophils # 0.0 Nucleated Red Blood Cells # 0.0 Sodium Level 143 Potassium Level 3.5 Chloride Level 97 Carbon Dioxide Level 36 H Anion Gap 14 Blood Urea Nitrogen 37 H Creatinine 0.73 Glucose Level 160 Calcium Level 8.1 L Phosphorus Level 4.5 Magnesium Level 2.6 H Medications Current Medications Morphine Sulfate (morphine) 2 mg Q4H PRN IV PAIN LEVEL 7-10; Start 05/30/16 at 22:30 Ondansetron HCl (Zofran Inj) 4 mg Q6H PRN IV NAUSEA AND/OR VOMITING; Start at 22:30 Amiodarone HCl (Cordarone) 200 mg BID PO Last administered on 06/06/16 08:35; Admin Dose 200 MG; Start 05/30/16 at 22:30 Atorvastatin Calcium (Lipitor) 20 mg QHS PO Last administered on 06/05/16 20:56 ; Admin Dose 20 MG; Start 05/31/16 at 21:00 Clopidogrel Bisulfate (plaVIX) 75 mg DAILY PO Last administered on 06/06/16 08: 35; Admin Dose 75 MG; Start 05/31/16 at 09:00 Furosemide (Lasix) 40 mg DAILY@06 PO Last administered on 06/06/16 05:35; Admin Dose 40 MG; Start 05/31/16 at 06:00 Losartan Potassium (Cozaar) 25 mg DAILY PO Last administered on 05/31/16 08:51 ; Admin Dose 25 MG; Start 05/31/16 at 09:00; Status Future Hold Nitroglycerin (Nitroglycerin (Sl Tab) 0.4 Mg) 1 tab PRN PRN SL CHEST PAIN; Start 05/30/16 at 22:30 Potassium Chloride 10 meq 10 meq AM PO Last administered on 06/06/16 08:35; Admin Dose 10 MEQ; Start 05/31/16 at 09:00 Levofloxacin/ Dextrose (Levaquin 500mg/ D5W 100 ml (Pmx)) 100 ml @ 100 mls/hr Q24H IVPB Last administered on 06/06/16 05:34; Admin Dose 100 MLS/HR; Start at 06:00 Magnesium Hydroxide (Milk Of Mag) 30 ml DAILY PRN PO CONSTIPATION; Start at 07:00 Aspirin (Halfprin) 81 mg DAILY PO Last administered on 06/06/16 08:34; Admin Dose 81 MG; Start 05/31/16 at 09:00 Methylprednisolone Sodium Succinate 80 mg 80 mg Q6 IV Last administered on 05:34; Admin Dose 80 MG; Start 05/31/16 at 18:00 Midazolam HCl 50 ml @ 1 mls/hr TITRATE IV Last administered on 06/06/16 06:16; Admin Dose 5 MLS/HR; Start 05/31/16 at 16:00 Norepinephrine/ Dextrose (Levophed/D5W) 500 ml @ 1.87 mls/hr TITRATE IV Last administered on 05/31/16 19:57; Admin Dose 5.62 MLS/HR; Start 05/31/16 at 19:00 Lorazepam 2 mg 2 mg Q6H PRN IV ANXIETY Last administered on 06/06/16 08:54; Admin Dose 2 MG; Start 05/31/16 at 23:30 Propofol (Diprivan) 100 ml @ 2.964 mls/ hr Q12H IV Last administered on 09:22; Admin Dose 8.892 MLS/HR; Start 06/01/16 at 09:30 IV Flush (NS 10 ml) 10 ml PRN PRN IV IV PROTOCOL; Start 06/01/16 at 13:30 Carvedilol 3.125 mg 3.125 mg BID PO Last administered on 06/06/16 08:35; Admin Dose 3.125 MG; Start 06/02/16 at 21:00 Dexmedetomidine HCl/Sodium Chloride (Precedex/NS) 50 ml @ 0 mls/hr TITRATE IV Last administered on 06/06/16 06:48; Admin Dose 4.94 MLS/HR; Start 06/05/16 at 10 :30 Pantoprazole (Protonix Iv) 40 mg DAILY@06 IV Last administered on 06/06/16 05: 34; Admin Dose 40 MG; Start 06/06/16 at 06:00 Assessment/Plan Chief Complaint/Hosp Course IMPRESSION AND PLAN: 1. Acute pulmonary edema with hypoxemic respiratory failure 2. History of polysubstance abuse. 3. History of coronary artery disease. 4. Encephalopathy toxic metabolic secondary to substance abuse history The patient will require 1. Continued antibiotics. Trial of Precedex for agitation 2. Continue bronchodilators. 3. Continue supplemental O2. We will attempt CPAP weaning trial 4. Continue steroids. 5. DVT and GI prophylaxis. Critical care time 40 minutes. Problems: [facility] June 06, 2016 09:25
[2016-06-06] MEDS: morphine 2 MG INJ IV PRN ×2 (09:58→14:41)
[2016-06-06 11:13] LABS: AADO2 Arterial 148.8 mmHg (7.0-24.0); Allen Test ACCEPTAB; Arterial Base Excess 11.7 mmol/L (-3.0-3); Arterial COHb 0.3 % (0.0-3.0); Arterial Fraction of Oxyhgb 92.7 % (93.0-99.0); Arterial HCO3 38.9 mmol/L (22.0-26.0); Arterial MetHb 0.4 % (0.0-1.5); Arterial Total Hemglobin 16.8 g/dl (12.0-18.0); Blood Gas PS 10; MODE VENT - CPAP
--- NOTE | 2016-06-06 13:24 | RADRPT ---
PROCEDURE: XR Chest. CLINICAL INDICATION: Dyspnea. CHF. Follow-up TECHNIQUE: Single frontal chest x-ray. COMPARISON: Chest x-ray dated 06/03/2016 FINDINGS: The lungs are clear. No focal opacification is seen. Pulmonary edema seen previously is improved an d now almost completely resolved. The cardiomediastinal silhouette is unremarkable. The osseous str uctures are unremarkable. Endotracheal tube and nasogastric tube are identified in stable and good location, without evidence for pneumothorax. Left-sided PICC line is also in stable and good locatio n with the tip in the superior vena cava. IMPRESSION: 1. Improved and almost completely resolved pulmonary edema. 2. Clear lungs without acute cardiopulmonary process. 3. Stable lines and tubes without evidence for pneumothorax. RPTAT: [id number] .Gautam Buckner MD, Date Time Electronically viewed and signed by .Gautam Buckner MD, on 06/06/2016 13:23 .B/
--- NOTE | 2016-06-06 15:00 | CONS ---
DATE OF ADMISSION: 05/30/2016 DATE OF CONSULTATION: 06/06/2016 TYPE OF CONSULTATION: Palliative Care REFERRING CLINICIAN: Tlyer Meléndez NP HISTORY OF PRESENT ILLNESS: This is a 61-year-old gentleman who has had multiple admissions to hosp itals per family members in the past with exacerbation of COPD. Apparently, he does not take care o f himself and continues to smoke in spite of the fact that he has had these recurrent exacerbations of COPD. He also has a history of coronary heart disease per reading patient's chart. The patient cannot participate at this time, he is on a ventilator. He developed chest pain, presented to the e merg[facility] room at [facility], was admitted for acute coronary syndrome in a gentlem an who has a baseline history of coronary artery disease. He was also found to be in atrial fibrill ation. In-house he deteriorated, has been seen by pulmonary medicine. He developed worsening short ness of breath secondary to severe COPD, was transferred to the intensive care unit, was intubated. He currently is undergoing a trial of CPAP and in all likelihood will be extubated today. MEDICATIONS: Please refer to reconciliation sheets. ALLERGIES: NO KNOWN DRUG ALLERGIES. MAJOR MEDICAL PROBLEMS IN THE PAST: Primarily as per history of present illness. SOCIAL HISTORY: Unknown at this time, the patient is currently intubated. FAMILY HISTORY: Unknown. REVIEW OF SYSTEMS: Cannot be obtained. DISCUSSION: Tyler Meléndez NP and myself sat down speak to family members, patient's sister and nep hew. First of all, they do not have any paperwork to allow them to obtain information on patient's current medical condition, especially since he will probably be extubated today and if he is in agre ement we could talk to them at that time. This has been explained to them in detail. Therefore, an extensive palliative care note will be deferred at this time until patient is awake and we could di scuss his ongoing wishes and who will participate in his care and decision making in the future. Th erefore, acceptable quality of life, cultural issues, communication, past experiences with an acute medical illness will be addressed with the patient. Goals of care will be discussed with him and si nce he is so ill at this time, a PPS is not appropriate. The patient will be counseled about his sm oking history. Psychosocial, social and spiritual issues will be addressed. At this time, it is no t indicated or ethical or legal to speak to family members until we have more information. Code st atus is FULL. POLST form definitely needs to be addressed with the patient prior to discharge. Dictated By: GARLAND VITALE MD LP/NTS Conf#: [id number] DID#: [id number]
[2016-06-06] MEDS ORDERED: DILTIAZEM-D5W 125MG/125ML DRIP 125 ML ONE (16:48)
[2016-06-06] MEDS ORDERED: DILTIAZEM-D5W 125MG/125ML DRIP 125 ML IV SCH (17:00)
[2016-06-06] MEDS: DOCUSATE SODIUM 10 MG/ML (10ML CUP) NGT SCH (21:45)
[2016-06-06] MEDS: ATORVASTATIN 20 MG TAB PO SCH (21:45)
[2016-06-06] MEDS ORDERED: HALOPERIDOL 5 MG INJ IV ONE (23:00)
[2016-06-06] MEDS ORDERED: CHLORDIAZEPOXIDE 25 MG CAP PO ONE (23:30)
[2016-06-07] VITALS (28 sets, daily range): BP systolic 95–133; BP diastolic 61–98; PULSE 81–112; RESP 14–30
[2016-06-07] MEDS: METHYLPREDNISOLONE 125 MG INJ IV SCH ×2 (00:09→05:22)
[2016-06-07 04:20] LABS: ADD SCAN DIFF NO
[2016-06-07 04:37] LABS: POTASSIUM 3.2 mmol/L (3.5-5.1)
[2016-06-07 04:39] LABS: CREATININE 0.75 mg/dl (0.61-1.24)
[2016-06-07 04:53] LABS: BASOPHILS % 0.1 % (0.0-2.0); HEMATOCRIT 48.1 % (42.0-52.0); HEMOGLOBIN 15.4 g/dl (14.0-18.0); LYMPHOCYTES # 0.9 10^3/ul (0.8-2.9); LYMPHOCYTES % 7.5 % (15.0-51.0); MEAN CORPUSCULAR HEMOGLOBIN 31.1 pg (29.0-33.0); MEAN CORPUSCULAR VOLUME 97.2 fl (82.0-101.0); MEAN PLATELET VOLUME 11.6 fl (7.4-10.4); MONOCYTE # 0.6 10^3/ul (0.3-0.9); NEUTROPHILS % 86.1 % (39.0-77.0); PLATELET COUNT 137 10^3/UL (140-415); RED BLOOD COUNT 4.95 10^6/ul (4.70-6.10); RED CELL DISTRIBUTION WIDTH 14.8 % (11.5-14.5); WHITE BLOOD COUNT 11.6 10^3/ul (4.8-10.8)
[2016-06-07] MEDS: LORAZEPAM 2 MG INJ IV PRN (04:56)
[2016-06-07] MEDS ORDERED: POTASSIUM CHLORIDE 250 ML IVPB ONE (05:00)
[2016-06-07] MEDS: LEVOFLOXACIN 500MG/D5W (PMX) 100 ML IVPB SCH (05:21)
[2016-06-07] MEDS: FUROSEMIDE 40 MG TAB PO SCH (05:22)
[2016-06-07] MEDS: PANTOPRAZOLE 40 MG INJ IV SCH (05:22)
[2016-06-07] MEDS: CHLORDIAZEPOXIDE 25 MG CAP PO PRN ×2 (05:58→14:39)
[2016-06-07 08:06] LABS: AADO2 Arterial 116.4 mmHg (7.0-24.0); Allen Test ACCEPTAB; Arterial Base Excess 8.4 mmol/L (-3.0-3); Arterial COHb 0.4 % (0.0-3.0); Arterial Fraction of Oxyhgb 93.8 % (93.0-99.0); Arterial HCO3 35.2 mmol/L (22.0-26.0); Arterial MetHb 0.3 % (0.0-1.5); Arterial Total Hemglobin 17.2 g/dl (12.0-18.0); MODE NASAL CANNULA
[2016-06-07] MEDS: CLOPIDOGREL 75 MG TAB PO SCH (08:20)
[2016-06-07] MEDS: ASPIRIN (EC) 81 MG TAB PO SCH (08:20)
[2016-06-07] MEDS: POTASSIUM CHLORIDE (SR) 10 MEQ TAB PO SCH (08:20)
[2016-06-07] MEDS: morphine 2 MG INJ IV PRN ×3 (08:32→22:01)
--- NOTE | 2016-06-07 08:45 | RADRPT ---
PROCEDURE: Chest Radiograph. CLINICAL INDICATION: Pneumonia. CHF. TECHNIQUE: Single frontal chest radiograph. COMPARISON: Chest radiograph 06/06/2016 FINDINGS: There has been interval removal of endotracheal tube. A nasogastric tube remains in place though th e distal tip is below the inferior portions of the image. A left upper extremity PICC is unchanged. The heart is magnified and may be enlarged.. No infiltrate or effusion is seen. The bones are intact. IMPRESSION: 1. Interval removal of endotracheal tube. 2. Otherwise stable radiographic appearance of chest compared to 06/06/2016. RPTAT: KK .Omar Diego MD, MD Date Time Electronically viewed and signed by .Omar Diego MD, on 06/07/2016 08:45 .B/
[2016-06-07] MEDS: DOCUSATE SODIUM 10 MG/ML (10ML CUP) NGT SCH ×2 (09:00→22:00)
[2016-06-07] MEDS ORDERED: MULTIVITAMINS 10 ML, THIAMINE 100 MG, FOLIC ACID 1 MG in SOD CHLORIDE 0.9% 1,000 ML IVPB SCH (09:00)
[2016-06-07] MEDS ORDERED: CHLORDIAZEPOXIDE 25 MG CAP PO SCH (09:00)
--- NOTE | 2016-06-07 09:49 | PN ---
Date/Time of Note Date/Time of Note DATE: 06/07/16 TIME: 09:44 Assessment/Plan VTE Prophylaxis VTE Prophylaxis Intervention: heparin Lines/Catheters IV Catheter Type (from Rust): PICC Line Central line still needed: Yes Urinary Cath still in place: Yes Reason Cath still needed: other (indicate) Assessment/Plan Chief Complaint/Hosp Course 1. Acute respiratory failure, hypoxic and hypercapnic. Status post intubation. Extubated on 06/06/2016. Continue inhaled bronchodilators. The etiology of the patient's acute respiratory failure could be multifactorial including COPD and underlying heart disease. 2. Chronic obstructive pulmonary disease exacerbation. Continue inhaled bronchodilators and tapering dose of steroids. Pulmonary following the patient. 3. Atrial fibrillation with rapid ventricular response. Currently, the rate is controlled. Cardiology following. Continue amiodarone. 4. Recent CAD status post stent placement. Continue antiplatelet therapy. 5. Thrombocytopenia. Monitor for any bleeding. Continue antiplatelet therapy because of recent stent placement to the right coronary artery. 6. Prediabetes. Continue to monitor random blood glucose. If the patient's random blood glucose levels are running high, we will start the patient on insulin sliding scale. 7. Dyslipidemia. Continue statins. 8. Possible alcohol withdrawal. Patient was started on Librium. In any one-to -one sitter. 9. Fluid, electrolytes and nutrition. Pured diet. 10. Deep venous thrombosis prophylaxis with subQ heparin. 10. Gastrointestinal prophylaxis. Proton pump inhibitors. PLAN: Continue current management. Replete potassium. The case was discussed with Dr. Tellez. Critical care time: 35 minutes. Problems: Subjective 24 Hr Interval Summary Free Text/Dictation The patient is currently extubated. Very demanding. The patient has a one-to- one corporate safety director. Exam/Review of Systems Vital Signs Vitals Vital Signs Date Time Temp Pulse Resp B/P Pulse Ox O2 Delivery O2 Flow Rate FiO2 06/07/16 07:55 97.6 82 20 108/71 97 06/07/16 06:00 Venturi Mask 06/07/16 04:51 15.0 50 Intake and Output 06/06/16 06/06/16 06/07/16 15:00 23:00 07:00 Intake Total 180 ml 215 ml 110 ml Output Total 520 ml 225 ml 1000 ml Balance -340 ml -10 ml -890 ml Exam GENERAL: This is an obese male patient lying in bed in no apparent distress. HEENT: Head normocephalic and atraumatic. Eyes: Anicteric sclerae. Conjunctivae clear. ENT: Nasal septum is midline. Oral mucosa is dry. Orally intubated. NG tube in the right naris. RESPIRATORY: Bilateral diminished breath sounds. CARDIAC: Irregularly irregular rhythm. S1 and S2 heard. ABDOMEN: Soft, nontender and nondistended. Bowel sounds positive in all 4 quadrants. GENITOURINARY: The patient has a Tellez catheter in place. EXTREMITIES: No cyanosis. Bilateral lower extremity trace pedal edema. Peripheral pulses are palpable. NEUROLOGIC: The patient is awake and alert. Oriented X 2. Moves all four extremities. Results Result Diagram: 06/07/16 0400 06/07/16 0400 Results 24 hrs Laboratory Tests Test 06/06/16 11:00 06/07/16 04:00 06/07/16 07:00 Blood Gas Specimen Source Blood arterial Blood arterial Arterial Blood Date Drawn 06/06/2016 10:50:21 AM 06/07/2016 7:40:37 AM Arterial Blood pH (Temp corrected) 7.437 7.419 Arterial Blood pCO2 (Temp correct) 59.0 H 55.7 H Arterial Blood pO2 (Temp corrected) 68.6 L 75.7 L Arterial Blood HCO3 38.9 H 35.2 H Arterial Blood Base Excess 11.7 H 8.4 H Arterial Blood Oxygen Saturation 93.4 L 94.5 L Jayro Test ACCEPTAB ACCEPTAB Arterial Blood Gas Puncture Site Right Radial Right Radial Arterial Blood Carboxyhemoglobin 0.3 0.4 Arterial Blood Methemoglobin 0.4 0.3 Blood Gas A-a O2 Differential 148.8 H 116.4 H Oxyhemoglobin Percent 92.7 L 93.8 Total Hemoglobin 16.8 17.2 Blood Gas Temperature 37.0 37.0 Blood Gas Actual Respiration Rate 19 Blood Gas Modality VENT - CPAP NASAL CANNULA FiO2 40.0 36.0 Blood Gas Low PEEP Setting 5.0 Blood Gas Pressure Support 10 Blood Gas Notified Whom ELISSA BOWERS Blood Gas Notified Time 06/06/2016 11:13:07 AM 06/07/2016 8:06:12 AM White Blood Count 11.6 #H Red Blood Count 4.95 Hemoglobin 15.4 Hematocrit 48.1 Mean Corpuscular Volume 97.2 Mean Corpuscular Hemoglobin 31.1 Mean Corpuscular Hemoglobin Concent 32.0 Red Cell Distribution Width 14.8 H Platelet Count 137 L Mean Platelet Volume 11.6 H Neutrophils % 86.1 H Lymphocytes % 7.5 L Monocytes % 5.0 Eosinophils % 0.0 Basophils % 0.1 Nucleated Red Blood Cells % 0.0 Neutrophils # 10.0 H Lymphocytes # 0.9 Monocytes # 0.6 Eosinophils # 0.0 Basophils # 0.0 Nucleated Red Blood Cells # 0.0 Sodium Level 147 H Potassium Level 3.2 L Chloride Level 98 Carbon Dioxide Level 40 H Anion Gap 12 Blood Urea Nitrogen 42 H Creatinine 0.75 Glucose Level 139 Calcium Level 8.0 L Magnesium Level 2.4 Medications Medications Current Medications Morphine Sulfate (morphine) 2 mg Q4H PRN IV PAIN LEVEL 7-10 Last administered on 06/07/16 08:32; Admin Dose 2 MG; Start 05/30/16 at 22:30 Ondansetron HCl (Zofran Inj) 4 mg Q6H PRN IV NAUSEA AND/OR VOMITING; Start at 22:30 Atorvastatin Calcium (Lipitor) 20 mg QHS PO Last administered on 06/06/16 21:45 ; Admin Dose 20 MG; Start 05/31/16 at 21:00 Clopidogrel Bisulfate (plaVIX) 75 mg DAILY PO Last administered on 06/07/16 08: 20; Admin Dose 75 MG; Start 05/31/16 at 09:00 Furosemide (Lasix) 40 mg DAILY@06 PO Last administered on 06/07/16 05:22; Admin Dose 40 MG; Start 05/31/16 at 06:00 Losartan Potassium (Cozaar) 25 mg DAILY PO Last administered on 05/31/16 08:51 ; Admin Dose 25 MG; Start 05/31/16 at 09:00; Status Future Hold Nitroglycerin (Nitroglycerin (Sl Tab) 0.4 Mg) 1 tab PRN PRN SL CHEST PAIN; Start 05/30/16 at 22:30 Potassium Chloride 10 meq 10 meq AM PO Last administered on 06/07/16 08:20; Admin Dose 10 MEQ; Start 05/31/16 at 09:00 Levofloxacin/ Dextrose (Levaquin 500mg/ D5W 100 ml (Pmx)) 100 ml @ 100 mls/hr Q24H IVPB Last administered on 06/07/16 05:21; Admin Dose 100 MLS/HR; Start at 06:00 Magnesium Hydroxide (Milk Of Mag) 30 ml DAILY PRN PO CONSTIPATION; Start at 07:00 Aspirin (Halfprin) 81 mg DAILY PO Last administered on 06/07/16 08:20; Admin Dose 81 MG; Start 05/31/16 at 09:00 Methylprednisolone Sodium Succinate 80 mg 80 mg Q6 IV Last administered on 05:22; Admin Dose 80 MG; Start 05/31/16 at 18:00 Midazolam HCl 50 ml @ 1 mls/hr TITRATE IV Last administered on 06/06/16 06:16; Admin Dose 5 MLS/HR; Start 05/31/16 at 16:00 Norepinephrine/ Dextrose (Levophed/D5W) 500 ml @ 1.87 mls/hr TITRATE IV Last administered on 05/31/16 19:57; Admin Dose 5.62 MLS/HR; Start 05/31/16 at 19:00 Lorazepam 2 mg 2 mg Q6H PRN IV ANXIETY Last administered on 06/07/16 04:56; Admin Dose 2 MG; Start 05/31/16 at 23:30 Propofol (Diprivan) 100 ml @ 2.964 mls/ hr Q12H IV Last administered on 09:22; Admin Dose 8.892 MLS/HR; Start 06/01/16 at 09:30 IV Flush (NS 10 ml) 10 ml PRN PRN IV IV PROTOCOL; Start 06/01/16 at 13:30 Carvedilol 3.125 mg 3.125 mg BID PO Last administered on 06/07/16 08:22; Admin Dose 3.125 MG; Start 06/02/16 at 21:00 Dexmedetomidine HCl/Sodium Chloride (Precedex/NS) 50 ml @ 0 mls/hr TITRATE IV Last administered on 06/06/16 06:48; Admin Dose 4.94 MLS/HR; Start 06/05/16 at 10 :30 Pantoprazole 40 mg 40 mg DAILY@06 IV Last administered on 06/07/16 05:22; Admin Dose 40 MG; Start 06/06/16 at 06:00 Diltiazem HCl (Cardizem-D5W 125 Mg/125 ml Drip) 125 ml @ 5 mls/hr TITRATE IV Last administered on 06/06/16 16:52; Admin Dose 5 MLS/HR; Start 06/06/16 at 17:00 Docusate Sodium 100 mg 100 mg BID NGT Last administered on 06/06/16 21:45; Admin Dose 100 MG; Start 06/06/16 at 21:00 Multivitamins/ Thiamine HCl/ Folic Acid/Sodium Chloride (Mvi Adult/ Vitamin B1/ Folic Acid/NS) 1,011.2 ml @ 75 mls/hr DAILY@09 IVPB ; Start 06/07/16 at 09:00 Chlordiazepoxide (Librium) 100 mg Q8H PRN PO AGITATION Last administered on 06/07 05:58; Admin Dose 100 MG; Start 06/06/16 at 23:30 NELSON BARLOW NP June 07, 2016 09:49
--- NOTE | 2016-06-07 10:18 | CONS ---
Date/Time of Note Date/Time of Note DATE: 06/07/16 TIME: 10:15 Consult Date/Type/Reason Admit Date/Time May 30, 2016 at 20:05 Initial Consult Date 05/31/16 Type of Consultation: pulmonary ICU Ordering Provider: BERNARDO PULIDO MD Subjective Patient remains intermittently agitated following extubation No respiratory distress Response to questions this morning Past swallow evaluation Objective Vital Signs Date Time Temp Pulse Resp B/P Pulse Ox O2 Delivery O2 Flow Rate FiO2 06/07/16 07:55 97.6 82 20 108/71 97 06/07/16 06:00 Venturi Mask 06/07/16 04:51 15.0 50 Intake and Output 06/06/16 06/06/16 06/07/16 15:00 23:00 07:00 Intake Total 180 ml 215 ml 110 ml Output Total 520 ml 225 ml 1000 ml Balance -340 ml -10 ml -890 ml Exam PHYSICAL EXAMINATION: Well-nourished well-developed gentleman on nasal cannula oxygen VITAL SIGNS: As above NECK: Supple, no JVD or lymphadenopathy. CARDIAC: S1, S2, no added sounds or murmurs. CHEST: Diminished air entry bilaterally. ABDOMEN: Soft, nontender. No guarding or rebound. EXTREMITIES: No cyanosis, clubbing, edema. NEUROLOGIC: Generalized weakness. Results/Medications Result Diagram: 06/07/16 0400 06/07/16 0400 Results 24 hrs Laboratory Tests Test 06/06/16 11:00 06/07/16 04:00 06/07/16 07:00 Blood Gas Specimen Source Blood arterial Blood arterial Arterial Blood Date Drawn 06/06/2016 10:50:21 AM 06/07/2016 7:40:37 AM Arterial Blood pH (Temp corrected) 7.437 7.419 Arterial Blood pCO2 (Temp correct) 59.0 H 55.7 H Arterial Blood pO2 (Temp corrected) 68.6 L 75.7 L Arterial Blood HCO3 38.9 H 35.2 H Arterial Blood Base Excess 11.7 H 8.4 H Arterial Blood Oxygen Saturation 93.4 L 94.5 L Jayro Test ACCEPTAB ACCEPTAB Arterial Blood Gas Puncture Site Right Radial Right Radial Arterial Blood Carboxyhemoglobin 0.3 0.4 Arterial Blood Methemoglobin 0.4 0.3 Blood Gas A-a O2 Differential 148.8 H 116.4 H Oxyhemoglobin Percent 92.7 L 93.8 Total Hemoglobin 16.8 17.2 Blood Gas Temperature 37.0 37.0 Blood Gas Actual Respiration Rate 19 Blood Gas Modality VENT - CPAP NASAL CANNULA FiO2 40.0 36.0 Blood Gas Low PEEP Setting 5.0 Blood Gas Pressure Support 10 Blood Gas Notified Whom ELISSA BOWERS Blood Gas Notified Time 06/06/2016 11:13:07 AM 06/07/2016 8:06:12 AM White Blood Count 11.6 #H Red Blood Count 4.95 Hemoglobin 15.4 Hematocrit 48.1 Mean Corpuscular Volume 97.2 Mean Corpuscular Hemoglobin 31.1 Mean Corpuscular Hemoglobin Concent 32.0 Red Cell Distribution Width 14.8 H Platelet Count 137 L Mean Platelet Volume 11.6 H Neutrophils % 86.1 H Lymphocytes % 7.5 L Monocytes % 5.0 Eosinophils % 0.0 Basophils % 0.1 Nucleated Red Blood Cells % 0.0 Neutrophils # 10.0 H Lymphocytes # 0.9 Monocytes # 0.6 Eosinophils # 0.0 Basophils # 0.0 Nucleated Red Blood Cells # 0.0 Sodium Level 147 H Potassium Level 3.2 L Chloride Level 98 Carbon Dioxide Level 40 H Anion Gap 12 Blood Urea Nitrogen 42 H Creatinine 0.75 Glucose Level 139 Calcium Level 8.0 L Magnesium Level 2.4 Medications Current Medications Morphine Sulfate (morphine) 2 mg Q4H PRN IV PAIN LEVEL 7-10 Last administered on 06/07/16 08:32; Admin Dose 2 MG; Start 05/30/16 at 22:30 Ondansetron HCl (Zofran Inj) 4 mg Q6H PRN IV NAUSEA AND/OR VOMITING; Start at 22:30 Atorvastatin Calcium (Lipitor) 20 mg QHS PO Last administered on 06/06/16 21:45 ; Admin Dose 20 MG; Start 05/31/16 at 21:00 Clopidogrel Bisulfate (plaVIX) 75 mg DAILY PO Last administered on 06/07/16 08: 20; Admin Dose 75 MG; Start 05/31/16 at 09:00 Furosemide (Lasix) 40 mg DAILY@06 PO Last administered on 06/07/16 05:22; Admin Dose 40 MG; Start 05/31/16 at 06:00 Losartan Potassium (Cozaar) 25 mg DAILY PO Last administered on 05/31/16 08:51 ; Admin Dose 25 MG; Start 05/31/16 at 09:00; Status Future Hold Nitroglycerin (Nitroglycerin (Sl Tab) 0.4 Mg) 1 tab PRN PRN SL CHEST PAIN; Start 05/30/16 at 22:30 Potassium Chloride 10 meq 10 meq AM PO Last administered on 06/07/16 08:20; Admin Dose 10 MEQ; Start 05/31/16 at 09:00 Levofloxacin/ Dextrose (Levaquin 500mg/ D5W 100 ml (Pmx)) 100 ml @ 100 mls/hr Q24H IVPB Last administered on 06/07/16 05:21; Admin Dose 100 MLS/HR; Start at 06:00 Magnesium Hydroxide (Milk Of Mag) 30 ml DAILY PRN PO CONSTIPATION; Start at 07:00 Aspirin (Halfprin) 81 mg DAILY PO Last administered on 06/07/16 08:20; Admin Dose 81 MG; Start 05/31/16 at 09:00 Methylprednisolone Sodium Succinate 80 mg 80 mg Q6 IV Last administered on 05:22; Admin Dose 80 MG; Start 05/31/16 at 18:00 Midazolam HCl 50 ml @ 1 mls/hr TITRATE IV Last administered on 06/06/16 06:16; Admin Dose 5 MLS/HR; Start 05/31/16 at 16:00 Norepinephrine/ Dextrose (Levophed/D5W) 500 ml @ 1.87 mls/hr TITRATE IV Last administered on 05/31/16 19:57; Admin Dose 5.62 MLS/HR; Start 05/31/16 at 19:00 Lorazepam 2 mg 2 mg Q6H PRN IV ANXIETY Last administered on 06/07/16 04:56; Admin Dose 2 MG; Start 05/31/16 at 23:30 Propofol (Diprivan) 100 ml @ 2.964 mls/ hr Q12H IV Last administered on 09:22; Admin Dose 8.892 MLS/HR; Start 06/01/16 at 09:30 IV Flush (NS 10 ml) 10 ml PRN PRN IV IV PROTOCOL; Start 06/01/16 at 13:30 Carvedilol 3.125 mg 3.125 mg BID PO Last administered on 06/07/16 08:22; Admin Dose 3.125 MG; Start 06/02/16 at 21:00 Dexmedetomidine HCl/Sodium Chloride (Precedex/NS) 50 ml @ 0 mls/hr TITRATE IV Last administered on 06/06/16 06:48; Admin Dose 4.94 MLS/HR; Start 06/05/16 at 10 :30 Pantoprazole 40 mg 40 mg DAILY@06 IV Last administered on 06/07/16 05:22; Admin Dose 40 MG; Start 06/06/16 at 06:00 Diltiazem HCl (Cardizem-D5W 125 Mg/125 ml Drip) 125 ml @ 5 mls/hr TITRATE IV Last administered on 06/06/16 16:52; Admin Dose 5 MLS/HR; Start 06/06/16 at 17:00 Docusate Sodium 100 mg 100 mg BID NGT Last administered on 06/06/16 21:45; Admin Dose 100 MG; Start 06/06/16 at 21:00 Multivitamins/ Thiamine HCl/ Folic Acid/Sodium Chloride (Mvi Adult/ Vitamin B1/ Folic Acid/NS) 1,011.2 ml @ 75 mls/hr DAILY@09 IVPB ; Start 06/07/16 at 09:00 Chlordiazepoxide (Librium) 100 mg Q8H PRN PO AGITATION Last administered on 06/07 05:58; Admin Dose 100 MG; Start 06/06/16 at 23:30 Assessment/Plan Chief Complaint/Hosp Course IMPRESSION AND PLAN: 1. Acute pulmonary edema with hypoxemic respiratory failure 2. History of polysubstance abuse. 3. History of coronary artery disease. 4. Encephalopathy toxic metabolic secondary to substance abuse history The patient will require 1. Continued antibiotics. Consider de-escalation soon 2. Continue bronchodilators. 3. Continue supplemental O2. Aspiration precautions 4. Decrease steroids 5. DVT and GI prophylaxis. Transfer to telemetry Problems: [facility] June 07, 2016 10:18
--- NOTE | 2016-06-07 15:45 | CONS ---
Date/Time of Note Date/Time of Note DATE: 06/07/16 TIME: 15:41 Assessment/Plan Assessment/Plan Chief Complaint/Hosp Course IMPRESSION: 1. Atrial fibrillation-Rate controlled 2. Abnormal electrocardiogram, assess for acute coronary syndrome.-negative troponin x 3 3. Respiratory failure, assess for congestive heart failure. 4. History of percutaneous transluminal coronary angioplasty and stent placement 1 week prior at [facility] on aspirin and Plavix. 5. Hypotension. 6. Probable chronic obstructive pulmonary disease by history and chest x-ray findings. 7. Hyponatremia-improved 8. Respiratory failure s/p extubation Recc: -Tele -serial ecg -Change coreg to B1 selective BB -Continue amio -Continue asa/plavix/SQ heparin q8 -Continue abx's/steroids/bronchodilators -F/U cx data Problems: Consultation Date/Type/Reason Admit Date/Time May 30, 2016 at 20:05 Initial Consult Date 05/31/16 Type of Consultation: Cardiology Reason for Consultation AF Referring Provider: BERNARDO PULIDO MD Exam/Review of Systems Vital Signs Vitals Vital Signs Date Time Temp Pulse Resp B/P Pulse Ox O2 Delivery O2 Flow Rate FiO2 06/07/16 14:30 94 16 116/81 98 Nasal Cannula 06/07/16 13:58 6.0 06/07/16 12:00 98.2 06/07/16 04:51 50 Intake and Output 06/06/16 06/06/16 06/07/16 15:00 23:00 07:00 Intake Total 180 ml 215 ml 110 ml Output Total 520 ml 225 ml 1000 ml Balance -340 ml -10 ml -890 ml Exam Review of Systems: CONSTITUTIONAL: No fevers, chills. PULMONARY: No sob CARDIOVASCULAR: No chest pain/palpitations GASTROINTESTINAL: No nausea/vomiting. GENITOURINARY: No hematuria/dysuria. MUSCULOSKELETAL: No myagias/arthalgias. PSYCHIATRIC: The patient denies depression. NEUROLOGIC: No weakness Constitutional: alert, oriented Psych: no complaints Head: normocephalic ENMT: mucosa pink and moist Neck: jvd, supple Respiratory: diminished breath sounds Cardiovascular: regular rate and rhythm Gastrointestinal: non-tender, soft Musculoskeletal: muscle tone (normal) Extremities: pitting pedal edema (bilateral) Neurological: other (No focal deficits) Results Result Diagram: 06/07/16 0400 06/07/16 0400 Results 24 hrs Laboratory Tests Test 06/07/16 04:00 06/07/16 07:00 White Blood Count 11.6 #H Red Blood Count 4.95 Hemoglobin 15.4 Hematocrit 48.1 Mean Corpuscular Volume 97.2 Mean Corpuscular Hemoglobin 31.1 Mean Corpuscular Hemoglobin Concent 32.0 Red Cell Distribution Width 14.8 H Platelet Count 137 L Mean Platelet Volume 11.6 H Neutrophils % 86.1 H Lymphocytes % 7.5 L Monocytes % 5.0 Eosinophils % 0.0 Basophils % 0.1 Nucleated Red Blood Cells % 0.0 Neutrophils # 10.0 H Lymphocytes # 0.9 Monocytes # 0.6 Eosinophils # 0.0 Basophils # 0.0 Nucleated Red Blood Cells # 0.0 Sodium Level 147 H Potassium Level 3.2 L Chloride Level 98 Carbon Dioxide Level 40 H Anion Gap 12 Blood Urea Nitrogen 42 H Creatinine 0.75 Glucose Level 139 Calcium Level 8.0 L Magnesium Level 2.4 Blood Gas Specimen Source Blood arterial Arterial Blood Date Drawn 06/07/2016 7:40:37 AM Arterial Blood pH (Temp corrected) 7.419 Arterial Blood pCO2 (Temp correct) 55.7 H Arterial Blood pO2 (Temp corrected) 75.7 L Arterial Blood HCO3 35.2 H Arterial Blood Base Excess 8.4 H Arterial Blood Oxygen Saturation 94.5 L Jayro Test ACCEPTAB Arterial Blood Gas Puncture Site Right Radial Arterial Blood Carboxyhemoglobin 0.4 Arterial Blood Methemoglobin 0.3 Blood Gas A-a O2 Differential 116.4 H Oxyhemoglobin Percent 93.8 Total Hemoglobin 17.2 Blood Gas Temperature 37.0 Blood Gas Modality NASAL CANNULA FiO2 36.0 Blood Gas Notified Whom JLD Blood Gas Notified Time 06/07/2016 8:06:12 AM Medications Medications Current Medications Morphine Sulfate (morphine) 2 mg Q4H PRN IV PAIN LEVEL 7-10 Last administered on 06/07/16 08:32; Admin Dose 2 MG; Start 05/30/16 at 22:30 Ondansetron HCl (Zofran Inj) 4 mg Q6H PRN IV NAUSEA AND/OR VOMITING; Start at 22:30 Atorvastatin Calcium (Lipitor) 20 mg QHS PO Last administered on 06/06/16 21:45 ; Admin Dose 20 MG; Start 05/31/16 at 21:00 Clopidogrel Bisulfate (plaVIX) 75 mg DAILY PO Last administered on 06/07/16 08: 20; Admin Dose 75 MG; Start 05/31/16 at 09:00 Furosemide (Lasix) 40 mg DAILY@06 PO Last administered on 06/07/16 05:22; Admin Dose 40 MG; Start 05/31/16 at 06:00 Losartan Potassium (Cozaar) 25 mg DAILY PO Last administered on 05/31/16 08:51 ; Admin Dose 25 MG; Start 05/31/16 at 09:00; Status Future Hold Nitroglycerin (Nitroglycerin (Sl Tab) 0.4 Mg) 1 tab PRN PRN SL CHEST PAIN; Start 05/30/16 at 22:30 Potassium Chloride 10 meq 10 meq AM PO Last administered on 06/07/16 08:20; Admin Dose 10 MEQ; Start 05/31/16 at 09:00 Levofloxacin/ Dextrose (Levaquin 500mg/ D5W 100 ml (Pmx)) 100 ml @ 100 mls/hr Q24H IVPB Last administered on 06/07/16 05:21; Admin Dose 100 MLS/HR; Start at 06:00 Magnesium Hydroxide (Milk Of Mag) 30 ml DAILY PRN PO CONSTIPATION; Start at 07:00 Aspirin (Halfprin) 81 mg DAILY PO Last administered on 06/07/16 08:20; Admin Dose 81 MG; Start 05/31/16 at 09:00 Lorazepam (Ativan) 2 mg Q6H PRN IV ANXIETY Last administered on 06/07/16 04:56 ; Admin Dose 2 MG; Start 05/31/16 at 23:30 IV Flush (NS 10 ml) 10 ml PRN PRN IV IV PROTOCOL; Start 06/01/16 at 13:30 Carvedilol (Coreg) 3.125 mg BID PO Last administered on 06/07/16 08:22; Admin Dose 3.125 MG; Start 06/02/16 at 21:00 Pantoprazole (Protonix Iv) 40 mg DAILY@06 IV Last administered on 06/07/16 05: 22; Admin Dose 40 MG; Start 06/06/16 at 06:00 Docusate Sodium 100 mg 100 mg BID NGT Last administered on 06/07/16 09:00; Admin Dose 100 MG; Start 06/06/16 at 21:00 Multivitamins/ Thiamine HCl/ Folic Acid/Sodium Chloride (Mvi Adult/ Vitamin B1/ Folic Acid/NS) 1,011.2 ml @ 75 mls/hr DAILY@09 IVPB ; Start 06/07/16 at 09:00 Chlordiazepoxide (Librium) 100 mg Q8H PRN PO AGITATION Last administered on 06/07 14:39; Admin Dose 100 MG; Start 06/06/16 at 23:30 Methylprednisolone Sodium Succinate (Solu-Medrol) 40 mg DAILY IV ; Start at 09:00 MIGUEL ANGEL GAONA June 07, 2016 15:45
[2016-06-07] MEDS: ATORVASTATIN 20 MG TAB PO SCH (22:01)
[2016-06-08] VITALS (12 sets, daily range): BP systolic 110–136; BP diastolic 70–91; PULSE 75–132; RESP 17–20
[2016-06-08] MEDS: PANTOPRAZOLE 40 MG INJ IV SCH (06:18)
[2016-06-08] MEDS: LEVOFLOXACIN 500MG/D5W (PMX) 100 ML IVPB SCH (06:22)
[2016-06-08] MEDS: FUROSEMIDE 40 MG TAB PO SCH (06:38)
[2016-06-08] MEDS: POTASSIUM CHLORIDE (SR) 10 MEQ TAB PO SCH (08:19)
[2016-06-08] MEDS: DOCUSATE SODIUM 10 MG/ML (10ML CUP) NGT SCH ×2 (08:19→20:13)
[2016-06-08] MEDS: CLOPIDOGREL 75 MG TAB PO SCH (08:19)
[2016-06-08] MEDS: ASPIRIN (EC) 81 MG TAB PO SCH (08:19)
[2016-06-08] MEDS: METOPROLOL (XL) 25 MG TAB PO SCH (08:20)
[2016-06-08 08:36] LABS: ADD SCAN DIFF NO
[2016-06-08 08:54] LABS: POTASSIUM 3.9 mmol/L (3.5-5.1)
[2016-06-08 08:56] LABS: CREATININE 0.66 mg/dl (0.61-1.24)
[2016-06-08 08:57] LABS: CALCIUM 8.2 mg/dl (8.4-10.2)
[2016-06-08] MEDS ORDERED: METHYLPREDNISOLONE 125 MG INJ IV SCH (09:00)
[2016-06-08 09:05] LABS: BASOPHILS % 0.1 % (0.0-2.0); HEMATOCRIT 50.1 % (42.0-52.0); HEMOGLOBIN 16.5 g/dl (14.0-18.0); LYMPHOCYTES # 1.3 10^3/ul (0.8-2.9); LYMPHOCYTES % 8.3 % (15.0-51.0); MEAN CORPUSCULAR HEMOGLOBIN 31.1 pg (29.0-33.0); MEAN CORPUSCULAR HGB CONC 32.9 g/dl (32.0-37.0); MEAN CORPUSCULAR VOLUME 94.4 fl (82.0-101.0); MEAN PLATELET VOLUME 11.8 fl (7.4-10.4); MONOCYTE # 1.4 10^3/ul (0.3-0.9); MONOCYTES % 9.2 % (0.0-11.0); NEUTROPHIL # 12.7 10^3/ul (1.6-7.5); NEUTROPHILS % 81.4 % (39.0-77.0); PLATELET COUNT 149 10^3/UL (140-415); RED BLOOD COUNT 5.31 10^6/ul (4.70-6.10); RED CELL DISTRIBUTION WIDTH 14.2 % (11.5-14.5); WHITE BLOOD COUNT 15.6 10^3/ul (4.8-10.8)
--- NOTE | 2016-06-08 11:07 | PN ---
Date/Time of Note Date/Time of Note DATE: 06/08/16 TIME: 11:05 Assessment/Plan VTE Prophylaxis VTE Prophylaxis Intervention: heparin Lines/Catheters IV Catheter Type (from [facility]): PICC Line Central line still needed: Yes Urinary Cath still in place: Yes Reason Cath still needed: other (indicate) Assessment/Plan Chief Complaint/Hosp Course 1. Acute respiratory failure, hypoxic and hypercapnic. Status post intubation. Extubated on 06/06/2016. Continue inhaled bronchodilators. The etiology of the patient's acute respiratory failure could be multifactorial including COPD and underlying heart disease. 2. Chronic obstructive pulmonary disease exacerbation. Continue inhaled bronchodilators and tapering dose of steroids. Pulmonary following the patient. 3. Atrial fibrillation with rapid ventricular response. Currently, the rate is controlled. Cardiology following. Continue amiodarone. 4. Recent CAD status post stent placement. Continue antiplatelet therapy. 5. Thrombocytopenia. Monitor for any bleeding. Continue antiplatelet therapy because of recent stent placement to the right coronary artery. 6. Prediabetes. Continue to monitor random blood glucose. If the patient's random blood glucose levels are running high, we will start the patient on insulin sliding scale. 7. Dyslipidemia. Continue statins. 8. Possible alcohol withdrawal. Patient on Librium. Has a one-to-one sitter. 9. Fluid, electrolytes and nutrition. Pured diet. 10. Deep venous thrombosis prophylaxis with subQ heparin. 10. Gastrointestinal prophylaxis. Proton pump inhibitors. PLAN: Continue current management. Obtain PT evaluation. Discontinue Tellez catheter. The case was discussed with Dr. Tellez. Problems: Subjective 24 Hr Interval Summary Free Text/Dictation The patient has been paranoid. 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 Exam/Review of Systems Vital Signs Vitals Vital Signs Date Time Temp Pulse Resp B/P Pulse Ox O2 Delivery O2 Flow Rate FiO2 06/08/16 08:16 111 06/08/16 07:21 97.8 20 136/84 97 06/08/16 05:06 6.0 06/07/16 20:00 Nasal Cannula 06/07/16 04:51 50 Intake and Output 06/07/16 06/07/16 06/08/16 15:00 23:00 07:00 Intake Total 1200 ml 480 ml 200 ml Output Total 1850 ml 400 ml Balance 1200 ml -1370 ml -200 ml Exam GENERAL: This is an obese male patient lying in bed in no apparent distress. HEENT: Head normocephalic and atraumatic. Eyes: Anicteric sclerae. Conjunctivae clear. ENT: Nasal septum is midline. Oral mucosa is dry. RESPIRATORY: Bilateral diminished breath sounds. CARDIAC: Irregularly irregular rhythm. S1 and S2 heard. ABDOMEN: Soft, nontender and nondistended. Bowel sounds positive in all 4 quadrants. GENITOURINARY: The patient has a Tellez catheter in place. EXTREMITIES: No cyanosis. Bilateral lower extremity trace pedal edema. Peripheral pulses are palpable. NEUROLOGIC: The patient is awake and alert. Oriented X 2. Moves all four extremities. Results Result Diagram: 06/08/16 0750 06/08/16 0750 Results 24 hrs Laboratory Tests Test 06/08/16 07:50 White Blood Count 15.6 #H Red Blood Count 5.31 Hemoglobin 16.5 Hematocrit 50.1 Mean Corpuscular Volume 94.4 Mean Corpuscular Hemoglobin 31.1 Mean Corpuscular Hemoglobin Concent 32.9 Red Cell Distribution Width 14.2 Platelet Count 149 Mean Platelet Volume 11.8 H Neutrophils % 81.4 H Lymphocytes % 8.3 L Monocytes % 9.2 Eosinophils % 0.0 Basophils % 0.1 Nucleated Red Blood Cells % 0.0 Neutrophils # 12.7 H Lymphocytes # 1.3 Monocytes # 1.4 H Eosinophils # 0.0 Basophils # 0.0 Nucleated Red Blood Cells # 0.0 Sodium Level 136 Potassium Level 3.9 Chloride Level 92 L Carbon Dioxide Level 34 H Anion Gap 14 Blood Urea Nitrogen 33 H Creatinine 0.66 Glucose Level 111 Calcium Level 8.2 L Magnesium Level 2.2 Medications Medications Current Medications Morphine Sulfate (morphine) 2 mg Q4H PRN IV PAIN LEVEL 7-10 Last administered on 06/07/16 22:01; Admin Dose 2 MG; Start 05/30/16 at 22:30 Ondansetron HCl (Zofran Inj) 4 mg Q6H PRN IV NAUSEA AND/OR VOMITING; Start at 22:30 Atorvastatin Calcium (Lipitor) 20 mg QHS PO Last administered on 06/07/16 22:01 ; Admin Dose 20 MG; Start 05/31/16 at 21:00 Clopidogrel Bisulfate (plaVIX) 75 mg DAILY PO Last administered on 06/08/16 08: 19; Admin Dose 75 MG; Start 05/31/16 at 09:00 Furosemide (Lasix) 40 mg DAILY@06 PO Last administered on 06/08/16 06:38; Admin Dose 40 MG; Start 05/31/16 at 06:00 Losartan Potassium (Cozaar) 25 mg DAILY PO Last administered on 05/31/16 08:51 ; Admin Dose 25 MG; Start 05/31/16 at 09:00; Status Future Hold Nitroglycerin (Nitroglycerin (Sl Tab) 0.4 Mg) 1 tab PRN PRN SL CHEST PAIN; Start 05/30/16 at 22:30 Potassium Chloride 10 meq 10 meq AM PO Last administered on 06/08/16 08:19; Admin Dose 10 MEQ; Start 05/31/16 at 09:00 Levofloxacin/ Dextrose (Levaquin 500mg/ D5W 100 ml (Pmx)) 100 ml @ 100 mls/hr Q24H IVPB Last administered on 06/08/16 06:22; Admin Dose 100 MLS/HR; Start at 06:00 Magnesium Hydroxide (Milk Of Mag) 30 ml DAILY PRN PO CONSTIPATION; Start at 07:00 Aspirin (Halfprin) 81 mg DAILY PO Last administered on 06/08/16 08:19; Admin Dose 81 MG; Start 05/31/16 at 09:00 Lorazepam (Ativan) 2 mg Q6H PRN IV ANXIETY Last administered on 06/07/16 04:56 ; Admin Dose 2 MG; Start 05/31/16 at 23:30 IV Flush (NS 10 ml) 10 ml PRN PRN IV IV PROTOCOL; Start 06/01/16 at 13:30 Pantoprazole (Protonix Iv) 40 mg DAILY@06 IV Last administered on 06/08/16 06: 18; Admin Dose 40 MG; Start 06/06/16 at 06:00 Docusate Sodium 100 mg 100 mg BID NGT Last administered on 06/08/16 08:19; Admin Dose 100 MG; Start 06/06/16 at 21:00 Multivitamins/ Thiamine HCl/ Folic Acid/Sodium Chloride (Mvi Adult/ Vitamin B1/ Folic Acid/NS) 1,011.2 ml @ 75 mls/hr DAILY@09 IVPB ; Start 06/07/16 at 09:00; Status Future Hold Chlordiazepoxide (Librium) 100 mg Q8H PRN PO AGITATION Last administered on 06/07 14:39; Admin Dose 100 MG; Start 06/06/16 at 23:30 Methylprednisolone Sodium Succinate (Solu-Medrol) 40 mg DAILY IV Last administered on 06/08/16 08:17; Admin Dose 40 MG; Start 06/08/16 at 09:00 Metoprolol Succinate (Toprol Xl) 25 mg DAILY PO Last administered on 06/08/16 08:20; Admin Dose 25 MG; Start 06/08/16 at 09:00 NELSON BARLOW NP June 08, 2016 11:07
--- NOTE | 2016-06-08 12:28 | CONS ---
Date/Time of Note Date/Time of Note DATE: 06/08/16 TIME: 12:26 Assessment/Plan Assessment/Plan Additional Assessment/Plan Assessment recommendations; 1. Patient admitted with COPD exacerbation leading to respiratory failure no successfully extubated with marked overall clinical improvement. 2. History of hypertension. Discontinue Solu-Medrol as well as Levaquin. Start the patient on prednisone 30 mg daily. Continue other medications. Consultation Date/Type/Reason Admit Date/Time May 30, 2016 at 20:05 Initial Consult Date 05/31/16 Type of Consultation: Pulmonary Referring Provider: BERNARDO PULIDO MD 24 HR Interval Summary Free Text/Dictation Patient condition is markedly improved overall. Had been transferred out of ICU to medical floor. Denies any coughing, wheezing chest pain, sputum production or wheezing. Exam; elderly male, awake alert currently in no distress. Exam/Review of Systems Vital Signs Vitals Vital Signs Date Time Temp Pulse Resp B/P Pulse Ox O2 Delivery O2 Flow Rate FiO2 06/08/16 12:07 108 06/08/16 11:35 97.8 19 119/80 95 06/08/16 05:06 6.0 06/07/16 20:00 Nasal Cannula 06/07/16 04:51 50 Intake and Output 06/07/16 06/07/16 06/08/16 15:00 23:00 07:00 Intake Total 1200 ml 480 ml 200 ml Output Total 1850 ml 400 ml Balance 1200 ml -1370 ml -200 ml Exam HEENT exam is; supple neck, no JVD. No lymphadenopathy. Midline trachea. No thyromegaly. Patient is partly edentulous. Pupils are small. Chest examined; diminished breath sound bilaterally. No added sound. S1-S2 audible, no murmurs. Regular rhythm. Abdomen examination; soft, nontender. No organomegaly. Bowel sounds audible. Extremity examination; no peripheral edema. Pulses 1+ bilaterally. [employer] examination; no focal deficit. Results Result Diagram: 06/08/16 0750 06/08/16 0750 Results 24 hrs Laboratory Tests Test 06/08/16 07:50 White Blood Count 15.6 #H Red Blood Count 5.31 Hemoglobin 16.5 Hematocrit 50.1 Mean Corpuscular Volume 94.4 Mean Corpuscular Hemoglobin 31.1 Mean Corpuscular Hemoglobin Concent 32.9 Red Cell Distribution Width 14.2 Platelet Count 149 Mean Platelet Volume 11.8 H Neutrophils % 81.4 H Lymphocytes % 8.3 L Monocytes % 9.2 Eosinophils % 0.0 Basophils % 0.1 Nucleated Red Blood Cells % 0.0 Neutrophils # 12.7 H Lymphocytes # 1.3 Monocytes # 1.4 H Eosinophils # 0.0 Basophils # 0.0 Nucleated Red Blood Cells # 0.0 Sodium Level 136 Potassium Level 3.9 Chloride Level 92 L Carbon Dioxide Level 34 H Anion Gap 14 Blood Urea Nitrogen 33 H Creatinine 0.66 Glucose Level 111 Calcium Level 8.2 L Magnesium Level 2.2 Medications Medications Current Medications Morphine Sulfate (morphine) 2 mg Q4H PRN IV PAIN LEVEL 7-10 Last administered on 06/07/16 22:01; Admin Dose 2 MG; Start 05/30/16 at 22:30 Ondansetron HCl (Zofran Inj) 4 mg Q6H PRN IV NAUSEA AND/OR VOMITING; Start at 22:30 Atorvastatin Calcium (Lipitor) 20 mg QHS PO Last administered on 06/07/16 22:01 ; Admin Dose 20 MG; Start 05/31/16 at 21:00 Clopidogrel Bisulfate (plaVIX) 75 mg DAILY PO Last administered on 06/08/16 08: 19; Admin Dose 75 MG; Start 05/31/16 at 09:00 Furosemide (Lasix) 40 mg DAILY@06 PO Last administered on 06/08/16 06:38; Admin Dose 40 MG; Start 05/31/16 at 06:00 Losartan Potassium (Cozaar) 25 mg DAILY PO Last administered on 05/31/16 08:51 ; Admin Dose 25 MG; Start 05/31/16 at 09:00; Status Future Hold Nitroglycerin (Nitroglycerin (Sl Tab) 0.4 Mg) 1 tab PRN PRN SL CHEST PAIN; Start 05/30/16 at 22:30 Potassium Chloride 10 meq 10 meq AM PO Last administered on 06/08/16 08:19; Admin Dose 10 MEQ; Start 05/31/16 at 09:00 Levofloxacin/ Dextrose (Levaquin 500mg/ D5W 100 ml (Pmx)) 100 ml @ 100 mls/hr Q24H IVPB Last administered on 06/08/16 06:22; Admin Dose 100 MLS/HR; Start at 06:00 Magnesium Hydroxide (Milk Of Mag) 30 ml DAILY PRN PO CONSTIPATION; Start at 07:00 Aspirin (Halfprin) 81 mg DAILY PO Last administered on 06/08/16 08:19; Admin Dose 81 MG; Start 05/31/16 at 09:00 Lorazepam (Ativan) 2 mg Q6H PRN IV ANXIETY Last administered on 06/07/16 04:56 ; Admin Dose 2 MG; Start 05/31/16 at 23:30 IV Flush (NS 10 ml) 10 ml PRN PRN IV IV PROTOCOL; Start 06/01/16 at 13:30 Pantoprazole (Protonix Iv) 40 mg DAILY@06 IV Last administered on 06/08/16 06: 18; Admin Dose 40 MG; Start 06/06/16 at 06:00 Docusate Sodium 100 mg 100 mg BID NGT Last administered on 06/08/16 08:19; Admin Dose 100 MG; Start 06/06/16 at 21:00 Multivitamins/ Thiamine HCl/ Folic Acid/Sodium Chloride (Mvi Adult/ Vitamin B1/ Folic Acid/NS) 1,011.2 ml @ 75 mls/hr DAILY@09 IVPB ; Start 06/07/16 at 09:00; Status Future Hold Chlordiazepoxide (Librium) 100 mg Q8H PRN PO AGITATION Last administered on 06/07 14:39; Admin Dose 100 MG; Start 06/06/16 at 23:30 Methylprednisolone Sodium Succinate (Solu-Medrol) 40 mg DAILY IV Last administered on 06/08/16 08:17; Admin Dose 40 MG; Start 06/08/16 at 09:00 Metoprolol Succinate (Toprol Xl) 25 mg DAILY PO Last administered on 06/08/16 08:20; Admin Dose 25 MG; Start 06/08/16 at 09:00 JOSE GILLIS June 08, 2016 12:28
--- NOTE | 2016-06-08 12:54 | CONS ---
Date/Time of Note Date/Time of Note DATE: 06/08/16 TIME: 12:50 Assessment/Plan Assessment/Plan Chief Complaint/Hosp Course IMPRESSION: 1. Atrial fibrillation-Now with RVR 2. Abnormal electrocardiogram, assess for acute coronary syndrome.-negative troponin x 3 3. Respiratory failure, assess for congestive heart failure. 4. History of percutaneous transluminal coronary angioplasty and stent placement 1 week prior at [facility] on aspirin and Plavix. 5. Hypotension. 6. Probable chronic obstructive pulmonary disease by history and chest x-ray findings. 7. Hyponatremia-improved 8. Respiratory failure s/p extubation Recc: -Tele -serial ecg -Increase toprol to improve BP -Digoxin IVP to improve HR as well -Continue amio for noew -Continue asa/plavix -resume SQ heparin -Continue abx's/steroids/bronchodilators -F/U cx data Problems: Consultation Date/Type/Reason Admit Date/Time May 30, 2016 at 20:05 Initial Consult Date 05/31/16 Type of Consultation: Cardiology Reason for Consultation AF Referring Provider: BERNARDO PULIDO MD Exam/Review of Systems Vital Signs Vitals Vital Signs Date Time Temp Pulse Resp B/P Pulse Ox O2 Delivery O2 Flow Rate FiO2 06/08/16 12:07 108 06/08/16 11:35 97.8 19 119/80 95 06/08/16 05:06 6.0 06/07/16 20:00 Nasal Cannula 06/07/16 04:51 50 Intake and Output 06/07/16 06/07/16 06/08/16 15:00 23:00 07:00 Intake Total 1200 ml 480 ml 200 ml Output Total 1850 ml 400 ml Balance 1200 ml -1370 ml -200 ml Exam Review of Systems: CONSTITUTIONAL: No fevers, chills. PULMONARY: ongoing sob CARDIOVASCULAR: No chest pain, positive mild palpitations GASTROINTESTINAL: No nausea/vomiting. GENITOURINARY: No hematuria/dysuria. MUSCULOSKELETAL: No myagias/arthalgias. PSYCHIATRIC: The patient denies depression. NEUROLOGIC: mild generalized weakness Constitutional: alert, oriented Psych: no complaints Head: normocephalic ENMT: mucosa pink and moist Neck: jvd (9 cm water), supple Respiratory: other (diffuse rhoncherous sounds) Cardiovascular: irregular rhythm (tachycardic) Gastrointestinal: non-tender, soft Musculoskeletal: muscle tone (normal) Extremities: edema (none) Neurological: other (No focal deficits) Results Result Diagram: 06/08/16 0750 06/08/16 0750 Results 24 hrs Laboratory Tests Test 06/08/16 07:50 White Blood Count 15.6 #H Red Blood Count 5.31 Hemoglobin 16.5 Hematocrit 50.1 Mean Corpuscular Volume 94.4 Mean Corpuscular Hemoglobin 31.1 Mean Corpuscular Hemoglobin Concent 32.9 Red Cell Distribution Width 14.2 Platelet Count 149 Mean Platelet Volume 11.8 H Neutrophils % 81.4 H Lymphocytes % 8.3 L Monocytes % 9.2 Eosinophils % 0.0 Basophils % 0.1 Nucleated Red Blood Cells % 0.0 Neutrophils # 12.7 H Lymphocytes # 1.3 Monocytes # 1.4 H Eosinophils # 0.0 Basophils # 0.0 Nucleated Red Blood Cells # 0.0 Sodium Level 136 Potassium Level 3.9 Chloride Level 92 L Carbon Dioxide Level 34 H Anion Gap 14 Blood Urea Nitrogen 33 H Creatinine 0.66 Glucose Level 111 Calcium Level 8.2 L Magnesium Level 2.2 Medications Medications Current Medications Morphine Sulfate (morphine) 2 mg Q4H PRN IV PAIN LEVEL 7-10 Last administered on 06/07/16 22:01; Admin Dose 2 MG; Start 05/30/16 at 22:30 Ondansetron HCl (Zofran Inj) 4 mg Q6H PRN IV NAUSEA AND/OR VOMITING; Start at 22:30 Atorvastatin Calcium (Lipitor) 20 mg QHS PO Last administered on 06/07/16 22:01 ; Admin Dose 20 MG; Start 05/31/16 at 21:00 Clopidogrel Bisulfate (plaVIX) 75 mg DAILY PO Last administered on 06/08/16 08: 19; Admin Dose 75 MG; Start 05/31/16 at 09:00 Furosemide (Lasix) 40 mg DAILY@06 PO Last administered on 06/08/16 06:38; Admin Dose 40 MG; Start 05/31/16 at 06:00 Losartan Potassium (Cozaar) 25 mg DAILY PO Last administered on 05/31/16 08:51 ; Admin Dose 25 MG; Start 05/31/16 at 09:00; Status Future Hold Nitroglycerin (Nitroglycerin (Sl Tab) 0.4 Mg) 1 tab PRN PRN SL CHEST PAIN; Start 05/30/16 at 22:30 Potassium Chloride (Klor-Con 10) 10 meq AM PO Last administered on 06/08/16 08: 19; Admin Dose 10 MEQ; Start 05/31/16 at 09:00 Magnesium Hydroxide (Milk Of Mag) 30 ml DAILY PRN PO CONSTIPATION; Start at 07:00 Aspirin (Halfprin) 81 mg DAILY PO Last administered on 06/08/16 08:19; Admin Dose 81 MG; Start 05/31/16 at 09:00 Lorazepam (Ativan) 2 mg Q6H PRN IV ANXIETY Last administered on 06/07/16 04:56 ; Admin Dose 2 MG; Start 05/31/16 at 23:30 IV Flush (NS 10 ml) 10 ml PRN PRN IV IV PROTOCOL; Start 06/01/16 at 13:30 Pantoprazole (Protonix Iv) 40 mg DAILY@06 IV Last administered on 06/08/16 06: 18; Admin Dose 40 MG; Start 06/06/16 at 06:00 Docusate Sodium 100 mg 100 mg BID NGT Last administered on 06/08/16 08:19; Admin Dose 100 MG; Start 06/06/16 at 21:00 Multivitamins/ Thiamine HCl/ Folic Acid/Sodium Chloride (Mvi Adult/ Vitamin B1/ Folic Acid/NS) 1,011.2 ml @ 75 mls/hr DAILY@09 IVPB ; Start 06/07/16 at 09:00; Status Future Hold Chlordiazepoxide (Librium) 100 mg Q8H PRN PO AGITATION Last administered on 06/07 14:39; Admin Dose 100 MG; Start 06/06/16 at 23:30 Metoprolol Succinate (Toprol Xl) 25 mg DAILY PO Last administered on 06/08/16 08:20; Admin Dose 25 MG; Start 06/08/16 at 09:00 Prednisone (Prednisone) 30 mg DAILY PO ; Start 06/09/16 at 09:00; Status MIGUEL ANGEL DE LA CRUZ June 08, 2016 12:54
[2016-06-08] MEDS: ATORVASTATIN 20 MG TAB PO SCH (20:13)
[2016-06-08] MEDS: HEPARIN 5,000 UNIT/0.5 ML VIAL SC SCH (20:13)
[2016-06-09] VITALS (13 sets, daily range): BP systolic 108–132; BP diastolic 63–82; PULSE 74–108; RESP 16–20
[2016-06-09] MEDS: CHLORDIAZEPOXIDE 25 MG CAP PO PRN (01:24)
[2016-06-09] MEDS: FUROSEMIDE 40 MG TAB PO SCH (05:54)
[2016-06-09] MEDS: PANTOPRAZOLE 40 MG INJ IV SCH (05:54)
[2016-06-09 06:50] LABS: ADD SCAN DIFF NO
[2016-06-09 07:03] LABS: ABNORMAL IP MESSAGE 1; BASOPHILS % 0.1 % (0.0-2.0); EOSINOPHILS % 0.1 % (0.0-7.0); HEMATOCRIT 46.6 % (42.0-52.0); HEMOGLOBIN 15.4 g/dl (14.0-18.0); LYMPHOCYTES % 12.3 % (15.0-51.0); MEAN CORPUSCULAR HEMOGLOBIN 31.2 pg (29.0-33.0); MEAN CORPUSCULAR VOLUME 94.5 fl (82.0-101.0); MEAN PLATELET VOLUME 11.8 fl (7.4-10.4); MONOCYTE # 1.8 10^3/ul (0.3-0.9); MONOCYTES % 11.2 % (0.0-11.0); NEUTROPHILS % 75.2 % (39.0-77.0); PLATELET COUNT 136 10^3/UL (140-415); RED BLOOD COUNT 4.93 10^6/ul (4.70-6.10); RED CELL DISTRIBUTION WIDTH 14.3 % (11.5-14.5)
[2016-06-09 07:55] LABS: CREATININE 0.63 mg/dl (0.61-1.24); POTASSIUM 3.5 mmol/L (3.5-5.1)
[2016-06-09 08:20] LABS: MAGNESIUM 2.2 mg/dl (1.7-2.5); PHOSPHORUS 3.1 mg/dl (2.5-4.9)
[2016-06-09] MEDS: POTASSIUM CHLORIDE (SR) 10 MEQ TAB PO SCH (08:30)
[2016-06-09] MEDS: CLOPIDOGREL 75 MG TAB PO SCH (08:30)
[2016-06-09] MEDS: ASPIRIN (EC) 81 MG TAB PO SCH (08:30)
[2016-06-09] MEDS: METOPROLOL (XL) 25 MG TAB PO SCH ×2 (08:30→20:55)
[2016-06-09] MEDS: predniSONE 10 MG TAB PO SCH (08:31)
[2016-06-09] MEDS: DOCUSATE SODIUM 10 MG/ML (10ML CUP) NGT SCH ×2 (08:31→20:53)
[2016-06-09] MEDS: HEPARIN 5,000 UNIT/0.5 ML VIAL SC SCH ×2 (08:35→20:58)
--- NOTE | 2016-06-09 11:20 | PN ---
Date/Time of Note Date/Time of Note DATE: 06/09/16 TIME: 11:19 Assessment/Plan VTE Prophylaxis VTE Prophylaxis Intervention: heparin Lines/Catheters IV [facility] PICC Line Central line still needed: Yes Urinary Cath still in place: No Assessment/Plan Chief Complaint/Hosp Course 1. Acute respiratory failure, hypoxic and hypercapnic. Status post intubation. Extubated on 06/06/2016. Continue inhaled bronchodilators. The etiology of the patient's acute respiratory failure could be multifactorial including COPD and underlying heart disease. 2. Chronic obstructive pulmonary disease exacerbation. Continue inhaled bronchodilators and tapering dose of steroids. Pulmonary following the patient. 3. Atrial fibrillation with rapid ventricular response. Currently, the rate is controlled. Cardiology following. Continue amiodarone. 4. Recent CAD status post stent placement. Continue antiplatelet therapy. 5. Thrombocytopenia. Monitor for any bleeding. Continue antiplatelet therapy because of recent stent placement to the right coronary artery. 6. Prediabetes. Continue to monitor random blood glucose. If the patient's random blood glucose levels are running high, we will start the patient on insulin sliding scale. 7. Dyslipidemia. Continue statins. 8. Possible alcohol withdrawal. Patient on Librium. Has a one-to-one sitter. 9. Fluid, electrolytes and nutrition. Pured diet. 10. Deep venous thrombosis prophylaxis with subQ heparin. 11. Gastrointestinal prophylaxis. Proton pump inhibitors. PLAN: Continue current management. Obtain PT evaluation. The case was discussed with Dr. Tellez. Problems: Subjective 24 Hr Interval Summary Free Text/Dictation The patient has no one-to-one sitter in place. Exam/Review of Systems Vital Signs Vitals Vital Signs Date Time Temp Pulse Resp B/P Pulse Ox O2 Delivery O2 Flow Rate FiO2 06/09/16 10:58 98.5 78 18 117/65 97 06/09/16 08:24 5.0 06/07/16 20:00 Nasal Cannula 06/07/16 04:51 50 Intake and Output 06/08/16 06/08/16 06/09/16 15:00 23:00 07:00 Intake Total 750 ml Balance 750 ml Exam GENERAL: This is an obese male patient lying in bed in no apparent distress. HEENT: Head normocephalic and atraumatic. Eyes: Anicteric sclerae. Conjunctivae clear. ENT: Nasal septum is midline. Oral mucosa is dry. RESPIRATORY: Bilateral diminished breath sounds. CARDIAC: Irregularly irregular rhythm. S1 and S2 heard. ABDOMEN: Soft, nontender and nondistended. Bowel sounds positive in all 4 quadrants. GENITOURINARY: The patient has a Tellez catheter in place. EXTREMITIES: No cyanosis. Bilateral lower extremity trace pedal edema. Peripheral pulses are palpable. NEUROLOGIC: The patient is awake and alert. Oriented X 2-3. Moves all four extremities. Results Result Diagram: 06/09/16 0630 06/09/16 0630 Results 24 hrs Laboratory Tests Test 06/09/16 06:30 White Blood Count 16.0 H Red Blood Count 4.93 Hemoglobin 15.4 Hematocrit 46.6 Mean Corpuscular Volume 94.5 Mean Corpuscular Hemoglobin 31.2 Mean Corpuscular Hemoglobin Concent 33.0 Red Cell Distribution Width 14.3 Platelet Count 136 L Mean Platelet Volume 11.8 H Neutrophils % 75.2 Lymphocytes % 12.3 L Monocytes % 11.2 H Eosinophils % 0.1 Basophils % 0.1 Nucleated Red Blood Cells % 0.0 Neutrophils # 12.0 H Lymphocytes # 2.0 Monocytes # 1.8 H Eosinophils # 0.0 Basophils # 0.0 Nucleated Red Blood Cells # 0.0 Sodium Level 136 Potassium Level 3.5 Chloride Level 93 L Carbon Dioxide Level 39 H Anion Gap 8 Blood Urea Nitrogen 26 H Creatinine 0.63 Glucose Level 65 #L Calcium Level 8.0 L Phosphorus Level 3.1 Magnesium Level 2.2 Medications Medications Current Medications Morphine Sulfate (morphine) 2 mg Q4H PRN IV PAIN LEVEL 7-10 Last administered on 06/07/16 22:01; Admin Dose 2 MG; Start 05/30/16 at 22:30 Ondansetron HCl (Zofran Inj) 4 mg Q6H PRN IV NAUSEA AND/OR VOMITING; Start at 22:30 Atorvastatin Calcium (Lipitor) 20 mg QHS PO Last administered on 06/08/16 20:13 ; Admin Dose 20 MG; Start 05/31/16 at 21:00 Clopidogrel Bisulfate (plaVIX) 75 mg DAILY PO Last administered on 06/09/16 08: 30; Admin Dose 75 MG; Start 05/31/16 at 09:00 Furosemide (Lasix) 40 mg DAILY@06 PO Last administered on 06/09/16 05:54; Admin Dose 40 MG; Start 05/31/16 at 06:00 Losartan Potassium (Cozaar) 25 mg DAILY PO Last administered on 05/31/16 08:51 ; Admin Dose 25 MG; Start 05/31/16 at 09:00; Status Future Hold Nitroglycerin (Nitroglycerin (Sl Tab) 0.4 Mg) 1 tab PRN PRN SL CHEST PAIN; Start 05/30/16 at 22:30 Potassium Chloride (Klor-Con 10) 10 meq AM PO Last administered on 06/09/16 08: 30; Admin Dose 10 MEQ; Start 05/31/16 at 09:00 Magnesium Hydroxide (Milk Of Mag) 30 ml DAILY PRN PO CONSTIPATION; Start at 07:00 Aspirin (Halfprin) 81 mg DAILY PO Last administered on 06/09/16 08:30; Admin Dose 81 MG; Start 05/31/16 at 09:00 Lorazepam (Ativan) 2 mg Q6H PRN IV ANXIETY Last administered on 06/07/16 04:56 ; Admin Dose 2 MG; Start 05/31/16 at 23:30 IV Flush (NS 10 ml) 10 ml PRN PRN IV IV PROTOCOL; Start 06/01/16 at 13:30 Pantoprazole (Protonix Iv) 40 mg DAILY@06 IV Last administered on 06/09/16 05: 54; Admin Dose 40 MG; Start 06/06/16 at 06:00 Docusate Sodium 100 mg 100 mg BID NGT Last administered on 06/09/16 08:31; Admin Dose 100 MG; Start 06/06/16 at 21:00 Multivitamins/ Thiamine HCl/ Folic Acid/Sodium Chloride (Mvi Adult/ Vitamin B1/ Folic Acid/NS) 1,011.2 ml @ 75 mls/hr DAILY@09 IVPB ; Start 06/07/16 at 09:00; Status Future Hold Chlordiazepoxide (Librium) 100 mg Q8H PRN PO AGITATION Last administered on 06/09 01:24; Admin Dose 100 MG; Start 06/06/16 at 23:30 Metoprolol Succinate (Toprol Xl) 25 mg DAILY PO Last administered on 06/09/16 08:30; Admin Dose 25 MG; Start 06/08/16 at 09:00 Prednisone (Prednisone) 30 mg DAILY PO Last administered on 06/09/16 08:31; Admin Dose 30 MG; Start 06/09/16 at 09:00 Heparin Sodium (Porcine) (Heparin (5000 Units/0.5 ml)) 5,000 unit BID SC Last administered on 06/09/16 08:35; Admin Dose 5,000 UNIT; Start 06/08/16 at 21:00 NELSON BARLOW NP June 09, 2016 11:20
--- NOTE | 2016-06-09 11:36 | CONS ---
Date/Time of Note Date/Time of Note DATE: 06/09/16 TIME: 11:34 Assessment/Plan Assessment/Plan Additional Assessment/Plan Assessment recommendations; 1. Patient admitted for severe COPD exacerbation leading to respiratory failure no successfully extubated several days ago with marked overall clinical improvement. 2. Stable hypertension. Continue current treatment. Steroid taper starting tomorrow. Patient would benefit from long-acting beta agonist as well as long-acting anticholinergic agent in the form of either Dulera or Advair or Symbicort. He may also benefit from albuterol via nebulizer at home. Consultation Date/Type/Reason Admit Date/Time May 30, 2016 at 20:05 Initial Consult Date 05/31/16 Type of Consultation: Pulmonary/critical care Referring Provider: BERNARDO PULIDO MD 24 HR Interval Summary Free Text/Dictation Patient condition is markedly improved. Patient has been on bleeding in the hallway, denies any shortness of breath, wheezing, cough or sputum production. General exam; middle-aged male, awake alert currently in no distress, sitting in a chair by bedside. Exam/Review of Systems Vital Signs Vitals Vital Signs Date Time Temp Pulse Resp B/P Pulse Ox O2 Delivery O2 Flow Rate FiO2 06/09/16 10:58 98.5 78 18 117/65 97 06/09/16 08:24 5.0 06/07/16 20:00 Nasal Cannula 06/07/16 04:51 50 Intake and Output 06/08/16 06/08/16 06/09/16 15:00 23:00 07:00 Intake Total 750 ml Balance 750 ml Exam HEENT examination; supple neck, no JVD. No lymphadenopathy. Midline trachea. No thyromegaly. Pharynx is clear. Patient is partly edentulous. Chest examination; diminished but clear vessel bilaterally. No added sound. S1 -S2 audible, no murmurs. Regular rhythm. Abdomen examination; soft, nondistended, no organomegaly. Bowel sounds audible. Extremity examination; no peripheral edema. PRECINCT CAPTAIN examination; no focal deficit. Results Result Diagram: 06/09/16 0630 06/09/16 0630 Results 24 hrs Laboratory Tests Test 06/09/16 06:30 White Blood Count 16.0 H Red Blood Count 4.93 Hemoglobin 15.4 Hematocrit 46.6 Mean Corpuscular Volume 94.5 Mean Corpuscular Hemoglobin 31.2 Mean Corpuscular Hemoglobin Concent 33.0 Red Cell Distribution Width 14.3 Platelet Count 136 L Mean Platelet Volume 11.8 H Neutrophils % 75.2 Lymphocytes % 12.3 L Monocytes % 11.2 H Eosinophils % 0.1 Basophils % 0.1 Nucleated Red Blood Cells % 0.0 Neutrophils # 12.0 H Lymphocytes # 2.0 Monocytes # 1.8 H Eosinophils # 0.0 Basophils # 0.0 Nucleated Red Blood Cells # 0.0 Sodium Level 136 Potassium Level 3.5 Chloride Level 93 L Carbon Dioxide Level 39 H Anion Gap 8 Blood Urea Nitrogen 26 H Creatinine 0.63 Glucose Level 65 #L Calcium Level 8.0 L Phosphorus Level 3.1 Magnesium Level 2.2 Medications Medications Current Medications Morphine Sulfate (morphine) 2 mg Q4H PRN IV PAIN LEVEL 7-10 Last administered on 06/07/16 22:01; Admin Dose 2 MG; Start 05/30/16 at 22:30 Ondansetron HCl (Zofran Inj) 4 mg Q6H PRN IV NAUSEA AND/OR VOMITING; Start at 22:30 Atorvastatin Calcium (Lipitor) 20 mg QHS PO Last administered on 06/08/16 20:13 ; Admin Dose 20 MG; Start 05/31/16 at 21:00 Clopidogrel Bisulfate (plaVIX) 75 mg DAILY PO Last administered on 06/09/16 08: 30; Admin Dose 75 MG; Start 05/31/16 at 09:00 Furosemide (Lasix) 40 mg DAILY@06 PO Last administered on 06/09/16 05:54; Admin Dose 40 MG; Start 05/31/16 at 06:00 Losartan Potassium (Cozaar) 25 mg DAILY PO Last administered on 05/31/16 08:51 ; Admin Dose 25 MG; Start 05/31/16 at 09:00; Status Future Hold Nitroglycerin (Nitroglycerin (Sl Tab) 0.4 Mg) 1 tab PRN PRN SL CHEST PAIN; Start 05/30/16 at 22:30 Potassium Chloride (Klor-Con 10) 10 meq AM PO Last administered on 06/09/16 08: 30; Admin Dose 10 MEQ; Start 05/31/16 at 09:00 Magnesium Hydroxide (Milk Of Mag) 30 ml DAILY PRN PO CONSTIPATION; Start at 07:00 Aspirin (Halfprin) 81 mg DAILY PO Last administered on 06/09/16 08:30; Admin Dose 81 MG; Start 05/31/16 at 09:00 Lorazepam (Ativan) 2 mg Q6H PRN IV ANXIETY Last administered on 06/07/16 04:56 ; Admin Dose 2 MG; Start 05/31/16 at 23:30 IV Flush (NS 10 ml) 10 ml PRN PRN IV IV PROTOCOL; Start 06/01/16 at 13:30 Pantoprazole (Protonix Iv) 40 mg DAILY@06 IV Last administered on 06/09/16 05: 54; Admin Dose 40 MG; Start 06/06/16 at 06:00 Docusate Sodium 100 mg 100 mg BID NGT Last administered on 06/09/16 08:31; Admin Dose 100 MG; Start 06/06/16 at 21:00 Multivitamins/ Thiamine HCl/ Folic Acid/Sodium Chloride (Mvi Adult/ Vitamin B1/ Folic Acid/NS) 1,011.2 ml @ 75 mls/hr DAILY@09 IVPB ; Start 06/07/16 at 09:00; Status Future Hold Chlordiazepoxide (Librium) 100 mg Q8H PRN PO AGITATION Last administered on 06/09 01:24; Admin Dose 100 MG; Start 06/06/16 at 23:30 Metoprolol Succinate (Toprol Xl) 25 mg DAILY PO Last administered on 06/09/16 08:30; Admin Dose 25 MG; Start 06/08/16 at 09:00 Prednisone (Prednisone) 30 mg DAILY PO Last administered on 06/09/16 08:31; Admin Dose 30 MG; Start 06/09/16 at 09:00 Heparin Sodium (Porcine) (Heparin (5000 Units/0.5 ml)) 5,000 unit BID SC Last administered on 06/09/16 08:35; Admin Dose 5,000 UNIT; Start 06/08/16 at 21:00 JOSE GILLIS June 09, 2016 11:36
--- NOTE | 2016-06-09 14:27 | CONS ---
Date/Time of Note Date/Time of Note DATE: 06/09/16 TIME: 14:25 Assessment/Plan Assessment/Plan Chief Complaint/Hosp Course IMPRESSION: 1. Atrial fibrillation-Now with RVR 2. Abnormal electrocardiogram, assess for acute coronary syndrome.-negative troponin x 3 3. Respiratory failure, assess for congestive heart failure. 4. History of percutaneous transluminal coronary angioplasty and stent placement 1 week prior at [facility] on aspirin and Plavix. 5. Hypotension. 6. Probable chronic obstructive pulmonary disease by history and chest x-ray findings. 7. Hyponatremia-improved 8. Respiratory failure s/p extubation Recc: -Tele -serial ecg -Increase toprol to improve BP -Will start PO digoxin -Continue amio for now -Continue asa/plavix -Continue SQ heparin -Continue abx's/PO steroids/bronchodilators -F/U cx data Problems: Consultation Date/Type/Reason Admit Date/Time May 30, 2016 at 20:05 Initial Consult Date 05/31/16 Type of Consultation: Cardiology Reason for Consultation CHF/cardiac arrythmia Referring Provider: BERNARDO PULIDO MD Exam/Review of Systems Vital Signs Vitals Vital Signs Date Time Temp Pulse Resp B/P Pulse Ox O2 Delivery O2 Flow Rate FiO2 06/09/16 12:20 108 06/09/16 10:58 98.5 18 117/65 97 06/09/16 08:24 5.0 06/07/16 20:00 Nasal Cannula 06/07/16 04:51 50 Intake and Output 06/08/16 06/08/16 06/09/16 15:00 23:00 07:00 Intake Total 750 ml Balance 750 ml Exam Review of Systems: CONSTITUTIONAL: No fevers, chills. PULMONARY: improving sob CARDIOVASCULAR: No chest pain/palpitations GASTROINTESTINAL: No nausea/vomiting. GENITOURINARY: No hematuria/dysuria. MUSCULOSKELETAL: No myagias/arthalgias. PSYCHIATRIC: The patient denies depression. NEUROLOGIC: No weakness Constitutional: alert, oriented Psych: no complaints Head: normocephalic ENMT: mucosa pink and moist Neck: jvd (9 cm water) Respiratory: diminished breath sounds (throughout but improving) Cardiovascular: regular rate and rhythm Gastrointestinal: non-tender, soft Musculoskeletal: muscle tone Extremities: edema Neurological: other Results Result Diagram: 5/5/17 0630 5/5/17 0630 Results 24 hrs Laboratory Tests Test 06/09/16 06:30 White Blood Count 16.0 H Red Blood Count 4.93 Hemoglobin 15.4 Hematocrit 46.6 Mean Corpuscular Volume 94.5 Mean Corpuscular Hemoglobin 31.2 Mean Corpuscular Hemoglobin Concent 33.0 Red Cell Distribution Width 14.3 Platelet Count 136 L Mean Platelet Volume 11.8 H Neutrophils % 75.2 Lymphocytes % 12.3 L Monocytes % 11.2 H Eosinophils % 0.1 Basophils % 0.1 Nucleated Red Blood Cells % 0.0 Neutrophils # 12.0 H Lymphocytes # 2.0 Monocytes # 1.8 H Eosinophils # 0.0 Basophils # 0.0 Nucleated Red Blood Cells # 0.0 Sodium Level 136 Potassium Level 3.5 Chloride Level 93 L Carbon Dioxide Level 39 H Anion Gap 8 Blood Urea Nitrogen 26 H Creatinine 0.63 Glucose Level 65 #L Calcium Level 8.0 L Phosphorus Level 3.1 Magnesium Level 2.2 Medications Medications Current Medications Morphine Sulfate (morphine) 2 mg Q4H PRN IV PAIN LEVEL 7-10 Last administered on 06/07/16 22:01; Admin Dose 2 MG; Start 05/30/16 at 22:30 Ondansetron HCl (Zofran Inj) 4 mg Q6H PRN IV NAUSEA AND/OR VOMITING; Start at 22:30 Atorvastatin Calcium (Lipitor) 20 mg QHS PO Last administered on 06/08/16 20:13 ; Admin Dose 20 MG; Start 05/31/16 at 21:00 Clopidogrel Bisulfate (plaVIX) 75 mg DAILY PO Last administered on 06/09/16 08: 30; Admin Dose 75 MG; Start 05/31/16 at 09:00 Furosemide (Lasix) 40 mg DAILY@06 PO Last administered on 06/09/16 05:54; Admin Dose 40 MG; Start 05/31/16 at 06:00 Losartan Potassium (Cozaar) 25 mg DAILY PO Last administered on 05/31/16 08:51 ; Admin Dose 25 MG; Start 05/31/16 at 09:00; Status Future Hold Nitroglycerin (Nitroglycerin (Sl Tab) 0.4 Mg) 1 tab PRN PRN SL CHEST PAIN; Start 05/30/16 at 22:30 Potassium Chloride (Klor-Con 10) 10 meq AM PO Last administered on 06/09/16 08: 30; Admin Dose 10 MEQ; Start 05/31/16 at 09:00 Magnesium Hydroxide (Milk Of Mag) 30 ml DAILY PRN PO CONSTIPATION; Start at 07:00 Aspirin (Halfprin) 81 mg DAILY PO Last administered on 06/09/16 08:30; Admin Dose 81 MG; Start 05/31/16 at 09:00 Lorazepam (Ativan) 2 mg Q6H PRN IV ANXIETY Last administered on 06/07/16 04:56 ; Admin Dose 2 MG; Start 05/31/16 at 23:30 IV Flush (NS 10 ml) 10 ml PRN PRN IV IV PROTOCOL; Start 06/01/16 at 13:30 Pantoprazole (Protonix Iv) 40 mg DAILY@06 IV Last administered on 06/09/16 05: 54; Admin Dose 40 MG; Start 06/06/16 at 06:00 Docusate Sodium 100 mg 100 mg BID NGT Last administered on 06/09/16 08:31; Admin Dose 100 MG; Start 06/06/16 at 21:00 Multivitamins/ Thiamine HCl/ Folic Acid/Sodium Chloride (Mvi Adult/ Vitamin B1/ Folic Acid/NS) 1,011.2 ml @ 75 mls/hr DAILY@09 IVPB ; Start 06/07/16 at 09:00; Status Future Hold Chlordiazepoxide (Librium) 100 mg Q8H PRN PO AGITATION Last administered on 06/09 01:24; Admin Dose 100 MG; Start 06/06/16 at 23:30 Metoprolol Succinate (Toprol Xl) 25 mg DAILY PO Last administered on 06/09/16 08:30; Admin Dose 25 MG; Start 06/08/16 at 09:00 Prednisone (Prednisone) 30 mg DAILY PO Last administered on 06/09/16 08:31; Admin Dose 30 MG; Start 06/09/16 at 09:00 Heparin Sodium (Porcine) (Heparin (5000 Units/0.5 ml)) 5,000 unit BID SC Last administered on 06/09/16 08:35; Admin Dose 5,000 UNIT; Start 06/08/16 at 21:00 MIGUEL ANGEL GAONA June 09, 2016 14:27
[2016-06-09] MEDS ORDERED: ACETAMINOPHEN 500 MG TAB PO PRN (15:30)
[2016-06-09] MEDS: ATORVASTATIN 20 MG TAB PO SCH (20:53)
[2016-06-10] VITALS (12 sets, daily range): BP systolic 99–113; BP diastolic 18–70; PULSE 50–110; RESP 18–20
[2016-06-10] MEDS: ALPRAZOLAM 0.5 MG TAB PO PRN (02:56)
[2016-06-10] MEDS: PANTOPRAZOLE (EC) 40 MG TAB PO SCH (05:04)
[2016-06-10] MEDS: FUROSEMIDE 40 MG TAB PO SCH (05:04)
[2016-06-10 06:51] LABS: ADD SCAN DIFF NO
[2016-06-10 06:57] LABS: BASOPHILS % 0.1 % (0.0-2.0); EOSINOPHILS # 0.3 10^3/ul (0.0-0.5); EOSINOPHILS % 1.6 % (0.0-7.0); HEMOGLOBIN 15.5 g/dl (14.0-18.0); LYMPHOCYTES # 3.6 10^3/ul (0.8-2.9); LYMPHOCYTES % 20.1 % (15.0-51.0); MEAN CORPUSCULAR HGB CONC 32.3 g/dl (32.0-37.0); MEAN PLATELET VOLUME 11.6 fl (7.4-10.4); MONOCYTE # 1.3 10^3/ul (0.3-0.9); MONOCYTES % 7.1 % (0.0-11.0); NEUTROPHIL # 12.5 10^3/ul (1.6-7.5); NEUTROPHILS % 70.4 % (39.0-77.0); PLATELET COUNT 133 10^3/UL (140-415); RED CELL DISTRIBUTION WIDTH 14.3 % (11.5-14.5); WHITE BLOOD COUNT 17.8 10^3/ul (4.8-10.8)
[2016-06-10 07:10] LABS: PHOSPHORUS 2.7 mg/dl (2.5-4.9)
[2016-06-10 07:19] LABS: CALCIUM 7.7 mg/dl (8.4-10.2); CREATININE 0.63 mg/dl (0.61-1.24); POTASSIUM 3.5 mmol/L (3.5-5.1)
[2016-06-10] MEDS: METOPROLOL (XL) 25 MG TAB PO SCH ×2 (09:00→20:52)
[2016-06-10] MEDS: HEPARIN 5,000 UNIT/0.5 ML VIAL SC SCH ×2 (09:39→20:54)
[2016-06-10] MEDS: predniSONE 10 MG TAB PO SCH (09:43)
[2016-06-10] MEDS: CLOPIDOGREL 75 MG TAB PO SCH (09:43)
[2016-06-10] MEDS: ASPIRIN (EC) 81 MG TAB PO SCH (09:44)
[2016-06-10] MEDS: POTASSIUM CHLORIDE (SR) 10 MEQ TAB PO SCH (09:45)
[2016-06-10] MEDS: DOCUSATE SODIUM 10 MG/ML (10ML CUP) NGT SCH ×2 (09:45→20:51)
--- NOTE | 2016-06-10 10:56 | CONS ---
Date/Time of Note Date/Time of Note DATE: 06/10/16 TIME: 10:54 Consult Date/Type/Reason Admit Date/Time May 30, 2016 at 20:05 Initial Consult Date 05/31/16 Type of Consultation: pulmonary Ordering Provider: BERNARDO PULIDO MD Subjective Significantly improved, awake alert and oriented sitting up in chair no shortness of breath Remains in atrial fibrillation rate controlled Objective Vital Signs Date Time Temp Pulse Resp B/P Pulse Ox O2 Delivery O2 Flow Rate FiO2 06/10/16 08:11 100 06/10/16 07:29 98.0 18 99/64 98 06/10/16 05:46 5.0 06/07/16 20:00 Nasal Cannula 06/07/16 04:51 50 Intake and Output 06/09/16 06/09/16 06/10/16 15:00 23:00 07:00 Intake Total 820 ml 750 ml Balance 820 ml 750 ml Exam GENERAL: Well-nourished well-developed gentleman comfortable at rest VITAL SIGNS: per chart NECK: Supple. No JVD or lymphadenopathy. CARDIAC EXAM: S1, S2. No added sounds or murmurs. CHEST: clear bilaterally, No added sounds, rales or wheezes ABDOMEN: Soft, nontender. No guarding or rebound. EXTREMITIES: No cyanosis, clubbing or edema. NEUROLOGIC: Generalized weakness. No focal deficits. Results/Medications Result Diagram: 06/10/16 0545 06/10/16 0545 Results 24 hrs Laboratory Tests Test 06/10/16 05:45 White Blood Count 17.8 H Red Blood Count 5.00 Hemoglobin 15.5 Hematocrit 48.0 Mean Corpuscular Volume 96.0 Mean Corpuscular Hemoglobin 31.0 Mean Corpuscular Hemoglobin Concent 32.3 Red Cell Distribution Width 14.3 Platelet Count 133 L Mean Platelet Volume 11.6 H Neutrophils % 70.4 Lymphocytes % 20.1 Monocytes % 7.1 Eosinophils % 1.6 Basophils % 0.1 Nucleated Red Blood Cells % 0.0 Neutrophils # 12.5 H Lymphocytes # 3.6 H Monocytes # 1.3 H Eosinophils # 0.3 Basophils # 0.0 Nucleated Red Blood Cells # 0.0 Sodium Level 134 L Potassium Level 3.5 Chloride Level 95 L Carbon Dioxide Level 36 H Anion Gap 7 L Blood Urea Nitrogen 25 H Creatinine 0.63 Glucose Level 94 Calcium Level 7.7 L Phosphorus Level 2.7 Magnesium Level 2.0 Medications Current Medications Morphine Sulfate (morphine) 2 mg Q4H PRN IV PAIN LEVEL 7-10 Last administered on 06/07/16 22:01; Admin Dose 2 MG; Start 05/30/16 at 22:30 Ondansetron HCl (Zofran Inj) 4 mg Q6H PRN IV NAUSEA AND/OR VOMITING; Start at 22:30 Atorvastatin Calcium (Lipitor) 20 mg QHS PO Last administered on 06/09/16 20:53 ; Admin Dose 20 MG; Start 05/31/16 at 21:00 Clopidogrel Bisulfate (plaVIX) 75 mg DAILY PO Last administered on 06/10/16 09: 43; Admin Dose 75 MG; Start 05/31/16 at 09:00 Furosemide (Lasix) 40 mg DAILY@06 PO Last administered on 06/10/16 05:04; Admin Dose 40 MG; Start 05/31/16 at 06:00 Losartan Potassium (Cozaar) 25 mg DAILY PO Last administered on 05/31/16 08:51 ; Admin Dose 25 MG; Start 05/31/16 at 09:00; Status Future Hold Nitroglycerin (Nitroglycerin (Sl Tab) 0.4 Mg) 1 tab PRN PRN SL CHEST PAIN; Start 05/30/16 at 22:30 Potassium Chloride (Klor-Con 10) 10 meq AM PO Last administered on 06/10/16 09: 45; Admin Dose 10 MEQ; Start 05/31/16 at 09:00 Magnesium Hydroxide (Milk Of Mag) 30 ml DAILY PRN PO CONSTIPATION; Start at 07:00 Aspirin (Halfprin) 81 mg DAILY PO Last administered on 06/10/16 09:44; Admin Dose 81 MG; Start 05/31/16 at 09:00 IV Flush (NS 10 ml) 10 ml PRN PRN IV IV PROTOCOL; Start 06/01/16 at 13:30 Docusate Sodium 100 mg 100 mg BID NGT Last administered on 06/10/16 09:45; Admin Dose 100 MG; Start 06/06/16 at 21:00 Multivitamins/ Thiamine HCl/ Folic Acid/Sodium Chloride (Mvi Adult/ Vitamin B1/ Folic Acid/NS) 1,011.2 ml @ 75 mls/hr DAILY@09 IVPB ; Start 06/07/16 at 09:00; Status Future Hold Chlordiazepoxide (Librium) 100 mg Q8H PRN PO AGITATION Last administered on 06/09 01:24; Admin Dose 100 MG; Start 06/06/16 at 23:30 Prednisone (Prednisone) 30 mg DAILY PO Last administered on 06/10/16 09:43; Admin Dose 30 MG; Start 06/09/16 at 09:00 Heparin Sodium (Porcine) (Heparin (5000 Units/0.5 ml)) 5,000 unit BID SC Last administered on 06/10/16 09:39; Admin Dose 5,000 UNIT; Start 06/08/16 at 21:00 Metoprolol Succinate (Toprol Xl) 25 mg BID PO Last administered on 06/09/16 20: 55; Admin Dose 25 MG; Start 06/09/16 at 21:00 Digoxin (Digoxin) 0.125 mg DAILY@13 PO ; Start 06/10/16 at 13:00 Acetaminophen (Tylenol Tab) 500 mg Q6H PRN PO PAIN AND OR ELEVATED TEMP; Start 06/09/16 at 15:30 Alprazolam (Xanax) 0.5 mg Q8H PRN PO ANXIETY Last administered on 06/10/16 02: 56; Admin Dose 0.5 MG; Start 06/09/16 at 15:30 Pantoprazole (Protonix Tab) 40 mg DAILY@06 PO Last administered on 06/10/16 05: 04; Admin Dose 40 MG; Start 06/10/16 at 06:00 Assessment/Plan Chief Complaint/Hosp Course IMPRESSION AND PLAN: 1. Status post Acute pulmonary edema with hypoxemic respiratory failure, now safely extubated 2. History of polysubstance abuse. 3. History of coronary artery disease. 4. Encephalopathy toxic metabolic secondary to substance abuse history, resolved The patient will require 1. Continued antibiotics. 2. Continue bronchodilators. 3. Continue supplemental O2. Aspiration precautions 4. Stop steroids 5. DVT and GI prophylaxis. Discussed cessation of drug use Problems: [facility] June 10, 2016 10:56
--- NOTE | 2016-06-10 11:29 | PN ---
Date/Time of Note Date/Time of Note DATE: 06/10/16 TIME: 11:27 Assessment/Plan VTE Prophylaxis VTE Prophylaxis Intervention: heparin Lines/Catheters IV [facility] P[facility] Line Central line still needed: Yes Urinary Cath still in place: No Assessment/Plan Chief Complaint/Hosp Course 1. Acute respiratory failure, hypoxic and hypercapnic. Status post intubation. Extubated on 06/06/2016. Continue inhaled bronchodilators. The etiology of the patient's acute respiratory failure could be multifactorial including COPD and underlying heart disease. 2. Chronic obstructive pulmonary disease exacerbation. Continue inhaled bronchodilators and tapering dose of steroids. Pulmonary following the patient. 3. Atrial fibrillation with rapid ventricular response. Currently, the rate is controlled. Cardiology following. Continue amiodarone. 4. Recent CAD status post stent placement. Continue antiplatelet therapy. 5. Thrombocytopenia. Monitor for any bleeding. Continue antiplatelet therapy because of recent stent placement to the right coronary artery. 6. Prediabetes. Continue to monitor random blood glucose. If the patient's random blood glucose levels are running high, we will start the patient on insulin sliding scale. 7. Dyslipidemia. Continue statins. 8. Possible alcohol withdrawal. Patient on Librium. 9. Fluid, electrolytes and nutrition. Low-cholesterol diet. 10. Deep venous thrombosis prophylaxis with subQ heparin. 11. Gastrointestinal prophylaxis. Proton pump inhibitors. PLAN: Continue tapering dose of steroids. Continue physical therapy. The case was discussed with Dr. Tellez. Problems: Subjective 24 Hr Interval Summary Free Text/Dictation The patient has a one-to-one sitter currently because he was impulsive last night. Exam/Review of Systems Vital Signs Vitals Vital Signs Date Time Temp Pulse Resp B/P Pulse Ox O2 Delivery O2 Flow Rate FiO2 06/10/16 08:11 100 06/10/16 07:29 98.0 18 99/64 98 06/10/16 05:46 5.0 06/07/16 20:00 Nasal Cannula 06/07/16 04:51 50 Intake and Output 06/09/16 06/09/16 06/10/16 15:00 23:00 07:00 Intake Total 820 ml 750 ml Balance 820 ml 750 ml Exam GENERAL: This is an obese male patient lying in bed in no apparent distress. HEENT: Head normocephalic and atraumatic. Eyes: Anicteric sclerae. Conjunctivae clear. ENT: Nasal septum is midline. Oral mucosa is dry. RESPIRATORY: Bilateral diminished breath sounds. CARDIAC: Irregularly irregular rhythm. S1 and S2 heard. ABDOMEN: Soft, nontender and nondistended. Bowel sounds positive in all 4 quadrants. GENITOURINARY: The patient has a Tellez catheter in place. EXTREMITIES: No cyanosis. Bilateral lower extremity trace pedal edema. Peripheral pulses are palpable. NEUROLOGIC: The patient is awake and alert. Oriented X 3. Moves all four extremities. Results Result Diagram: 06/10/16 0545 06/10/16 0545 Results 24 hrs Laboratory Tests Test 06/10/16 05:45 White Blood Count 17.8 H Red Blood Count 5.00 Hemoglobin 15.5 Hematocrit 48.0 Mean Corpuscular Volume 96.0 Mean Corpuscular Hemoglobin 31.0 Mean Corpuscular Hemoglobin Concent 32.3 Red Cell Distribution Width 14.3 Platelet Count 133 L Mean Platelet Volume 11.6 H Neutrophils % 70.4 Lymphocytes % 20.1 Monocytes % 7.1 Eosinophils % 1.6 Basophils % 0.1 Nucleated Red Blood Cells % 0.0 Neutrophils # 12.5 H Lymphocytes # 3.6 H Monocytes # 1.3 H Eosinophils # 0.3 Basophils # 0.0 Nucleated Red Blood Cells # 0.0 Sodium Level 134 L Potassium Level 3.5 Chloride Level 95 L Carbon Dioxide Level 36 H Anion Gap 7 L Blood Urea Nitrogen 25 H Creatinine 0.63 Glucose Level 94 Calcium Level 7.7 L Phosphorus Level 2.7 Magnesium Level 2.0 Medications Medications Current Medications Morphine Sulfate (morphine) 2 mg Q4H PRN IV PAIN LEVEL 7-10 Last administered on 06/07/16 22:01; Admin Dose 2 MG; Start 05/30/16 at 22:30 Ondansetron HCl (Zofran Inj) 4 mg Q6H PRN IV NAUSEA AND/OR VOMITING; Start at 22:30 Atorvastatin Calcium (Lipitor) 20 mg QHS PO Last administered on 06/09/16 20:53 ; Admin Dose 20 MG; Start 05/31/16 at 21:00 Clopidogrel Bisulfate (plaVIX) 75 mg DAILY PO Last administered on 06/10/16 09: 43; Admin Dose 75 MG; Start 05/31/16 at 09:00 Furosemide (Lasix) 40 mg DAILY@06 PO Last administered on 06/10/16 05:04; Admin Dose 40 MG; Start 05/31/16 at 06:00 Losartan Potassium (Cozaar) 25 mg DAILY PO Last administered on 05/31/16 08:51 ; Admin Dose 25 MG; Start 05/31/16 at 09:00; Status Future Hold Nitroglycerin (Nitroglycerin (Sl Tab) 0.4 Mg) 1 tab PRN PRN SL CHEST PAIN; Start 05/30/16 at 22:30 Potassium Chloride (Klor-Con 10) 10 meq AM PO Last administered on 06/10/16 09: 45; Admin Dose 10 MEQ; Start 05/31/16 at 09:00 Magnesium Hydroxide (Milk Of Mag) 30 ml DAILY PRN PO CONSTIPATION; Start at 07:00 Aspirin (Halfprin) 81 mg DAILY PO Last administered on 06/10/16 09:44; Admin Dose 81 MG; Start 05/31/16 at 09:00 IV Flush (NS 10 ml) 10 ml PRN PRN IV IV PROTOCOL; Start 06/01/16 at 13:30 Docusate Sodium 100 mg 100 mg BID NGT Last administered on 06/10/16 09:45; Admin Dose 100 MG; Start 06/06/16 at 21:00 Multivitamins/ Thiamine HCl/ Folic Acid/Sodium Chloride (Mvi Adult/ Vitamin B1/ Folic Acid/NS) 1,011.2 ml @ 75 mls/hr DAILY@09 IVPB ; Start 06/07/16 at 09:00; Status Future Hold Chlordiazepoxide (Librium) 100 mg Q8H PRN PO AGITATION Last administered on 06/09 01:24; Admin Dose 100 MG; Start 06/06/16 at 23:30 Prednisone (Prednisone) 30 mg DAILY PO Last administered on 06/10/16 09:43; Admin Dose 30 MG; Start 06/09/16 at 09:00 Heparin Sodium (Porcine) (Heparin (5000 Units/0.5 ml)) 5,000 unit BID SC Last administered on 06/10/16 09:39; Admin Dose 5,000 UNIT; Start 06/08/16 at 21:00 Metoprolol Succinate (Toprol Xl) 25 mg BID PO Last administered on 06/09/16 20: 55; Admin Dose 25 MG; Start 06/09/16 at 21:00 Digoxin (Digoxin) 0.125 mg DAILY@13 PO ; Start 06/10/16 at 13:00 Acetaminophen (Tylenol Tab) 500 mg Q6H PRN PO PAIN AND OR ELEVATED TEMP; Start 06/09/16 at 15:30 Alprazolam (Xanax) 0.5 mg Q8H PRN PO ANXIETY Last administered on 06/10/16 02: 56; Admin Dose 0.5 MG; Start 06/09/16 at 15:30 Pantoprazole (Protonix Tab) 40 mg DAILY@06 PO Last administered on 06/10/16 05: 04; Admin Dose 40 MG; Start 06/10/16 at 06:00 NELSON BARLOW NP June 10, 2016 11:29
--- NOTE | 2016-06-10 11:40 | CONS ---
Date/Time of Note Date/Time of Note DATE: 06/10/16 TIME: 11:37 Assessment/Plan Assessment/Plan Additional Assessment/Plan 1. Atrial fibrillation-Now rate well controlled - con't to follow 2. Abnormal electrocardiogram, assess for acute coronary syndrome.-negative troponin x 3 - no CP, doubt ischemia 3. Respiratory failure, assess for congestive heart failure. 4. History of percutaneous transluminal coronary angioplasty and stent placement 1 week prior at [facility] on aspirin and Plavix. Con't med rx 5. Hypotension. 6. Probable chronic obstructive pulmonary disease by history and chest x-ray findings- con't resp Rx - better overall 7. Hyponatremia-improved 8. Respiratory failure s/p extubation - saturating Ok Consultation Date/Type/Reason Admit Date/Time May 30, 2016 at 20:05 Initial Consult Date 05/31/16 Type of Consultation: pulmonary Referring Provider: BERNARDO PULIDO MD 24 HR Interval Summary Free Text/Dictation No acute events - BP stable - in good fluid status - a. fib - rate controlled ROS: No fever, no chills, no nausea, no vomiting, no diarrhea/constipation No recent weight changes No chest pain, no PND, no orthopnea + SOB No dizziness, blurred vision No thirst, no heat or cold intolerance Exam/Review of Systems Vital Signs Vitals Vital Signs Date Time Temp Pulse Resp B/P Pulse Ox O2 Delivery O2 Flow Rate FiO2 06/10/16 08:11 100 06/10/16 07:29 98.0 18 99/64 98 06/10/16 05:46 5.0 06/07/16 20:00 Nasal Cannula 06/07/16 04:51 50 Intake and Output 06/09/16 06/09/16 06/10/16 15:00 23:00 07:00 Intake Total 820 ml 750 ml Balance 820 ml 750 ml Exam General: WN/WD/NAD, AOx 1-2 HEENT: Unicetric/atraumatic/EOMI (follow commands) NECK: JVD elevated, no thyromegaly Lymph: no lymphadenopathy HEART: IRregular with no S3, II/ systolic murmur at apex LUNGS: Coarse sounds ABD: soft, NT, ND, +BS : Intact Neuro: non focal SKIN: chronic changes EXT: trace edema Results Result Diagram: 06/10/1654406/10/16544 Results 24 hrs Laboratory Tests Test 06/10/16 05:45 White Blood Count 17.8 H Red Blood Count 5.00 Hemoglobin 15.5 Hematocrit 48.0 Mean Corpuscular Volume 96.0 Mean Corpuscular Hemoglobin 31.0 Mean Corpuscular Hemoglobin Concent 32.3 Red Cell Distribution Width 14.3 Platelet Count 133 L Mean Platelet Volume 11.6 H Neutrophils % 70.4 Lymphocytes % 20.1 Monocytes % 7.1 Eosinophils % 1.6 Basophils % 0.1 Nucleated Red Blood Cells % 0.0 Neutrophils # 12.5 H Lymphocytes # 3.6 H Monocytes # 1.3 H Eosinophils # 0.3 Basophils # 0.0 Nucleated Red Blood Cells # 0.0 Sodium Level 134 L Potassium Level 3.5 Chloride Level 95 L Carbon Dioxide Level 36 H Anion Gap 7 L Blood Urea Nitrogen 25 H Creatinine 0.63 Glucose Level 94 Calcium Level 7.7 L Phosphorus Level 2.7 Magnesium Level 2.0 Medications Medications Current Medications Morphine Sulfate (morphine) 2 mg Q4H PRN IV PAIN LEVEL 7-10 Last administered on 06/07/16 22:01; Admin Dose 2 MG; Start 05/30/16 at 22:30 Ondansetron HCl (Zofran Inj) 4 mg Q6H PRN IV NAUSEA AND/OR VOMITING; Start at 22:30 Atorvastatin Calcium (Lipitor) 20 mg QHS PO Last administered on 06/09/16 20:53 ; Admin Dose 20 MG; Start 05/31/16 at 21:00 Clopidogrel Bisulfate (plaVIX) 75 mg DAILY PO Last administered on 06/10/16 09: 43; Admin Dose 75 MG; Start 05/31/16 at 09:00 Furosemide (Lasix) 40 mg DAILY@06 PO Last administered on 06/10/16 05:04; Admin Dose 40 MG; Start 05/31/16 at 06:00 Losartan Potassium (Cozaar) 25 mg DAILY PO Last administered on 05/31/16 08:51 ; Admin Dose 25 MG; Start 05/31/16 at 09:00; Status Future Hold Nitroglycerin (Nitroglycerin (Sl Tab) 0.4 Mg) 1 tab PRN PRN SL CHEST PAIN; Start 05/30/16 at 22:30 Potassium Chloride (Klor-Con 10) 10 meq AM PO Last administered on 06/10/16 09: 45; Admin Dose 10 MEQ; Start 05/31/16 at 09:00 Magnesium Hydroxide (Milk Of Mag) 30 ml DAILY PRN PO CONSTIPATION; Start at 07:00 Aspirin (Halfprin) 81 mg DAILY PO Last administered on 06/10/16 09:44; Admin Dose 81 MG; Start 05/31/16 at 09:00 IV Flush (NS 10 ml) 10 ml PRN PRN IV IV PROTOCOL; Start 06/01/16 at 13:30 Docusate Sodium 100 mg 100 mg BID NGT Last administered on 06/10/16 09:45; Admin Dose 100 MG; Start 06/06/16 at 21:00 Multivitamins/ Thiamine HCl/ Folic Acid/Sodium Chloride (Mvi Adult/ Vitamin B1/ Folic Acid/NS) 1,011.2 ml @ 75 mls/hr DAILY@09 IVPB ; Start 06/07/16 at 09:00; Status Future Hold Chlordiazepoxide (Librium) 100 mg Q8H PRN PO AGITATION Last administered on 06/09 01:24; Admin Dose 100 MG; Start 06/06/16 at 23:30 Prednisone (Prednisone) 30 mg DAILY PO Last administered on 06/10/16 09:43; Admin Dose 30 MG; Start 06/09/16 at 09:00 Heparin Sodium (Porcine) (Heparin (5000 Units/0.5 ml)) 5,000 unit BID SC Last administered on 06/10/16 09:39; Admin Dose 5,000 UNIT; Start 06/08/16 at 21:00 Metoprolol Succinate (Toprol Xl) 25 mg BID PO Last administered on 06/09/16 20: 55; Admin Dose 25 MG; Start 06/09/16 at 21:00 Digoxin (Digoxin) 0.125 mg DAILY@13 PO ; Start 06/10/16 at 13:00 Acetaminophen (Tylenol Tab) 500 mg Q6H PRN PO PAIN AND OR ELEVATED TEMP; Start 06/09/16 at 15:30 Alprazolam (Xanax) 0.5 mg Q8H PRN PO ANXIETY Last administered on 06/10/16 02: 56; Admin Dose 0.5 MG; Start 06/09/16 at 15:30 Pantoprazole (Protonix Tab) 40 mg DAILY@06 PO Last administered on 06/10/16t 05: 04; Admin Dose 40 MG; Start 06/10/16 at 06:00 JLUIS BARRETT MD June 10, 2016 11:40
[2016-06-10] MEDS: DIGOXIN 0.125 MG TAB PO SCH (13:44)
[2016-06-10] MEDS: ATORVASTATIN 20 MG TAB PO SCH (20:51)
[2016-06-11] VITALS (13 sets, daily range): BP systolic 89–138; BP diastolic 57–79; PULSE 75–103; RESP 19–20
[2016-06-11] MEDS: ALPRAZOLAM 0.5 MG TAB PO PRN (00:50)
[2016-06-11] MEDS: PANTOPRAZOLE (EC) 40 MG TAB PO SCH (06:48)
[2016-06-11] MEDS: FUROSEMIDE 40 MG TAB PO SCH (06:49)
[2016-06-11 07:12] LABS: ADD SCAN DIFF NO
[2016-06-11 07:24] LABS: BASOPHILS % 0.1 % (0.0-2.0); EOSINOPHILS # 0.4 10^3/ul (0.0-0.5); EOSINOPHILS % 2.1 % (0.0-7.0); HEMATOCRIT 45.8 % (42.0-52.0); HEMOGLOBIN 14.7 g/dl (14.0-18.0); LYMPHOCYTES # 3.5 10^3/ul (0.8-2.9); LYMPHOCYTES % 21.3 % (15.0-51.0); MEAN CORPUSCULAR HEMOGLOBIN 30.7 pg (29.0-33.0); MEAN CORPUSCULAR HGB CONC 32.1 g/dl (32.0-37.0); MEAN CORPUSCULAR VOLUME 95.6 fl (82.0-101.0); MEAN PLATELET VOLUME 12.2 fl (7.4-10.4); MONOCYTE # 1.1 10^3/ul (0.3-0.9); MONOCYTES % 6.6 % (0.0-11.0); NEUTROPHIL # 11.4 10^3/ul (1.6-7.5); PLATELET COUNT 143 10^3/UL (140-415); RED BLOOD COUNT 4.79 10^6/ul (4.70-6.10); RED CELL DISTRIBUTION WIDTH 14.4 % (11.5-14.5); WHITE BLOOD COUNT 16.5 10^3/ul (4.8-10.8)
[2016-06-11 07:31] LABS: PHOSPHORUS 3.2 mg/dl (2.5-4.9)
[2016-06-11 07:32] LABS: MAGNESIUM 1.9 mg/dl (1.7-2.5)
[2016-06-11 07:43] LABS: CREATININE 0.65 mg/dl (0.61-1.24); POTASSIUM 3.3 mmol/L (3.5-5.1)
[2016-06-11] MEDS: predniSONE 10 MG TAB PO SCH (08:56)
[2016-06-11] MEDS: ASPIRIN (EC) 81 MG TAB PO SCH (08:56)
[2016-06-11] MEDS: POTASSIUM CHLORIDE (SR) 10 MEQ TAB PO SCH (08:57)
[2016-06-11] MEDS: CLOPIDOGREL 75 MG TAB PO SCH (08:57)
[2016-06-11] MEDS: METOPROLOL (XL) 25 MG TAB PO SCH ×2 (08:57→21:00)
[2016-06-11] MEDS: DOCUSATE SODIUM 10 MG/ML (10ML CUP) NGT SCH ×2 (08:57→22:02)
[2016-06-11] MEDS: HEPARIN 5,000 UNIT/0.5 ML VIAL SC SCH ×2 (09:05→22:07)
--- NOTE | 2016-06-11 11:06 | PN ---
Date/Time of Note Date/Time of Note DATE: 06/11/16 TIME: 11:05 Assessment/Plan VTE Prophylaxis VTE Prophylaxis Intervention: heparin Lines/Catheters IV [facility]from [facility] Urinary Cath still in place: No Assessment/Plan Chief Complaint/Hosp Course 1. Acute respiratory failure, hypoxic and hypercapnic. Status post intubation. Extubated on 06/06/2016. Continue inhaled bronchodilators. The etiology of the patient's acute respiratory failure could be multifactorial including COPD and underlying heart disease. 2. Chronic obstructive pulmonary disease exacerbation. Continue inhaled bronchodilators and tapering dose of steroids. Pulmonary following the patient. 3. Atrial fibrillation with rapid ventricular response. Currently, the rate is controlled. Cardiology following. Continue amiodarone. 4. Recent CAD status post stent placement. Continue antiplatelet therapy. 5. Thrombocytopenia. Monitor for any bleeding. Continue antiplatelet therapy because of recent stent placement to the right coronary artery. 6. Prediabetes. Continue to monitor random blood glucose. If the patient's random blood glucose levels are running high, we will start the patient on insulin sliding scale. 7. Dyslipidemia. Continue statins. 8. Possible alcohol withdrawal. Patient on Librium. 9. Fluid, electrolytes and nutrition. Low-cholesterol diet. 10. Deep venous thrombosis prophylaxis with subQ heparin. 11. Gastrointestinal prophylaxis. Proton pump inhibitors. PLAN: Continue tapering dose of steroids. Continue physical therapy. Replete potassium. The case was discussed with Dr. Tellez. Problems: Subjective 24 Hr Interval Summary Free Text/Dictation Walking around the unit with a walker. Has a 1:1 sitter for impulsive behavior. Exam/Review of Systems Vital Signs Vitals Vital Signs Date Time Temp Pulse Resp B/P Pulse Ox O2 Delivery O2 Flow Rate FiO2 06/11/16 08:06 75 06/11/16 07:25 97.8 20 103/63 94 06/10/16 17:36 3.0 06/07/16 20:00 Nasal Cannula Intake and Output 06/10/16 06/10/16 06/11/16 15:00 23:00 07:00 Intake Total 850 ml 400 ml Balance 850 ml 400 ml Exam GENERAL: This is an obese male patient lying in bed in no apparent distress. HEENT: Head normocephalic and atraumatic. Eyes: Anicteric sclerae. Conjunctivae clear. ENT: Nasal septum is midline. Oral mucosa is dry. RESPIRATORY: Bilateral diminished breath sounds. CARDIAC: Irregularly irregular rhythm. S1 and S2 heard. ABDOMEN: Soft, nontender and nondistended. Bowel sounds positive in all 4 quadrants. GENITOURINARY: The patient has a Tellez catheter in place. EXTREMITIES: No cyanosis. Bilateral lower extremity trace pedal edema. Peripheral pulses are palpable. NEUROLOGIC: The patient is awake and alert. Oriented X 3. Moves all four extremities. Results Result Diagram: 06/11/16 0659 06/11/16 0558 Results 24 hrs Laboratory Tests Test 06/11/16 05:58 06/11/16 06:59 Sodium Level 134 L Potassium Level 3.3 L Chloride Level 97 Carbon Dioxide Level 33 H Anion Gap 7 L Blood Urea Nitrogen 20 Creatinine 0.65 Glucose Level 152 Calcium Level 8.0 L Phosphorus Level 3.2 Magnesium Level 1.9 White Blood Count 16.5 H Red Blood Count 4.79 Hemoglobin 14.7 Hematocrit 45.8 Mean Corpuscular Volume 95.6 Mean Corpuscular Hemoglobin 30.7 Mean Corpuscular Hemoglobin Concent 32.1 Red Cell Distribution Width 14.4 Platelet Count 143 Mean Platelet Volume 12.2 H Neutrophils % 69.0 Lymphocytes % 21.3 Monocytes % 6.6 Eosinophils % 2.1 Basophils % 0.1 Nucleated Red Blood Cells % 0.0 Neutrophils # 11.4 H Lymphocytes # 3.5 H Monocytes # 1.1 H Eosinophils # 0.4 Basophils # 0.0 Nucleated Red Blood Cells # 0.0 Medications Medications Current Medications Morphine Sulfate (morphine) 2 mg Q4H PRN IV PAIN LEVEL 7-10 Last administered on 06/07/16 22:01; Admin Dose 2 MG; Start 05/30/16 at 22:30 Ondansetron HCl (Zofran Inj) 4 mg Q6H PRN IV NAUSEA AND/OR VOMITING; Start at 22:30 Atorvastatin Calcium (Lipitor) 20 mg QHS PO Last administered on 06/10/16 20:51 ; Admin Dose 20 MG; Start 05/31/16 at 21:00 Clopidogrel Bisulfate (plaVIX) 75 mg DAILY PO Last administered on 06/11/16 08: 57; Admin Dose 75 MG; Start 05/31/16 at 09:00 Furosemide (Lasix) 40 mg DAILY@06 PO Last administered on 06/11/16 06:49; Admin Dose 40 MG; Start 05/31/16 at 06:00 Losartan Potassium (Cozaar) 25 mg DAILY PO Last administered on 05/31/16 08:51 ; Admin Dose 25 MG; Start 05/31/16 at 09:00; Status Future Hold Nitroglycerin (Nitroglycerin (Sl Tab) 0.4 Mg) 1 tab PRN PRN SL CHEST PAIN; Start 05/30/16 at 22:30 Potassium Chloride (Klor-Con 10) 10 meq AM PO Last administered on 06/11/16 08: 57; Admin Dose 10 MEQ; Start 05/31/16 at 09:00 Magnesium Hydroxide (Milk Of Mag) 30 ml DAILY PRN PO CONSTIPATION; Start at 07:00 Aspirin (Halfprin) 81 mg DAILY PO Last administered on 06/11/16 08:56; Admin Dose 81 MG; Start 05/31/16 at 09:00 IV Flush (NS 10 ml) 10 ml PRN PRN IV IV PROTOCOL; Start 06/01/16 at 13:30 Docusate Sodium 100 mg 100 mg BID NGT Last administered on 06/11/16 08:57; Admin Dose 100 MG; Start 06/06/16 at 21:00 Multivitamins/ Thiamine HCl/ Folic Acid/Sodium Chloride (Mvi Adult/ Vitamin B1/ Folic Acid/NS) 1,011.2 ml @ 75 mls/hr DAILY@09 IVPB ; Start 06/07/16 at 09:00; Status Future Hold Chlordiazepoxide (Librium) 100 mg Q8H PRN PO AGITATION Last administered on 06/09 01:24; Admin Dose 100 MG; Start 06/06/16 at 23:30 Prednisone (Prednisone) 30 mg DAILY PO Last administered on 06/11/16 08:56; Admin Dose 30 MG; Start 06/09/16 at 09:00 Heparin Sodium (Porcine) (Heparin (5000 Units/0.5 ml)) 5,000 unit BID SC Last administered on 06/11/16 09:05; Admin Dose 5,000 UNIT; Start 06/08/16 at 21:00 Metoprolol Succinate (Toprol Xl) 25 mg BID PO Last administered on 06/11/16 08: 57; Admin Dose 25 MG; Start 06/09/16 at 21:00 Digoxin (Digoxin) 0.125 mg DAILY@13 PO Last administered on 06/10/16 13:44; Admin Dose 0.125 MG; Start 06/10/16 at 13:00 Acetaminophen (Tylenol Tab) 500 mg Q6H PRN PO PAIN AND OR ELEVATED TEMP; Start 06/09/16 at 15:30 Alprazolam (Xanax) 0.5 mg Q8H PRN PO ANXIETY Last administered on 06/11/16 00: 50; Admin Dose 0.5 MG; Start 06/09/16 at 15:30 Pantoprazole (Protonix Tab) 40 mg DAILY@06 PO Last administered on 06/11/16 06: 48; Admin Dose 40 MG; Start 06/10/16 at 06:00 NELSON BARLOW NP June 11, 2016 11:06
[2016-06-11] MEDS ORDERED: POTASSIUM CHLORIDE (SR) 10 MEQ TAB PO ONE (11:30)
[2016-06-11] MEDS: DIGOXIN 0.125 MG TAB PO SCH (12:08)
--- NOTE | 2016-06-11 13:15 | CONS ---
Date/Time of Note Date/Time of Note DATE: 06/11/16 TIME: 13:13 Assessment/Plan Assessment/Plan Additional Assessment/Plan 1. Atrial fibrillation- increased rate, will monitor - con't to follow 2. Abnormal electrocardiogram, assess for acute coronary syndrome.-negative troponin x 3 - no CP, doubt ischemia 3. Respiratory failure, assess for congestive heart failure - stable fluid status 4. History of percutaneous transluminal coronary angioplasty and stent placement 1 week prior at [facility] on aspirin and Plavix. Con't med rx 5. Hypotension- well rx now 6. Probable chronic obstructive pulmonary disease by history and chest x-ray findings- con't resp Rx - better overall 7. Hyponatremia-improved 8. Respiratory failure s/p extubation - saturating Ok Consultation Date/Type/Reason Admit Date/Time May 30, 2016 at 20:05 Initial Consult Date 05/31/16 Type of Consultation: pulmonary Referring Provider: BERNARDO PULIDO MD 24 HR Interval Summary Free Text/Dictation Pt with increased HR - will adjust Rx as tolerated ROS: No fever, no chills, no nausea, no vomiting, no diarrhea/constipation No recent weight changes No chest pain, no PND, no orthopnea No dizziness, blurred vision No thirst, no heat or cold intolerance Exam/Review of Systems Vital Signs Vitals Vital Signs Date Time Temp Pulse Resp B/P Pulse Ox O2 Delivery O2 Flow Rate FiO2 06/11/16 12:19 96 06/11/16 07:25 97.8 20 103/63 94 06/10/16 17:36 3.0 06/07/16 20:00 Nasal Cannula Intake and Output 06/10/16 06/10/16 06/11/16 15:00 23:00 07:00 Intake Total 850 ml 400 ml Balance 850 ml 400 ml Exam General: WN/WD/NAD, AOx 2-3 HEENT: Unicetric/atraumatic/EOMI (follow commands) NECK: JVD elevated, no thyromegaly Lymph: no lymphadenopathy HEART: IRregular with no S3, II/ systolic murmur at apex LUNGS: Coarse sounds ABD: soft, NT, ND, +BS : Intact Neuro: non focal SKIN: chronic changes EXT: trace edema Results Result Diagram: 06/11/16 0659 06/11/16 0558 Results 24 hrs Laboratory Tests Test 06/11/16 05:58 5/7/17 06:59 Sodium Level 134 L Potassium Level 3.3 L Chloride Level 97 Carbon Dioxide Level 33 H Anion Gap 7 L Blood Urea Nitrogen 20 Creatinine 0.65 Glucose Level 152 Calcium Level 8.0 L Phosphorus Level 3.2 Magnesium Level 1.9 White Blood Count 16.5 H Red Blood Count 4.79 Hemoglobin 14.7 Hematocrit 45.8 Mean Corpuscular Volume 95.6 Mean Corpuscular Hemoglobin 30.7 Mean Corpuscular Hemoglobin Concent 32.1 Red Cell Distribution Width 14.4 Platelet Count 143 Mean Platelet Volume 12.2 H Neutrophils % 69.0 Lymphocytes % 21.3 Monocytes % 6.6 Eosinophils % 2.1 Basophils % 0.1 Nucleated Red Blood Cells % 0.0 Neutrophils # 11.4 H Lymphocytes # 3.5 H Monocytes # 1.1 H Eosinophils # 0.4 Basophils # 0.0 Nucleated Red Blood Cells # 0.0 Medications Medications Current Medications Morphine Sulfate (morphine) 2 mg Q4H PRN IV PAIN LEVEL 7-10 Last administered on 06/07/16 22:01; Admin Dose 2 MG; Start 05/30/16 at 22:30 Ondansetron HCl (Zofran Inj) 4 mg Q6H PRN IV NAUSEA AND/OR VOMITING; Start at 22:30 Atorvastatin Calcium (Lipitor) 20 mg QHS PO Last administered on 06/10/16 20:51 ; Admin Dose 20 MG; Start 05/31/16 at 21:00 Clopidogrel Bisulfate (plaVIX) 75 mg DAILY PO Last administered on 06/11/16 08: 57; Admin Dose 75 MG; Start 05/31/16 at 09:00 Furosemide (Lasix) 40 mg DAILY@06 PO Last administered on 06/11/16 06:49; Admin Dose 40 MG; Start 05/31/16 at 06:00 Losartan Potassium (Cozaar) 25 mg DAILY PO Last administered on 05/31/16 08:51 ; Admin Dose 25 MG; Start 05/31/16 at 09:00; Status Future Hold Nitroglycerin (Nitroglycerin (Sl Tab) 0.4 Mg) 1 tab PRN PRN SL CHEST PAIN; Start 05/30/16 at 22:30 Potassium Chloride (Klor-Con 10) 10 meq AM PO Last administered on 06/11/16 08: 57; Admin Dose 10 MEQ; Start 05/31/16 at 09:00 Magnesium Hydroxide (Milk Of Mag) 30 ml DAILY PRN PO CONSTIPATION; Start at 07:00 Aspirin (Halfprin) 81 mg DAILY PO Last administered on 06/11/16 08:56; Admin Dose 81 MG; Start 05/31/16 at 09:00 IV Flush (NS 10 ml) 10 ml PRN PRN IV IV PROTOCOL; Start 06/01/16 at 13:30 Docusate Sodium 100 mg 100 mg BID NGT Last administered on 06/11/16 08:57; Admin Dose 100 MG; Start 06/06/16 at 21:00 Multivitamins/ Thiamine HCl/ Folic Acid/Sodium Chloride (Mvi Adult/ Vitamin B1/ Folic Acid/NS) 1,011.2 ml @ 75 mls/hr DAILY@09 IVPB ; Start 06/07/16 at 09:00; Status Future Hold Chlordiazepoxide (Librium) 100 mg Q8H PRN PO AGITATION Last administered on 06/09 01:24; Admin Dose 100 MG; Start 06/06/16 at 23:30 Prednisone (Prednisone) 30 mg DAILY PO Last administered on 06/11/16 08:56; Admin Dose 30 MG; Start 06/09/16 at 09:00 Heparin Sodium (Porcine) (Heparin (5000 Units/0.5 ml)) 5,000 unit BID SC Last administered on 06/11/16 09:05; Admin Dose 5,000 UNIT; Start 06/08/16 at 21:00 Metoprolol Succinate (Toprol Xl) 25 mg BID PO Last administered on 06/11/16 08: 57; Admin Dose 25 MG; Start 06/09/16 at 21:00 Digoxin (Digoxin) 0.125 mg DAILY@13 PO Last administered on 06/11/16 12:08; Admin Dose 0.125 MG; Start 06/10/16 at 13:00 Acetaminophen (Tylenol Tab) 500 mg Q6H PRN PO PAIN AND OR ELEVATED TEMP; Start 06/09/16 at 15:30 Alprazolam (Xanax) 0.5 mg Q8H PRN PO ANXIETY Last administered on 06/11/16 00: 50; Admin Dose 0.5 MG; Start 06/09/16 at 15:30 Pantoprazole (Protonix Tab) 40 mg DAILY@06 PO Last administered on 06/11/16t 06: 48; Admin Dose 40 MG; Start 06/10/16 at 06:00 JLUIS BARRETT MD June 11, 2016 13:15
[2016-06-11] MEDS: ATORVASTATIN 20 MG TAB PO SCH (22:03)
[2016-06-12] VITALS (7 sets, daily range): BP systolic 104–122; BP diastolic 66–78; PULSE 70–105; RESP 19–21
[2016-06-12] MEDS: ALPRAZOLAM 0.5 MG TAB PO PRN (01:58)
[2016-06-12] MEDS: PANTOPRAZOLE (EC) 40 MG TAB PO SCH (05:17)
[2016-06-12] MEDS: FUROSEMIDE 40 MG TAB PO SCH (05:18)
[2016-06-12 06:01] LABS: ADD SCAN DIFF NO
[2016-06-12 06:14] LABS: BASOPHILS % 0.1 % (0.0-2.0); EOSINOPHILS # 0.3 10^3/ul (0.0-0.5); EOSINOPHILS % 1.5 % (0.0-7.0); HEMATOCRIT 45.6 % (42.0-52.0); HEMOGLOBIN 14.8 g/dl (14.0-18.0); LYMPHOCYTES # 3.9 10^3/ul (0.8-2.9); LYMPHOCYTES % 22.4 % (15.0-51.0); MEAN CORPUSCULAR HEMOGLOBIN 31.2 pg (29.0-33.0); MEAN CORPUSCULAR HGB CONC 32.5 g/dl (32.0-37.0); MONOCYTE # 1.4 10^3/ul (0.3-0.9); MONOCYTES % 8.1 % (0.0-11.0); NEUTROPHIL # 11.7 10^3/ul (1.6-7.5); NEUTROPHILS % 66.9 % (39.0-77.0); PLATELET COUNT 160 10^3/UL (140-415); RED BLOOD COUNT 4.75 10^6/ul (4.70-6.10); RED CELL DISTRIBUTION WIDTH 14.6 % (11.5-14.5); WHITE BLOOD COUNT 17.5 10^3/ul (4.8-10.8)
[2016-06-12 06:45] LABS: CALCIUM 8.7 mg/dl (8.4-10.2); CREATININE 0.72 mg/dl (0.61-1.24); POTASSIUM 4.6 mmol/L (3.5-5.1)
[2016-06-12 06:48] LABS: MAGNESIUM 1.9 mg/dl (1.7-2.5); PHOSPHORUS 2.9 mg/dl (2.5-4.9)
[2016-06-12] MEDS: METOPROLOL (XL) 25 MG TAB PO SCH (09:00)
[2016-06-12] MEDS: predniSONE 10 MG TAB PO SCH (09:57)
[2016-06-12] MEDS: DOCUSATE SODIUM 10 MG/ML (10ML CUP) NGT SCH (09:57)
[2016-06-12] MEDS: ASPIRIN (EC) 81 MG TAB PO SCH (09:58)
[2016-06-12] MEDS: POTASSIUM CHLORIDE (SR) 10 MEQ TAB PO SCH (09:58)
[2016-06-12] MEDS: CLOPIDOGREL 75 MG TAB PO SCH (09:58)
[2016-06-12] MEDS: HEPARIN 5,000 UNIT/0.5 ML VIAL SC SCH (10:03)
--- NOTE | 2016-06-12 11:49 | CONS ---
Date/Time of Note Date/Time of Note DATE: 06/12/16 TIME: 11:47 Assessment/Plan Assessment/Plan Chief Complaint/Hosp Course IMPRESSION: 1. Atrial fibrillation-Now with RVR 2. Abnormal electrocardiogram, assess for acute coronary syndrome.-negative troponin x 3 3. Respiratory failure, assess for congestive heart failure. 4. History of percutaneous transluminal coronary angioplasty and stent placement 1 week prior to admission at [facility] on aspirin and Plavix. 5. Hypotension. 6. Probable chronic obstructive pulmonary disease by history and chest x-ray findings. 7. Hyponatremia-improved 8. Respiratory failure s/p extubation Recc: -Tele -serial ecg -Continue toprol as tolerated -Contineu digoxin -Continue amio for now -Continue asa/plavix -Continue SQ heparin -Continue abx's/PO steroids/bronchodilators -F/U cx data -D/C planning Problems: Consultation Date/Type/Reason Admit Date/Time May 30, 2016 at 20:05 Initial Consult Date 05/31/16 Type of Consultation: Cardiology Reason for Consultation AF Referring Provider: BERNARDO PULIDO MD Exam/Review of Systems Vital Signs Vitals Vital Signs Date Time Temp Pulse Resp B/P Pulse Ox O2 Delivery O2 Flow Rate FiO2 06/12/16 08:17 82 06/12/16 08:00 97.7 20 104/66 100 Room Air 06/10/16 17:36 3.0 Intake and Output 06/11/16 06/11/16 06/12/16 15:00 23:00 07:00 Intake Total 800 ml 600 ml Balance 800 ml 600 ml Exam Review of Systems: CONSTITUTIONAL: No fevers, chills. PULMONARY: No sob CARDIOVASCULAR: No chest pain/palpitations GASTROINTESTINAL: No nausea/vomiting. GENITOURINARY: No hematuria/dysuria. MUSCULOSKELETAL: No myagias/arthalgias. PSYCHIATRIC: The patient denies depression. NEUROLOGIC: No weakness Constitutional: alert, oriented Psych: no complaints Head: normocephalic ENMT: mucosa pink and moist Neck: jvd (9 cm water), supple Respiratory: clear to auscultation Cardiovascular: irregular rhythm Gastrointestinal: non-tender, soft Musculoskeletal: muscle tone (normal) Extremities: edema (none) Neurological: other (No focal deficits) Results Result Diagram: 06/12/1640 06/12/16 0540 Results 24 hrs Laboratory Tests Test 06/12/16 05:40 White Blood Count 17.5 H Red Blood Count 4.75 Hemoglobin 14.8 Hematocrit 45.6 Mean Corpuscular Volume 96.0 Mean Corpuscular Hemoglobin 31.2 Mean Corpuscular Hemoglobin Concent 32.5 Red Cell Distribution Width 14.6 H Platelet Count 160 Mean Platelet Volume 12.0 H Neutrophils % 66.9 Lymphocytes % 22.4 Monocytes % 8.1 Eosinophils % 1.5 Basophils % 0.1 Nucleated Red Blood Cells % 0.0 Neutrophils # 11.7 H Lymphocytes # 3.9 H Monocytes # 1.4 H Eosinophils # 0.3 Basophils # 0.0 Nucleated Red Blood Cells # 0.0 Sodium Level 136 Potassium Level 4.6 Chloride Level 98 Carbon Dioxide Level 34 H Anion Gap 9 Blood Urea Nitrogen 22 H Creatinine 0.72 Glucose Level 114 Calcium Level 8.7 Phosphorus Level 2.9 Magnesium Level 1.9 Medications Medications Current Medications Morphine Sulfate (morphine) 2 mg Q4H PRN IV PAIN LEVEL 7-10 Last administered on 06/07/16 22:01; Admin Dose 2 MG; Start 05/30/16 at 22:30 Ondansetron HCl (Zofran Inj) 4 mg Q6H PRN IV NAUSEA AND/OR VOMITING; Start at 22:30 Atorvastatin Calcium (Lipitor) 20 mg QHS PO Last administered on 06/11/16 22:03 ; Admin Dose 20 MG; Start 05/31/16 at 21:00 Clopidogrel Bisulfate (plaVIX) 75 mg DAILY PO Last administered on 06/12/16 09: 58; Admin Dose 75 MG; Start 05/31/16 at 09:00 Furosemide (Lasix) 40 mg DAILY@06 PO Last administered on 06/12/16 05:18; Admin Dose 40 MG; Start 05/31/16 at 06:00 Losartan Potassium (Cozaar) 25 mg DAILY PO Last administered on 05/31/16 08:51 ; Admin Dose 25 MG; Start 05/31/16 at 09:00; Status Future Hold Nitroglycerin (Nitroglycerin (Sl Tab) 0.4 Mg) 1 tab PRN PRN SL CHEST PAIN; Start 05/30/16 at 22:30 Potassium Chloride (Klor-Con 10) 10 meq AM PO Last administered on 06/12/16 09: 58; Admin Dose 10 MEQ; Start 05/31/16 at 09:00 Magnesium Hydroxide (Milk Of Mag) 30 ml DAILY PRN PO CONSTIPATION; Start at 07:00 Aspirin (Halfprin) 81 mg DAILY PO Last administered on 06/12/16 09:58; Admin Dose 81 MG; Start 05/31/16 at 09:00 IV Flush (NS 10 ml) 10 ml PRN PRN IV IV PROTOCOL; Start 06/01/16 at 13:30 Docusate Sodium 100 mg 100 mg BID NGT Last administered on 06/12/16 09:57; Admin Dose 100 MG; Start 06/06/16 at 21:00 Multivitamins/ Thiamine HCl/ Folic Acid/Sodium Chloride (Mvi Adult/ Vitamin B1/ Folic Acid/NS) 1,011.2 ml @ 75 mls/hr DAILY@09 IVPB ; Start 06/07/16 at 09:00; Status Future Hold Chlordiazepoxide (Librium) 100 mg Q8H PRN PO AGITATION Last administered on 06/09 01:24; Admin Dose 100 MG; Start 06/06/16 at 23:30 Heparin Sodium (Porcine) (Heparin (5000 Units/0.5 ml)) 5,000 unit BID SC Last administered on 06/12/16 10:03; Admin Dose 5,000 UNIT; Start 06/08/16 at 21:00 Metoprolol Succinate (Toprol Xl) 25 mg BID PO Last administered on 06/11/16 21: 00; Admin Dose 25 MG; Start 06/09/16 at 21:00 Digoxin (Digoxin) 0.125 mg DAILY@13 PO Last administered on 06/11/16 12:08; Admin Dose 0.125 MG; Start 06/10/16 at 13:00 Acetaminophen (Tylenol Tab) 500 mg Q6H PRN PO PAIN AND OR ELEVATED TEMP; Start 06/09/16 at 15:30 Alprazolam (Xanax) 0.5 mg Q8H PRN PO ANXIETY Last administered on 06/12/16 01: 58; Admin Dose 0.5 MG; Start 06/09/16 at 15:30 Pantoprazole (Protonix Tab) 40 mg DAILY@06 PO Last administered on 06/12/16 05: 17; Admin Dose 40 MG; Start 06/10/16 at 06:00 MIGUEL ANGEL GAOAN June 12, 2016 11:49
[2016-06-12] MEDS ORDERED: POTA10TA37 PO (11:50)
[2016-06-12] MEDS ORDERED: FURO40TA4 PO (11:50)
[2016-06-12] MEDS ORDERED: ALBU18HF INH (11:50)
[2016-06-12] MEDS ORDERED: MULTI PO (11:50)
[2016-06-12] MEDS ORDERED: CLOP75TA27 PO (11:50)
[2016-06-12] MEDS ORDERED: DIGO125T PO (11:50)
[2016-06-12] MEDS ORDERED: METO25TA7 PO (11:50)
[2016-06-12] MEDS ORDERED: ASPI-664 PO (11:50)
[2016-06-12] MEDS ORDERED: PANT40TA4 PO (11:50)
--- NOTE | 2016-06-12 11:57 | PDOCDIS ---
Discharge Instructions DIAGNOSIS Discharge Diagnosis: 1. Acute respiratory failure 2. COPD exacerbation 3. A. fib with RVR 4. CONDITION Patient Condition: Stable HOME CARE INSTRUCTIONS: Special Diet: LOW FAT, LOW CHOLESTEROL DIET FOLLOW UP/APPOINTMENTS Appointments 1. Follow-up with Dr. Volodymyr Mercer within a week OTHER ORDERS: Other Orders: 1. Stop alcohol consumption and cigarette smoking MICHAEL BURCIAGA June 12, 2016 11:57
--- NOTE | 2016-06-12 13:52 | DS ---
Date/Time of Note Date/Time of Note DATE: 06/12/16 TIME: 13:50 Discharge Summary Admission/Discharge Info Admit Date/Time May 30, 2016 at 20:05 Discharge Date/Time June 12, 2016 at 12:45 Final Diagnosis 1. Acute respiratory failure, hypoxic and hypercapnic 2. COPD exacerbation 3. Atrial fibrillation with rapid response 4. Recent CAD status post stent placement 5. Thrombocytopenia 6. Dyslipidemia Patient Condition: Stable Consults 1. Dr. Volodymyr Mercer 2. Dr. Gautam Dela Cruz 3. Dr. Talon Lima 4. Dr. prado [facility] Course This is a 61-year-old male with history of hypertension, CAD status post stent 1 week ago and [facility] came to [facility] due to reports of chest pain shortness of breath. According to the patient he did have some chest pain pressure-like in nature and nonradiating. He reported his symptoms lasted for 1-2 days duration. Of note he was initially at [facility] for hernia repair and he did report that while he was being operated on "my heart started beating irregularly". Patient did have workup that showed him to have a blocked artery and had a stent placed at that time. He did report compliance with his medication of Plavix. Patient did have complicated stay during his stay. He was noted that on May 31, 2016 PROFESSIONAL HEALTHCARE REPRESENTATIVE was done. Patient did have respiratory distress and was placed on BiPAP. Due to his decreased level of consciousness and hypercapnia he was seen by security assessor and transferred to ICU where he was intubated. Safe Deposit Clerk did follow him as well for his history of CAD and he was optimized on his cardiovascular medications. Patient did have good response with bronchodilator therapy as well as diuresis. We did resume his statin and antiplatelet therapy for his history of CAD. Of note patient also did have some atrial fibrillation from which he was controlled with amiodarone initially and we did have the center director lead teacher and the medical management of this issue. He is also in for suspect pneumonia and placed on antibiotics empirically. During his course of stay he did improve. He was finally extubated on June 06, 2016 and continued on bronchodilators. He was instructed to discontinue his cigarette smoking from which he did have an extensive history of. He was resumed on bronchodilators and we did taper his steroids. Was atrial fibrillation we did get it controlled and he was resumed on beta-ayesha medication and he did have good response. He was continued on antiplatelet therapy for his history of CAD. During his course of stay he did improve. Patient did have good response to diuresis and bronchodilator therapy. Patient was alert and oriented. He was seen on room air with no difficulty with his breathing. He was instructed to follow-up with center director lead teacher within a week and to take his medications as prescribed. The plan of care was discussed with the patient and patient did verbalizes understanding. On the day of discharge patient was in stable condition Discussed plan of care with . vanessa/jay process time: 40 minutes Home Meds Active Scripts Multivitamins* (Theragran*) 1 Tab Tab, 1 TAB PO DAILY for 30 Days, TAB Prov:MICHAEL BURCIAGA 06/12/16 Potassium Chloride* (K-Dur*) 10 Meq Tab.prt.sr, 10 MEQ PO every other day, #20 Prov:MICHAEL BURCIAGA 06/12/16 Pantoprazole* (Pantoprazole*) 40 Mg Tablet., 40 MG PO DAILY@06 for 30 Days Prov:MICHAEL BURCIAGA 06/12/16 Metoprolol Succinate* (Toprol XL*) 25 Mg Tab.sr.24h, 25 MG PO BID for 30 Days Prov:MICHAEL BURCIAGA 06/12/16 Furosemide* (Furosemide*) 40 Mg Tablet, 40 MG PO DAILY@06 for 30 Days, TAB Prov:MICHAEL BURCIAGA 06/12/16 Digoxin* (Digitek*) 125 Mcg Tablet, 0.125 MG PO DAILY@13 for 30 Days, TAB Prov:MICHAEL BURCIAGA 06/12/16 Aspirin* (Aspirin* EC) 81 Mg Tablet., 81 MG PO DAILY for 30 Days Prov:MICHAEL BURCIAGA 06/12/16 Albuterol Sulfate* (Ventolin HFA*) 18 Gm Hfa.aer.ad, 4 PUFF INH Q4H RESP THERAPY Y for wheezing for 30 Days Prov:MICHAEL BURCIAGA 06/12/16 Clopidogrel Bisulfate (Clopidogrel) 75 Mg Tablet, 75 MG PO DAILY, #30 TAB Prov:MICHAEL BURCIAGA 06/12/16 Reported Medications Nitroglycerin* (Nitrostat*) 0.4 Mg Tab.subl, 0.4 MG SL Q5MIN Y for CHEST PAIN, BOTTLE 05/30/16 Lorazepam* (Ativan*) 0.5 Mg Tablet, 0.5 MG PO HS, #30 TAB 05/30/16 Atorvastatin Calcium* (Atorvastatin Calcium*) 20 Mg Tablet, 20 MG PO QHS, #30 TAB 05/30/16 Discontinued Reported Medications Potassium Chloride (Klor-Con M10) 10 Meq Tab.prt.sr, 10 MEQ PO 05/30/16 Carvedilol* (Carvedilol*) 12.5 Mg Tablet, 12.5 MG PO BID, #60 TAB 05/30/16 Losartan Potassium* (Losartan Potassium*) 25 Mg Tablet, 25 MG PO DAILY, TAB HOLD IF BPS<105 05/30/16 Furosemide* (Furosemide*) 40 Mg Tablet, 40 MG PO DAILY, TAB 05/30/16 Amiodarone Hcl* (Amiodarone Hcl*) 200 Mg Tablet, 200 MG PO BID, #60 TAB 05/30/16 Follow-up Plan CONDITION Patient Condition: Stable HOME CARE INSTRUCTIONS: Special Diet: LOW FAT, LOW CHOLESTEROL DIET FOLLOW UP/APPOINTMENTS Appointments 1. Follow-up with Dr. Volodymyr Mercer within a week OTHER ORDERS: Other Orders: 1. Stop alcohol consumption and cigarette smoking Pending Labs Laboratory Tests Test 06/12/16 05:40 White Blood Count 17.510^3/ul (4.8-10.8) Red Blood Count 4.7510^6/ul (4.70-6.10) Hemoglobin 14.8g/dl (14.0-18.0) Hematocrit 45.6% (42.0-52.0) Mean Corpuscular Volume 96.0fl (82.0-101.0) Mean Corpuscular Hemoglobin 31.2pg (29.0-33.0) Mean Corpuscular Hemoglobin Concent 32.5g/dl (32.0-37.0) Red Cell Distribution Width 14.6% (11.5-14.5) Platelet Count 44300^3/UL (140-415) Mean Platelet Volume 12.0fl (7.4-10.4) Neutrophils % 66.9% (39.0-77.0) Lymphocytes % 22.4% (15.0-51.0) Monocytes % 8.1% (0.0-11.0) Eosinophils % 1.5% (0.0-7.0) Basophils % 0.1% (0.0-2.0) Nucleated Red Blood Cells % 0.0/100WBC (0.0-0.0) Neutrophils # 11.710^3/ul (1.6-7.5) Lymphocytes # 3.910^3/ul (0.8-2.9) Monocytes # 1.410^3/ul (0.3-0.9) Eosinophils # 0.310^3/ul (0.0-0.5) Basophils # 0.010^3/ul (0.0-0.1) Nucleated Red Blood Cells # 0.010^3/ul (0.0-0.0) Sodium Level 136mmol/L (135-144) Potassium Level 4.6mmol/L (3.5-5.1) Chloride Level 98mmol/L (97-110) Carbon Dioxide Level 34mmol/L (21-31) Anion Gap 9 (8-16) Blood Urea Nitrogen 22mg/dl (7-20) Creatinine 0.72mg/dl (0.61-1.24) Glucose Level 114mg/dl (70-220) Calcium Level 8.7mg/dl (8.4-10.2) Phosphorus Level 2.9mg/dl (2.5-4.9) Magnesium Level 1.9mg/dl (1.7-2.5) MICHAEL BURCIAGA June 12, 2016 13:52
== END 2016-06-12 12:45 | disposition home health service (06) | DRG 207 ==
LOC: E/R 14:17 → MS4 20:05 → ICU 05-31 15:46 → TEL 06-07 20:52
PROVIDERS: ADMIT Internal Medicine; ATTEND Internal Medicine
PROC: 0BH17EZ Insertion of Endotracheal Airway into Trachea, Via Natural or Artificial Opening (ICD-10-PCS; principal; 2016-05-31)
PROC: 5A1955Z Respiratory Ventilation, Greater than 96 Consecutive Hours (ICD-10-PCS; 2016-05-31)
PROC: 02HV33Z Insertion of Infusion Device into Superior Vena Cava, Percutaneous Approach (ICD-10-PCS; 2016-06-01)
DX: J44.0 Chronic obstructive pulmonary disease with (acute) lower respiratory infection (principal); G92 Toxic encephalopathy; J18.0 Bronchopneumonia, unspecified organism; J96.22 Acute and chronic respiratory failure with hypercapnia; I11.0 Hypertensive heart disease with heart failure; D69.6 Thrombocytopenia, unspecified; I50.9 Heart failure, unspecified; E87.1 Hypo-osmolality and hyponatremia; I48.91 Unspecified atrial fibrillation; F10.239 Alcohol dependence with withdrawal, unspecified; J44.1 Chronic obstructive pulmonary disease with (acute) exacerbation; Z95.5 Presence of coronary angioplasty implant and graft; Z79.02 Long term (current) use of antithrombotics/antiplatelets; Z72.0 Tobacco use; E66.9 Obesity, unspecified; Z68.33 Body mass index [BMI] 33.0-33.9, adult; G47.30 Sleep apnea, unspecified; R73.03 Prediabetes
CPT/HCPCS: 31500; 36415; 36569; 36600; 71010; 71275; 76937; 80048; 80053; 80061; 81003; 82550; 82553; 82803; 83036; 83605; 83735; 83880; 84100; 84484; 85014; 85018; 85025; 85049; 85610; 85670; 85730; 87040; 87070; 87081; 87086; 92526; 92610; 93005; 94002; 94003; 94640; 94644; 94660; 94664; 94770; 96374; 96375; 97116; 97530; C9113; J1630; J1644; J1940; J1956; J2060; J2270; J2405; J2543; J2930; J3370; J3411; J3480; J7030; J7040; J7060; J7512; P9045; Q9967

== ENCOUNTER 2017-08-21 06:49 | Day surgery (SDC) | END 2017-08-21 12:01 | disposition home or self-care (01) ==